=== PATIENT | female | born 1960 ===

== ENCOUNTER 2024-11-02 18:54 | Outpatient (REF) | payer SELFPAY ==
[2024-11-02 20:48] LABS: MANUAL DIFF FLAG NO
[2024-11-02 20:51] LABS: Basophils Absolute Auto 0.1 X10*3/uL (0.0-0.2); Basophils Percent Auto 0.6 % (0-2); Eosinophils Absolute Auto 0.2 X10*3/uL (0.0-0.4); Eosinophils Percent Auto 2.3 % (0-4); Hematocrit 31.7 % (37.0-47.0); Hemoglobin 10.5 g/dl (12.0-16.0); Imm Gran Abs Auto 0.03 X10*3/uL (0.00-0.03); Imm Gran Pct Auto 0.4 % (0.0-0.4); Lymphocytes Absolute Auto 1.6 X10*3/uL (1.2-4.9); Lymphocytes Percent Auto 18.4 % (20-40); Mean Corpuscular HGB Conc 33.1 g/dl (31.0-35.0); Mean Corpuscular Volume 87.6 fL (80.0-98.0); Mean Platelet Volume 9.4 fL (9.4-12.3); Monocytes Absolute Auto 0.5 X10*3/uL (0.1-1.2); Monocytes Percent Auto 5.8 % (2-11); Neutrophils Absolute Auto 6.2 x10*3/uL (2.0-8.3); Neutrophils Percent Auto 72.5 % (45-73); Platelet Count 473 X10*3/uL (160-400); Red Blood Count 3.62 X10*6/uL (4.20-5.50); Red Cell Distribution Width 12.4 % (11.0-16.0); White Blood Count 8.5 X10*3/uL (4.8-10.8)
[2024-11-02 21:01] LABS: Vancomycin Trough 15.1 mcg/mL (10.0-20.0)
[2024-11-02 21:02] LABS: Alanine Aminotransferase 47 U/L (0-31); Albumin Level 3.6 g/dL (3.5-5.0); Alkaline Phosphatase 73 U/L (39-117); Anion Gap 12 (12-20); Aspartate Amino Transferase 41 U/L (5-31); Bilirubin Total 0.2 mg/dL (0.0-1.0); Blood Urea Nitrogen 12 mg/dL (9-16); C Reactive Protein 2.58 mg/dL (< or = 0.50); Calcium 8.7 mg/dL (8.4-10.2); Carbon Dioxide 24 mmol/L (22-29); Chloride 109 mmol/L (96-108); Estimated Glomerular Filt Rate > 60; Glucose Random 147 mg/dL (60-115); Potassium 4.3 mmol/L (3.3-5.1); Sodium 141 mmol/L (135-145); Total Protein 6.4 g/dL (6.5-8.0)
[2024-11-02 21:32] LABS: Erythrocyte Sedimentation Rate 63 MM/HR (0-20)
== END 2024-11-02 18:55 | disposition home or self-care (01) ==
LOC: HO.LAB 18:54
PROVIDERS: PCP Internal Medicine Infectious Disease; Visit Provider Internal Medicine Infectious Disease
DX: T84.54XA Infection and inflammatory reaction due to internal left knee prosthesis, initial encounter (principal)
CPT/HCPCS: 36415; 80053; 80202; 85025; 85652; 86140

== ENCOUNTER 2024-11-09 09:59 | Outpatient (REF) | payer SELFPAY ==
[2024-11-09 10:09] LABS: MANUAL DIFF FLAG NO
[2024-11-09 10:39] LABS: Basophils Absolute Auto 0.1 X10*3/uL (0.0-0.2); Basophils Percent Auto 1.1 % (0-2); Eosinophils Absolute Auto 0.2 X10*3/uL (0.0-0.4); Hematocrit 37.5 % (37.0-47.0); Hemoglobin 11.7 g/dl (12.0-16.0); Imm Gran Abs Auto 0.03 X10*3/uL (0.00-0.03); Imm Gran Pct Auto 0.4 % (0.0-0.4); Lymphocytes Absolute Auto 1.8 X10*3/uL (1.2-4.9); Mean Corpuscular HGB Conc 31.2 g/dl (31.0-35.0); Mean Corpuscular Hemoglobin 27.9 pg (27.0-33.0); Mean Corpuscular Volume 89.5 fL (80.0-98.0); Mean Platelet Volume 9.8 fL (9.4-12.3); Monocytes Absolute Auto 0.5 X10*3/uL (0.1-1.2); Monocytes Percent Auto 6.9 % (2-11); Neutrophils Absolute Auto 4.8 x10*3/uL (2.0-8.3); Neutrophils Percent Auto 64.6 % (45-73); Platelet Count 415 X10*3/uL (160-400); Red Blood Count 4.19 X10*6/uL (4.20-5.50); Red Cell Distribution Width 13.2 % (11.0-16.0); White Blood Count 7.4 X10*3/uL (4.8-10.8)
[2024-11-09 11:13] LABS: Alanine Aminotransferase 20 U/L (0-31); Albumin Level 3.9 g/dL (3.5-5.0); Alkaline Phosphatase 63 U/L (39-117); Anion Gap 12 (12-20); Aspartate Amino Transferase 20 U/L (5-31); Bilirubin Total 0.4 mg/dL (0.0-1.0); Blood Urea Nitrogen 14 mg/dL (9-16); C Reactive Protein 0.42 mg/dL (< or = 0.50); Calcium 9.2 mg/dL (8.4-10.2); Carbon Dioxide 25 mmol/L (22-29); Chloride 108 mmol/L (96-108); Estimated Glomerular Filt Rate > 60; Glucose Random 84 mg/dL (60-115); Potassium 4.6 mmol/L (3.3-5.1); Sodium 140 mmol/L (135-145); Total Protein 6.8 g/dL (6.5-8.0)
[2024-11-09 11:24] LABS: Erythrocyte Sedimentation Rate 33 MM/HR (0-20)
== END 2024-11-09 10:00 | disposition home or self-care (01) ==
LOC: HO.HVNA 09:59
PROVIDERS: Visit Provider Internal Medicine Infectious Disease
DX: T84.54XA Infection and inflammatory reaction due to internal left knee prosthesis, initial encounter (principal); Z79.2 Long term (current) use of antibiotics
CPT/HCPCS: 36415; 80053; 80202; 85025; 85652; 86140

== ENCOUNTER 2024-11-16 09:19 | Outpatient (REF) | payer SELFPAY ==
[2024-11-16 09:28] LABS: MANUAL DIFF FLAG NO
[2024-11-16 09:33] LABS: Basophils Absolute Auto 0.1 X10*3/uL (0.0-0.2); Basophils Percent Auto 1.4 % (0-2); Eosinophils Absolute Auto 0.2 X10*3/uL (0.0-0.4); Eosinophils Percent Auto 4.6 % (0-4); Hematocrit 37.6 % (37.0-47.0); Hemoglobin 12.5 g/dl (12.0-16.0); Imm Gran Abs Auto 0.01 X10*3/uL (0.00-0.03); Imm Gran Pct Auto 0.2 % (0.0-0.4); Lymphocytes Absolute Auto 1.6 X10*3/uL (1.2-4.9); Lymphocytes Percent Auto 31.8 % (20-40); Mean Corpuscular HGB Conc 33.2 g/dl (31.0-35.0); Mean Corpuscular Hemoglobin 28.8 pg (27.0-33.0); Mean Corpuscular Volume 86.6 fL (80.0-98.0); Mean Platelet Volume 10.5 fL (9.4-12.3); Monocytes Absolute Auto 0.5 X10*3/uL (0.1-1.2); Monocytes Percent Auto 9.1 % (2-11); Neutrophils Absolute Auto 2.6 x10*3/uL (2.0-8.3); Neutrophils Percent Auto 52.9 % (45-73); Platelet Count 262 X10*3/uL (160-400); Red Blood Count 4.34 X10*6/uL (4.20-5.50); Red Cell Distribution Width 13.1 % (11.0-16.0)
[2024-11-16 10:17] LABS: Erythrocyte Sedimentation Rate 16 MM/HR (0-20)
[2024-11-16 10:19] LABS: Vancomycin Trough 15.3 mcg/mL (10.0-20.0)
[2024-11-16 10:22] LABS: Alanine Aminotransferase 16 U/L (0-31); Alkaline Phosphatase 64 U/L (39-117); Anion Gap 11 (12-20); Aspartate Amino Transferase 16 U/L (5-31); Bilirubin Total 0.7 mg/dL (0.0-1.0); Blood Urea Nitrogen 16 mg/dL (9-16); C Reactive Protein 0.22 mg/dL (< or = 0.50); Calcium 9.4 mg/dL (8.4-10.2); Carbon Dioxide 25 mmol/L (22-29); Chloride 107 mmol/L (96-108); Estimated Glomerular Filt Rate > 60; Glucose Random 79 mg/dL (60-115); Potassium 4.4 mmol/L (3.3-5.1); Sodium 139 mmol/L (135-145); Total Protein 6.4 g/dL (6.5-8.0)
== END 2024-11-16 09:20 | disposition home or self-care (01) ==
LOC: HO.HVNA 09:19
PROVIDERS: PCP Family Medicine; Visit Provider Family Medicine
DX: T84.54XA Infection and inflammatory reaction due to internal left knee prosthesis, initial encounter (principal)
CPT/HCPCS: 36415; 80053; 80202; 85025; 85652; 86140

== ENCOUNTER 2024-11-23 09:24 | Outpatient (REF) | payer SELFPAY ==
[2024-11-23 09:33] LABS: MANUAL DIFF FLAG NO
[2024-11-23 09:36] LABS: Basophils Percent Auto 1.1 % (0-2); Eosinophils Absolute Auto 0.2 X10*3/uL (0.0-0.4); Eosinophils Percent Auto 5.6 % (0-4); Hematocrit 36.9 % (37.0-47.0); Hemoglobin 12.4 g/dl (12.0-16.0); Imm Gran Abs Auto 0.01 X10*3/uL (0.00-0.03); Imm Gran Pct Auto 0.3 % (0.0-0.4); Lymphocytes Absolute Auto 1.2 X10*3/uL (1.2-4.9); Lymphocytes Percent Auto 33.9 % (20-40); Mean Corpuscular HGB Conc 33.6 g/dl (31.0-35.0); Mean Corpuscular Hemoglobin 28.6 pg (27.0-33.0); Mean Platelet Volume 10.4 fL (9.4-12.3); Monocytes Absolute Auto 0.4 X10*3/uL (0.1-1.2); Monocytes Percent Auto 11.6 % (2-11); Neutrophils Absolute Auto 1.7 x10*3/uL (2.0-8.3); Neutrophils Percent Auto 47.5 % (45-73); Platelet Count 217 X10*3/uL (160-400); Red Blood Count 4.34 X10*6/uL (4.20-5.50); Red Cell Distribution Width 13.1 % (11.0-16.0); White Blood Count 3.5 X10*3/uL (4.8-10.8)
[2024-11-23 10:08] LABS: Alanine Aminotransferase 18 U/L (0-31); Albumin Level 4.1 g/dL (3.5-5.0); Alkaline Phosphatase 56 U/L (39-117); Anion Gap 10 (12-20); Aspartate Amino Transferase 19 U/L (5-31); Bilirubin Total 0.7 mg/dL (0.0-1.0); Blood Urea Nitrogen 17 mg/dL (9-16); C Reactive Protein 0.38 mg/dL (< or = 0.50); Calcium 9.3 mg/dL (8.4-10.2); Carbon Dioxide 25 mmol/L (22-29); Chloride 109 mmol/L (96-108); Estimated Glomerular Filt Rate > 60; Glucose Random 91 mg/dL (60-115); Potassium 4.3 mmol/L (3.3-5.1); Sodium 140 mmol/L (135-145); Total Protein 6.3 g/dL (6.5-8.0)
[2024-11-23 10:16] LABS: Erythrocyte Sedimentation Rate 14 MM/HR (0-20)
--- OUTSIDE RECORDS SUMMARY | 2024-11-23 10:39 | XMS_ITS | Encounter Summary ---
Author Organization [facility] Address [address] [place] [address] Phone Care Team Providers Care Assembler Gold Frame Name Role Phone Iris Serna MD Primary Care Provider +1 [phone] Encounter Details Date Type Department Care Team (Late st Contact Info) Description 07/24/2023 Procedure Pass [facility] [employer] [address] [place] [address] Social History Tobacco Use Types Packs/Day Years Used Date Smoking Tobacco: Never Smokeless Tobacco: Never Alcohol Use Standard Drinks/Week Comments Yes 1 (1 standard drink = 0.6 oz pur e alcohol) Education Answer Date Recorded Are you interested in more education? Not on markel e 12/18/2022 Are you concerned about learning? Not on file 12/18/2022 No 12/18/2022 No 12/18/2022 Digital Access Answer Date Recorded No 01/15/2023 No 01/15/2023 Reliable internet access at home? Not on file 01/15/2023 Device with a working camera? Not on file Sex and Gender Information Value Date Recorded Sex Assigned at Female 07/09/2020 6:01 AM EST Gender Identity Not on file Sexual Orientation Straight 07/09/2020 6: 01 AM EST documented as of this encounter Plan of Treatment Upcoming Encounters Date Type Department Care Team (Late st Contact Info) Description 09/14/2024 Procedure Pass [facility] MR Imaging, Pereyra [address] [place] [address] 05/29/2025 1:20 PM EDT Telemedicine [facility] Endocrine, Diabetes, and Hypertension [address] [address] Johnathan Lange MD 221 [facility] Endocrinology, Diabetes and Hypertension, [facility]-[address] [place] [address] [email or web address] 07/03/2025 12:40 PM EST Appointment [facility] MR Imaging, Pereyra [address] [place] [address] Chance De PA-C [address], [address] 4 [place] [address] [email or web address]. [email or web address] 07/03/2025 1:30 PM EST Office Visit [facility] Department of Neurosurgery [address] [place] [address] Chance De PA-C [address], [address] 4 [place] [address] [email or web address]. KAROL 07/17/2025 1:00 PM EST Evaluation [facility]ispecialty [address] [place] [address] Meghan Duarte, AuD 75 [place] [address] [email or web address] 07/17/2025 1:45 PM EST [facility] [address] [place] [address] Meghan Duarte, AuD 75 [place] [address] [email or web address] documented as of this encounter Visit Diagnoses Not on filedocumented in this encounter Additional Health Concerns Assessment Noted Time PHQ-2 Depression Total Score: 0 03/02/20 23 12:04 PM EDT documented as of this encounter Care Teams Assembler Gold Frame Relationship Specialty Start Date End Date Iris Serna MD [address] [place] [address] PCP - General Family Medicine 04/26/20 documented as of this encounter Additional Source Comments The information contained in this document represents components of the legal health record. It is not the complete legal health record.[facility]
--- OUTSIDE RECORDS SUMMARY | 2024-11-23 10:39 | XMS_ITS | Patient Health Record ---
Author Organization [facility] Address [address] [place] [address] Support Name Relationship Address Phone HEAVEN ESPOSITO Guarantor Unknown [phone] Reason For Referral No Information Medications Medication SIG (Take, Route, Fr equency, Duration) Notes Start Date End Date Status PriLOSEC OTC 20MG 1 ORAL daily for -3 James-MJ 09/08/2011 Active Problems Problem Type SNOMED Code ICD Code Onset Dates Problem Status W/U Status Risk Notes Problem Menopausal symptom (70799041) Symptomatic menopausal or female climacteric states (627.2) Active confirmed Major Problem Gynecological examination normal (684761488263738) Routine gynecological examination (V72.31) Active confirmed Major Plan Of Treatment No Information Insurance Providers Payer Name Payer Address Payer Phone Subscriber Number Group Number Insured Name Patient Relationship to Insured Coverage Start Date Coverage End Date [facility] [address] [place] [address] [id number] AVIBHAV HEAVEN Self - patient is the insured
--- OUTSIDE RECORDS SUMMARY | 2024-11-23 10:39 | XMS_ITS | Encounter Summary ---
Author Organization [facility] Address [address] [place] [address] Phone Care Team Providers Care Founder Name Role Phone Iris Serna MD Primary Care Provider +1 [phone] Encounter Details Date Type Department Care Team (Late st Contact Info) Description 10/10/[address] [facility] CT Imaging, Pereyra [address] [place] [address] Social History Tobacco Use Types Packs/Day Years Used Date Smoking Tobacco: Never Smokeless Tobacco: Never Alcohol Use Standard Drinks/Week Comments Yes 1 (1 standard drink = 0.6 oz pur e alcohol) Sex and Gender Information Value Date Recorded Sex Assigned at Female 07/09/2020 6:01 AM EST Gender Identity Not on file Sexual Orientation Straight 07/09/2020 6: 01 AM EST documented as of this encounter Plan of Treatment Upcoming Encounters Date Type Department Care Team (Late st Contact Info) Description 09/14/2024 Procedure Pass [facility] MR Imaging, Pereyra [address] [place] [address] 05/29/2025 1:20 PM EDT Telemedicine [facility] Endocrine, Diabetes, and Hypertension [address] [place] [address] Johnathan Lange MD [address] [place] [address] Endocrinology, Diabetes and Hypertension, [facility] [place] [address] [email or web address] 07/03/2025 12:40 PM EST Appointment [facility] MR Imaging, Pereyra [address] [place] [address] Chance De PA-C [address], [address] 4 [place] [address] [email or web address]. KAROL 07/03/2025 1:30 PM EST Office Visit [facility] Department of Neurosurgery [address] [place] [address] Chance De PA-C [address], [address] 4 [place] [address] [email or web address]. [email or web address] 07/17/2025 1:00 PM EST Evaluation [facility] Mult[facility]pecialty [address] [place] [address] Meghan Duarte, AuD 75 [place] [address] [email or web address] 07/17/2025 1:45 PM EST [facility] [address] [place] [address] Meghan Duarte, AuD 75 [place] [address] [email or web address] documented as of this encounter Visit Diagnoses Not on filedocumented in this encounter Additional Health Concerns Assessment Noted Time PHQ-2 Depression Total Score: 0 04/16/20 20 12:22 PM EDT documented as of this encounter Care Teams Founder Relationship Specialty Start Date End Date Iris Serna MD [address] [place] [address] PCP - General Family Medicine 04/26/20 documented as of this encounter Additional Source Comments The information contained in this document represents components of the legal health record. It is not the complete legal health record.[facility]
--- OUTSIDE RECORDS SUMMARY | 2024-11-23 10:39 | XMS_ITS | Encounter Summary ---
Author Organization [facility] Address [address] [place] [address] Phone Care Team Providers Care Inventory Control Assistant Name Role Phone Iris Serna MD Primary Care Provider +1 [phone] Encounter Details Date Type Department Care Team (Late st Contact Info) Description 12/15/2022 Procedure Pass [facility] MR Imaging, Pereyra [address] [place] [address] Social History Tobacco Use Types Packs/Day Years Used Date Smoking Tobacco: Never Smokeless Tobacco: Never Alcohol Use Standard Drinks/Week Comments Yes 1 (1 standard drink = 0.6 oz pur e alcohol) Education Answer Date Recorded Are you interested in more education? Not on markel e 12/18/2022 Are you concerned about learning? Not on file 12/18/2022 No 12/18/2022 No 12/18/2022 Sex and Gender Information Value Date Recorded Sex Assigned at Female 07/09/2020 6:01 AM EST Gender Identity Not on file Sexual Orientation Straight 07/09/2020 6: 01 AM EST documented as of this encounter Plan of Treatment Upcoming Encounters Date Type Department Care Team (Late st Contact Info) Description 09/14/2024 Procedure Pass [facility] MR Imaging, Pereyra [address] [place] [address] 05/29/2025 1:20 PM EDT Telemedicine [facility] Endocrine, Diabetes, and Hypertension [address] [place] [address] Johnathan Lange MD [address] [place] [address] Endocrinology, Diabetes and Hypertension, [facility] [place] [address] [email or web address] 07/03/2025 12:40 PM EST Appointment [facility] MR Imaging, Pereyra [address] [place] [address] Chance De PA-C [address], [address] 4 [place] [address] [email or web address]. KAROL 07/03/2025 1:30 PM EST Office Visit [facility] Department of Neurosurgery [address] [place] [address] Chance De PA-C [address], [address] 4 [place] [address] [email or web address]. KAROL 07/17/2025 1:00 PM EST [facility] [place] [address] DuarteMeghan alegria, AuD 75 [place] [address] [email or web address] 07/17/2025 1:45 PM EST [facility] 20 [place] [address] Duarte Meghan M, AuD 75 [place] [address] [email or web address] documented as of this encounter Visit Diagnoses Not on filedocumented in this encounter Additional Health Concerns Assessment Noted Time PHQ-2 Depression Total Score: 0 03/02/20 23 12:04 PM EDT documented as of this encounter Care Teams Inventory Control Assistant Relationship Specialty Start Date End Date Iris Serna MD [address] [place] [address] PCP - General Family Medicine 04/26/20 documented as of this encounter Additional Source Comments The information contained in this document represents components of the legal health record. It is not the complete legal health record.[facility]
--- OUTSIDE RECORDS SUMMARY | 2024-11-23 10:40 | XMS_ITS | Encounter Summary ---
Author Organization [facility] Address [address] [place] [address] Phone Care Team Providers Care Water Purifier Name Role Phone Iris Serna MD Primary Care Provider [phone] [phone] Encounter Details Date Type Department Care Team (Late st Contact Info) Description 06/13/2020 Procedure Pass [facility] CT Imaging, Pereyra [address] [place] [address] Social History Tobacco Use Types Packs/Day Years [...] st Contact Info) Description 09/14/2024 Procedure Pass [facility] MR Imaging, Pereyra [address] [place] [address] 05/29/2025 1:20 PM EDT Telemedicine [facility] Endocrine, Diabetes, and Hypertension [address] [place] [address] Johnathan Lange MD [address] [place] [address] Endocrinology, Diabetes and Hypertension, [facility] [place] [address] [email or web address] 07/03/2025 12:40 PM EST Appointment [facility] MR Imaging, Pereyra [address] [place] [address] Chance De PA-C [address], Floor 4 [place] [address] [email or web address]. KAROL 07/03/2025 1:30 PM EST Office Visit [facility] Department of Neurosurgery [address] [place] [address] Chance De PA-C [address], Floor 4 [place] [address] [email or web address]. KAROL 07/17/2025 1:00 PM EST Evaluation [facility] Mult[facility]pecialty [address] [place] [address] Meghan Duarte, AuD 75 [place] [address] [email or web address] 07/17/2025 1:45 PM EST [facility] [address] [place] [address] Meghan Duarte, AuD 75 [place] [address] [email or web address] documented as of this encounter Visit Diagnoses Not on filedocumented in this encounter Additional Health Concerns Assessment Noted Time PHQ-2 Depression Total Score: 0 04/16/20 20 12:22 PM EDT documented as of this encounter Care Teams Water Purifier Relationship Specialty Start Date End Date Iris Serna MD [address] [place] [address] PCP - General Family Medicine 04/26/20 documented as of this encounter Additional Source Comments The information contained in this document represents components of the legal health record. It is not the complete legal health record.[facility]
--- OUTSIDE RECORDS SUMMARY | 2024-11-23 10:40 | XMS_ITS | Encounter Summary ---
Author Organization [facility] Address [address] [place] [address] Phone Care Team Providers Care Director Of Content And Programming Name Role Phone Iris Serna MD Primary Care Provider +1 -[phone] Encounter Details Date Type Department Care Team (Late st Contact Info) Description 01/07/2021 Procedure Pass [facility] [employer] [address] [address] Social History Tobacco Use Types Packs/Day Years [...] st Contact Info) Description 09/14/2024 Procedure Pass [facility] MR Imaging, Pereyra [address] [place] [address] 05/29/2025 1:20 PM EDT Telemedicine [facility] Endocrine, Diabetes, and Hypertension [address] [place] [address] Johnathan Lange MD 221 [facility] Endocrinology, Diabetes and Hypertension, [facility] [place] [address] [email or web address] 07/03/2025 12:40 PM EST Appointment [facility] MR Imaging, Pereyra [address] [place] [address] Chance De PA-C [address], Floor 4 [place] [address] [email or web address]. KAROL 07/03/2025 1:30 PM EST Office Visit [facility] Department of Neurosurgery [address] [place] [address] Chance De PA-C [address], Floor 4 [place] [address] [email or web address]. KAROL 07/17/2025 1:00 PM EST Evaluation [facility]pecialty [address] [place] [address] Meghan Duarte, AuD 75 [place] [address] [email or web address] 07/17/2025 1:45 PM EST [facility] [address] [place] [address] Meghan Duarte, AuD 75 [place] [address] [email or web address] documented as of this encounter Visit Diagnoses Not on filedocumented in this encounter Additional Health Concerns Assessment Noted Time PHQ-2 Depression Total Score: 0 04/16/20 20 12:22 PM EDT documented as of this encounter Care Teams Director Of Content And Programming Relationship Specialty Start Date End Date Iris Serna MD [address] [place] [address] PCP - General Family Medicine 04/26/20 documented as of this encounter Additional Source Comments The information contained in this document represents components of the legal health record. It is not the complete legal health record.[facility]
--- OUTSIDE RECORDS SUMMARY | 2024-11-23 10:40 | XMS_ITS | Encounter Summary ---
Author Organization [facility] Address [address] [address] Phone Care Team Providers Care Construction Engineering Manager Name Role Phone Iris Serna MD Primary Care Provider [phone] [phone] Encounter Details Date Type Department Care Team (Late st Contact Info) Description 07/11/2020 Procedure Pass [facility] [address] [place] [address] Social History Tobacco Use Types Packs/Day Years [...] AM EST documented as of this encounter Last Filed Vital Signs Vital Sign Reading Time Taken Comments Blood Pressure - - Pulse - - Temperature - - Respiratory Rate - - Oxygen Saturation - - Inhaled Oxygen Concentration - - Weight 83 kg (182 lb 15.7 oz) 07/12/2020 12:47 A M EST Height 160 cm (5' 3 ) 07/12/2020 12:47 AM EST Body Mass Index 32.41 07/12/2020 12:47 AM EST documented in this encounter Plan of Treatment Upcoming Encounters Date Type Department Care Team (Late st Contact Info) Description 09/14/2024 Procedure Pass [facility] MR Imaging, Pereyra [address] [place] [address] 05/29/2025 1:20 PM EDT Telemedicine [facility] Endocrine, Diabetes, and Hypertension [address] [place] [address] [place] [address] Johnathan Lange MD 221 [facility] Endocrinology, Diabetes and Hypertension, [address] [place] [address] [email or web address] 07/03/2025 12:40 PM EST Appointment [facility] MR Imaging, Pereyra [address] [place] [address] Chance De PA-C [address], [address] 4 [place] [address] [email or web address]@[email or web address] KAROL 07/03/2025 1:30 PM EST Office Visit [facility] Department of Neurosurgery [address] [place] [address] Chance De PA-C 60 [facility], Floor 4 [place] [address] [email or web address]. KAROL 07/17/2025 1:00 PM EST [facility] [address] [place] [address] Meghan Duarte, AuD 75 [place] [address] [email or web address] 07/17/2025 1:45 PM EST [facility] [address] [place] [address] Meghan Duarte, AuD 75 [place] [address] [email or web address] documented as of this encounter Visit Diagnoses Not on filedocumented in this encounter Additional Health Concerns Assessment Noted Time PHQ-2 Depression Total Score: 0 04/16/20 20 12:22 PM EDT documented as of this encounter Care Teams Construction Engineering Manager Relationship Specialty Start Date End Date Iris Serna MD [address] [place] [address] PCP - General Family Medicine 04/26/20 documented as of this encounter Additional Source Comments The information contained in this document represents components of the legal health record. It is not the complete legal health record.[facility]
--- OUTSIDE RECORDS SUMMARY | 2024-11-23 10:40 | XMS_ITS | Encounter Summary ---
Author Organization [facility] Address [address] [place] [address] Phone Care Team Providers Care Skidder Lever Operator Name Role Phone Derrick Donovan MD Primary Care Provider Iris Serna MD Primary Care Provider [phone] [phone] Encounter Details Date Type Department Care Team (Late st Contact Info) Description 09/28/2019 Procedure Pass [facility] MR Imaging, Pereyra [address] [place] [address] Social History Tobacco Use Types Packs/Day Years Used Date Smoking Tobacco: Never Smokeless Tobacco: Never Alcohol Use Standard Drinks/Week Comments Not Asked 0 (1 standard drink = 0.6 oz pur e alcohol) Sex and Gender Information Value Date Recorded Sex Assigned at Female 07/09/2020 6:01 AM EST Gender Identity Not on file Sexual Orientation Straight 07/09/2020 6: 01 AM EST documented as of this encounter Plan of Treatment Upcoming Encounters Date Type Department Care Team (Late st Contact Info) Description 09/14/2024 Procedure Pass [facility] MR Imaging, Pereyra [address] [place] [address] 05/29/2025 1:20 PM EDT Telemedicine [facility] Endocrine, Diabetes, and Hypertension [address] [place] [address] Johnathan Lange MD [address] [place] [address] Endocrinology, Diabetes and Hypertension, B-[address] [place] [address] [email or web address] 07/03/2025 12:40 PM EST Appointment [facility] MR Imaging, Pereyra [address] [place] [address] Chance De PA-C [address], [address] 4 [place] [address] [email or web address] KAROL 07/03/2025 1:30 PM EST Office Visit [facility] Department of Neurosurgery [address] [place] [address] Chance De PA-C [address], Floor 4 [place] [address] [email or web address]. KAROL 07/17/2025 1:00 PM EST [facility] [address] [place] [address] Meghan Duarte, AuD 75 [place] [address] [email or web address] 07/17/2025 1:45 PM EST [facility] [address] [place] [address] Meghan Duarte, AuD 75 [place] [address] [email or web address] documented as of this encounter Visit Diagnoses Not on filedocumented in this encounter Additional Health Concerns Assessment Noted Time PHQ-2 Depression Total Score: 0 06/13/20 19 12:35 PM EDT documented as of this encounter Care Teams Skidder Lever Operator Relationship Specialty Start Date End Date Derrick Donovan MD [address] [place] [address] PCP - General 02/21/14 04/25/20 Iris Serna MD [address] [place] [address] PCP - General Family Medicine 04/26/20 documented as of this encounter Additional Source Comments The information contained in this document represents components of the legal health record. It is not the complete legal health record.[facility]
--- OUTSIDE RECORDS SUMMARY | 2024-11-23 10:40 | XMS_ITS | Encounter Summary ---
Author Organization [facility] Address [address] [place] [address] Phone Care Team Providers Care Vocational Examiner Name Role Phone Derrick Donovan MD Primary Care Provider Iris Serna MD Primary Care Provider [phone] [phone] Encounter Details Date Type Department Care Team (Late st Contact Info) Description 09/26/2019 Procedure Pass [facility] MR Imaging, Pereyra [address] [place] [address] Social History Tobacco Use Types Packs/Day Years [...] st Contact Info) Description 09/14/2024 Procedure Pass [facility] MR Imaging, Pereyra [address] [place] [address] 05/29/2025 1:20 PM EDT Telemedicine [facility] Endocrine, Diabetes, and Hypertension [address] [place] [address] Johnathan Lange MD [address] [place] [address] Endocrinology, Diabetes and Hypertension, B-[address] [place] [address] [email or web address] 07/03/2025 12:40 PM EST Appointment [facility] MR Imaging, Pereyra [address] [place] [address] Chance De PA-C [address], [address] 4 [place] [address] [email or web address]@[email or web address] KAROL 07/03/2025 1:30 PM EST Office Visit [facility] Department of Neurosurgery [address] [place] [address] Chance De PA-C [address], [address] 4 [place] [address] [email or web address]@[facility]. KAROL 07/17/2025 1:00 PM EST [facility] [address] [place] [address] Meghan Duarte, AuD 75 [place] [address] [email or web address] 07/17/2025 1:45 PM EST [facility] [address] [place] [address] Meghan Duarte, AuD 75 [place] [address] [email or web address] documented as of this encounter Visit Diagnoses Not on filedocumented in this encounter Additional Health Concerns Assessment Noted Time PHQ-2 Depression Total Score: 0 06/13/20 19 12:35 PM EDT documented as of this encounter Care Teams Vocational Examiner Relationship Specialty Start Date End Date Derrick Donovan MD [address] [place] [address] PCP - General 02/21/14 04/25/20 Iris Serna MD [address] [place] [address] PCP - General Family Medicine 04/26/20 documented as of this encounter Additional Source Comments The information contained in this document represents components of the legal health record. It is not the complete legal health record.[facility]
--- OUTSIDE RECORDS SUMMARY | 2024-11-23 10:40 | XMS_ITS | Encounter Summary ---
Author Organization [facility] Address [address] [place] [address] Phone Care Team Providers Care Drafter Patent Name Role Phone Iris Serna MD Primary Care Provider [phone] [phone] Encounter Details Date Type Department Care Team (Late st Contact Info) Description 09/05/2023 Ancillary Orders [facility] 75 [place] [address] Jalyn Dugan, NEWSPAPER DISTRIBUTOR SUPERVISOR 850 [facility], [address] [place] [address] [email or web address] Meralgia paresthetica, unspecified laterality (Primary Dx) Social History Tobacco Use Types Packs/Day Years [...] st Contact Info) Description 09/14/2024 Procedure Pass [facility] MR Imaging, Hafsa [address] [place] [address] 05/29/2025 1:20 PM EDT Telemedicine [facility] Endocrine, Diabetes, and Hypertension [address] [address] Johnathan Lange MD [address] [place] [address] Endocrinology, Diabetes and Hypertension, RFB-2 [place] [address] [email or web address] 07/03/2025 12:40 PM EST Appointment [facility] MR Walker, Hafsa [address] [place] [address] Chance De PA-C 60 [facility], Floor 4 [place] [address] [email or web address]. [email or web address] 07/03/2025 1:30 PM EST Office Visit [facility] Department of Neurosurgery [address] [place] [address] Chance De PA-C 60 [facility], Floor 4 [place] [address] [email or web address]. KAROL 07/17/2025 1:00 PM EST Evaluation [facility] Multispecialty [address] [place] [address] Meghan Duarte, AuD 75 [place] [address] [email or web address] 07/17/2025 1:45 PM EST [facility] [address] [place] [address] Meghan Duarte, AuD 75 [place] [address] [email or web address] documented as of this encounter Results * US Thyroid Gland (09/08/2023 11:03 AM EST) Anatomical Region Laterality Modality Neck, Head, Chest Ultrasound 09/08/2023 11:0 5 AM EST Impressions 09/08/2023 11:32 AM EST 1. ??Diffusely heterogeneous thyroid with unchanged subcentimeter nodules. Narrative 09/08/2023 11:32 AM EST US THYROID GLAND Referring clinician's provided indication for this examination in [facility]: Follow Up Limited Survey TECHNIQUE: Thyroid/Neck Ultrasound COMPARISON: US THYROID GLAND FINDINGS: Thyroid gland: Right lobe: 4.6 x 1.7 x 1.4 cm. Left lobe: 4.3 x 2.3 x 1.5 cm. NODULE #1: 8 x 6 x 6 mm, mid lobe ---Solid/almost completely solid, isoechoic, wider than tall, smooth margin, no echogenic foci, central vascularity minimal. ---Size compared to prior: stable. ? Isthmus thickness: 0.5 cm NODULE #1: 6 x 5 x 4 mm, left ---Solid/almost completely solid. ---Size compared to prior: stable. ?? Lymph nodes: Benign appearing 7 x 7 x 3 mm left mid IJ chain Procedure Note Ester Burton MD - 09/08/2023 US THYROID GLAND Referring clinician's provided indication for this examination in [facility]:Follow Up Limited Survey TECHNIQUE: Thyroid/Neck Ultrasound COMPARISON: US THYROID GLAND FINDINGS: Thyroid gland: Right lobe: 4.6 x 1.7 x 1.4 cm. Left lobe: 4.3 x 2.3 x 1.5 cm. NODULE #1: 8 x 6 x 6 mm, mid lobe ---Solid/almost completely solid, isoechoic, wider than tall, smoothmargin, no echogenic foci, central vascularity minimal. ---Size compared to prior: stable. Isthmus thickness: 0.5 cm NODULE #1: 6 x 5 x 4 mm, left ---Solid/almost completely solid. ---Size compared to prior: stable. Lymph nodes: Benign appearing 7 x 7 x 3 mm left mid IJ chain IMPRESSION: 1. Diffusely heterogeneous thyroid with unchanged subcentimeternodules. Jalyn Dugan NEWSPAPER DISTRIBUTOR SUPERVISOR IMG US THYROI D documented in this encounter Visit Diagnoses Diagnosis Meralgia paresthetica, unspecified laterality- Primary Meralgia paresthetica, unspecified laterality documented in this encounter Additional Health Concerns Assessment Noted Time PHQ-2 Depression Total Score: 0 03/02/20 23 12:04 PM EDT documented as of this encounter Care Teams Drafter Patent Relationship Specialty Start Date End Date Iris Serna MD [address] [place] [address] PCP - General Family Medicine 04/26/20 documented as of this encounter Additional Source Comments The information contained in this document represents components of the legal health record. It is not the complete legal health record.[facility]
--- OUTSIDE RECORDS SUMMARY | 2024-11-23 10:40 | XMS_ITS | Encounter Summary ---
Author Organization [facility] Address [address] [place] [address] Phone Care Team Providers Care Director Of Agriculture Name Role Phone Iris Serna MD Primary Care Provider [phone] [phone] Encounter Details Date Type Department Care Team (Late st Contact Info) Description 11/21/2020 Procedure Pass [facility] Angio Interventional Radiology [address] [place] [address] Social History Tobacco Use Types Packs/Day Years [...] Encounters Date Type Department Care Team (Late Contact Info) Description 09/14/2024 Procedure Pass [facility] MR Imaging, Pereyra 60 [place] [address] 05/29/2025 1:20 PM EDT Telemedicine [facility] Endocrine, Diabetes, and Hypertension [address] [place] [address] Johnathan Lange MD [address] [place] [address] Endocrinology, Diabetes and Hypertension, [facility]2 [place] [address] [email or web address] 07/03/2025 12:40 PM EST Appointment [facility] MR Imaging, Pereyra [address] [place] [address] Chance De PA-C [address], Floor 4 [place] [address] [email or web address]. [email or web address] 07/03/2025 1:30 PM EST Office Visit [facility] Department of Neurosurgery [address] [place] [address] Chance De PA-C [address], Floor 4 [place] [address] [email or web address]. [email or web address] 07/17/2025 1:00 PM EST Evaluation [facility] Multispecialty 20 [place] [address] Meghan Duarte, AuD 75 [place] [address] [email or web address] 07/17/2025 1:45 PM EST Evaluation [facility] 20 [place] [address] Meghan Duarte, AuD 75 [place] [address] [email or web address] documented as of this encounter Visit Diagnoses Not on filedocumented in this encounter Additional Health Concerns Assessment Noted Time PHQ-2 Depression Total Score: 0 04/16/20 20 12:22 PM EDT documented as of this encounter Care Teams Director Of Agriculture Relationship Specialty Start Date End Date Iris Serna MD [address] [place] [address] PCP - General Family Medicine 04/26/20 documented as of this encounter Additional Source Comments The information contained in this document represents components of the legal health record. It is not the complete legal health record.[facility]
--- OUTSIDE RECORDS SUMMARY | 2024-11-23 10:40 | XMS_ITS | Encounter Summary ---
Author Organization [facility] Address 399 [facility] [address] [place] [address] Phone Care Team Providers Care Oracle Adf Consultant Name Role Phone Iris Serna MD Primary Care Provider [phone] [phone] Encounter Details Date Type Department Care Team (Late st Contact Info) Description 09/28/2024 Procedure Pass [address] [place] [address] Social History Tobacco Use Types Packs/Day Years [...] st Contact Info) Description 09/14/2024 Procedure Pass [facility] MR Imaging, Pereyra [address] [place] [address] 05/29/2025 1:20 PM EDT Telemedicine [facility] Endocrine, Diabetes, and Hypertension [address] [address] Johnathan Lange MD 221 [facility] Endocrinology, Diabetes and Hypertension, RFB-[address] [place] [address] [email or web address] 07/03/2025 12:40 PM EST Appointment [facility] MR Imaging, Pereyra [address] [place] [address] Chance De PA-C [address], Floor 4 [place] [address] [email or web address]. KAROL 07/03/2025 1:30 PM EST Office Visit [facility] Department of Neurosurgery [address] [place] [address] Chance De PA-C [address], Floor 4 [place] [address] [email or web address]. KAROL 07/17/2025 1:00 PM EST [facility] [address] [place] [address] Meghan Duarte, AuD 75 [place] [address] [email or web address] 07/17/2025 1:45 PM EST [facility] [address] [place] [address] Meghan Duarte, AuD 75 [place] [address] [email or web address] documented as of this encounter Visit Diagnoses Not on filedocumented in this encounter Additional Health Concerns Assessment Noted Time PHQ-2 Depression Total Score: 0 03/02/20 23 12:04 PM EDT documented as of this encounter Care Teams Oracle Adf Consultant Relationship Specialty Start Date End Date Iris Serna MD [address] [place] [phone] (Work) PCP - General Family Medicine 04/26/20 documented as of this encounter Additional Source Comments The information contained in this document represents components of the legal health record. It is not the complete legal health record.[facility]
--- OUTSIDE RECORDS SUMMARY | 2024-11-23 10:40 | XMS_ITS | Encounter Summary ---
Author Organization [facility] Address [address] [place] [address] Phone Care Team Providers Care Project Engineering Manager Name Role Phone Derrick Donovan MD Primary Care Provider Iris Serna MD Primary Care Provider [phone] [phone] Encounter Details Date Type Department Care Team (Late st Contact Info) Description 09/28/2019 Procedure Pass [facility] MR Imaging, Pereyra [address] [place] [address] Social History Tobacco Use Types Packs/Day Years [...] st Contact Info) Description 09/14/2024 Procedure Pass [facility] MR Imaging, Pereyra [address] [place] [address] 05/29/2025 1:20 PM EDT Telemedicine [facility] Endocrine, Diabetes, and Hypertension [address] [place] [address] Johnathan Lange MD [address] [place] [address] Endocrinology, Diabetes and Hypertension, B-[address] [place] [address] [email or web address] 07/03/2025 12:40 PM EST Appointment [facility] MR Imaging, Pereyra [address] [place] [address] Chance De PA-C [address], Floor 4 [place] [address] [email or web address] KAROL 07/03/2025 1:30 PM EST Office Visit [facility] Department of Neurosurgery [address] [place] [address] Chance De PA-C [address], Floor 4 [place] [address] [email or web address]. KAROL 07/17/2025 1:00 PM EST [facility] 20 [place] [address] Meghan Duarte, AuD 75 [place] [address] [email or web address] 07/17/2025 1:45 PM EST [facility] 20 [place] [address] Meghan Duarte, AuD 75 [place] [address] [email or web address] documented as of this encounter Visit Diagnoses Not on filedocumented in this encounter Additional Health Concerns Assessment Noted Time PHQ-2 Depression Total Score: 0 06/13/20 19 12:35 PM EDT documented as of this encounter Care Teams Project Engineering Manager Relationship Specialty Start Date End Date Derrick Donovan MD [address] [place] [address] PCP - General 02/21/14 04/25/20 Iris Serna MD [address] [place] [address] PCP - General Family Medicine 04/26/20 documented as of this encounter Additional Source Comments The information contained in this document represents components of the legal health record. It is not the complete legal health record.[facility]
--- OUTSIDE RECORDS SUMMARY | 2024-11-23 10:40 | XMS_ITS | Patient Health Record ---
Author Organization [facility] Address [address] [place] [address] [place] [id number] Care Team Providers Care Chipper Feeder Name Role Phone Angel Major Primary Care Provider Kaleigh Wyman Unavailable [phone] Reason For Referral No Information Medications Medication SIG (Take, Route, Frequency, Duration) Notes Start Date End Date Status Tums Unknown methIMAzole Unknown Aspir 81 Unknown NexIUM 24HR Unknown Social History Alcohol Use Question Answer Notes Did you have a drink containing alcohol in the p ast year? No Points 0 Interpretation Negative Problems Problem Type SNOMED Code ICD Code Onset Dates Problem Status W/U Status Risk Notes Problem Current tear of medial cartilage AND/OR meniscus of knee (613115585) Medial meniscal tear (836.0) Active confirmed Problem Primary osteoarthritis of both knees (M17.0) Active confirmed Plan Of Treatment Pending Test Test Name Order Date Knee, bilateral (UPR,SR,LAT, ROS) 2012 EKG (pre-operative) 05/09/2014 LE - ACTIVE ICE KNEE 06/13/2014 Knee, right (DUNCAN/UPR,LAT,DUNCAN/SR,DUNCAN/ROS) 12/17/2012 LE - HINGED GRIPPER KNEE BRACE 6 Insurance Providers Payer Name Payer Address Payer Phone Subscriber Number Group Number Insured Name Patient Relationship to Insured Coverage Start Date Coverage End Date [employer] [address] [place] [id number] [phone] [id number] Brenda Pichardo Self - patient is the insured Medications Administered Medication Instructions Date of Administration Dosage Notes Euflexxa #2 SELF PAY 03/22/2018 Euflexxa #3 SELF PAY 03/29/2018 Euflexxa #1 SELF PAY 03/15/2018 Euflexxa #1, we supply 06/15/2015 Euflexxa #1, we supply 04/04/2016 Euflexxa #1, we supply 11/03/2016 Euflexxa #1, we supply 08/10/2017 Euflexxa #2, we supply 06/28/2015 Euflexxa #2, we supply 04/11/2016 Euflexxa #2, we supply 11/10/2016 Euflexxa #2, we supply 08/18/2017 Euflexxa #3, we supply 07/05/2015 Euflexxa #3, we supply 04/18/2016 Euflexxa #3, we supply 11/17/2016 Euflexxa #3, we supply 08/31/2017 INJ Depo/Lido (YS-NT-qdo-hip-knee) 06/02/2013 INJ Depo/Lido (PG-LX-wri-hip-knee) 08/05/2013 INJ Depo/Lido (RQ-QI-kem-hip-knee) 01/27/2014 INJ Depo/Lido (EX-QI-blw-hip-knee) 07/07/2014 INJ Depo/Lido (JT-GT-zgf-hip-knee) 07/07/2014 INJ Depo/Lido (WW-KP-pvz-hip-knee) 03/12/2015 2/8 INJ Gini/Lido (SW-JS-wtu-hip-knee) 03/28/2016 2/6 INJ Gini/Lido (BS-QI-hzj-hip-knee) 09/02/2018 Medical (General) History Medical History History ICD Code Rheumatoid arthritis Graves Disease Surgical History Surgery Date(Month/Year) Right knee arthroscopy, part ial medial menisectomy, chondroplasty patella 06/28/14 JPD Right knee arthroscopy, medial menisecto my, chondroplasty patella 04/27/13 JPD Salpingo-oophorectomy T & A Right Knee arthroscopy 2007
--- OUTSIDE RECORDS SUMMARY | 2024-11-23 10:40 | XMS_ITS | Encounter Summary ---
Author Organization [facility] Address [address] [place] [address] Phone Care Team Providers Care Registered Nurse Maternity Name Role Phone Iris Serna MD Primary Care Provider [phone] [phone] Encounter Details Date Type Department Care Team (Late st Contact Info) Description 07/11/2020 Procedure Pass [facility] Periop 75 [place] [address] Social History Tobacco Use Types Packs/Day Years [...] st Contact Info) Description 09/14/2024 Procedure Pass [facility] MR Imaging, Pereyra 60 [place] [address] 05/29/2025 1:20 PM EDT Telemedicine [facility] Endocrine, Diabetes, and Hypertension [address] [place] [address] Johnathan Lange MD [address] [place] [address] Endocrinology, Diabetes and Hypertension, [facility] [place] [address] [email or web address] 07/03/2025 12:40 PM EST Appointment [facility] MR Imaging, Pereyra [address] [place] [address] Chance De PA-C [address], Floor 4 [place] [address] [email or web address]. KAROL 07/03/2025 1:30 PM EST Office Visit [facility] Department of Neurosurgery [address] [place] [address] Chance De PA-C [address], Floor 4 [place] [address] [email or web address]. [email or web address] 07/17/2025 1:00 PM EST Evaluation [facility] Multispecialty [address] [place] [address] Meghan Duarte, AuD 75 [place] [address] [email or web address] 07/17/2025 1:45 PM EST [facility] [address] [place] [address] Meghan Duarte, AuD 75 [place] [address] [email or web address] documented as of this encounter Visit Diagnoses Not on filedocumented in this encounter Additional Health Concerns Assessment Noted Time PHQ-2 Depression Total Score: 0 04/16/20 20 12:22 PM EDT documented as of this encounter Care Teams Registered Nurse Maternity Relationship Specialty Start Date End Date Iris Serna MD [address] [place] [address] PCP - General Family Medicine 04/26/20 documented as of this encounter Additional Source Comments The information contained in this document represents components of the legal health record. It is not the complete legal health record.[facility]
--- OUTSIDE RECORDS SUMMARY | 2024-11-23 10:40 | XMS_ITS | Encounter Summary ---
Author Organization [facility] Address [address] [facility] [address] [place] [address] Phone Care Team Providers Care Tar Chaser Name Role Phone Iris Serna MD Primary Care Provider [phone] [phone] Encounter Details Date Type Department Care Team (Late st Contact Info) Description 05/01/2020 Transcribe Orders [facility] 75 [place] [address] Fabienne Goss [address] [place] [address] [email or web address] Social History Tobacco Use Types Packs/Day Years [...] st Contact Info) Description 09/14/2024 Procedure Pass [facility] MR Imaging, Pereyra [address] [place] [address] 05/29/2025 1:20 PM EDT Telemedicine [facility] Endocrine, Diabetes, and Hypertension [address] [place] [address] Johnathan Lange MD [address] [place] [address] Endocrinology, Diabetes and Hypertension, [facility] [place] [address] [email or web address] 07/03/2025 12:40 PM EST Appointment [facility] MR Imaging, Pereyra [address] [place] [address] Chance De PA-C [address], Floor 4 [place] [address] [email or web address]. KAROL 07/03/2025 1:30 PM EST Office Visit [facility] Department of Neurosurgery [address] [place] [address] Chance De PA-C [address], Floor 4 [place] [address] [email or web address]. KAROL 07/17/2025 1:00 PM EST [facility] 20 [place] [address] Meghan Duarte, AuD 75 [place] [address] [email or web address] 07/17/2025 1:45 PM EST [facility] [address] [place] [address] Meghan Duarte, AuD 75 [place] [address] [email or web address] documented as of this encounter Results * US Pelvis Outside (No Interpretation) (05/01/2020 2:30 PM EDT) Narrative [facility] - 05/01/2020 2:30 PM EDT This study is for PACS storage only and not for interpretation. Kole Romeo MD IMG OUTSIDE IMAGING W/OUT INTERPRETATION [facility] * CT Abdomen/Pelvis Outside (No Interpretation) (05/01/2020 2:30 PM EDT) Narrative [facility] - 05/01/2020 2:30 PM EDT This study is for PACS storage only and not for interpretation. Kole Romeo MD IMG OUTSIDE IMAGING W/OUT INTERPRETATION Performing Organization Address [facility] de Phone Number [facility] * CT Abdomen/Pelvis Outside (No Interpretation) (05/01/2020 2:30 PM EDT) Narrative [facility] - 05/01/2020 2:30 PM EDT This study is for PACS storage only and not for interpretation. Kole Romeo MD IMG OUTSIDE IMAGING W/OUT INTERPRETATION Performing Organization Address [facility] de Phone Number [facility] documented in this encounter Visit Diagnoses Not on filedocumented in this encounter Additional Health Concerns Assessment Noted Time PHQ-2 Depression Total Score: 0 04/16/20 20 12:22 PM EDT documented as of this encounter Care Teams Tar Chaser Relationship Specialty Start Date End Date Iris Serna MD [address] [place] [address] PCP - General Family Medicine 04/26/20 documented as of this encounter Additional Source Comments The information contained in this document represents components of the legal health record. It is not the complete legal health record.[facility]
--- OUTSIDE RECORDS SUMMARY | 2024-11-23 10:40 | XMS_ITS | Encounter Summary ---
Author Organization [facility] Address [address] [place] [address] [place] [address] Phone Care Team Providers Care Voicer Name Role Phone Derrick Donovan MD Primary Care Provider Iris Serna MD Primary Care Provider [phone] Encounter Details Date Type Department Care Team (Late st Contact Info) Description 10/06/2016 Transcribe Orders [facility] Endocrine, Diabetes, and Hypertension [address] [address] Ronna Hancock 221 [facility] [place] [address] [email or web address] Thyroid nodule (Primary Dx) Social History Tobacco Use Types Packs/Day Years Used Date Smoking Tobacco: Never Alcohol Use Standard Drinks/Week Comments [...] st Contact Info) Description 09/14/2024 Procedure Pass [facility] MR Imaging, Pereyra [address] [place] [address] 05/29/2025 1:20 PM EDT Telemedicine [facility] Endocrine, Diabetes, and Hypertension [address] [address] Johnathan Lange MD 221 [facility] Endocrinology, Diabetes and Hypertension, RFB-2 [place] [address] [email or web address] 07/03/2025 12:40 PM EST Appointment [facility] MR Imaging, Pereyra [address] [place] [address] Chance De PA-C [address], [address] 4 [place] [address] [email or web address]. [email or web address] 07/03/2025 1:30 PM EST Office Visit [facility] Department of Neurosurgery [address] [place] [address] Chance De PA-C [address], [address] 4 [place] [address] [email or web address]. KAROL 07/17/2025 1:00 PM EST [facility] 20 [place] [address] Meghan Duarte, AuD [address] [place] [address] [email or web address] 07/17/2025 1:45 PM EST [facility] 20 [place] [address] Meghan Duarte, AuD 75 [place] [address] [email or web address] documented as of this encounter Visit Diagnoses Diagnosis Thyroid nodule- Primary Nontoxic uninodular goiter documented in this encounter Care Teams Voicer Relationship Specialty Start Date End Date Derrick Donovan MD [address] [place] [address] PCP - General 02/21/14 04/25/20 Iris Serna MD [address] [place] [address] PCP - General Family Medicine 04/26/20 documented as of this encounter Additional Source Comments The information contained in this document represents components of the legal health record. It is not the complete legal health record.[facility]
--- OUTSIDE RECORDS SUMMARY | 2024-11-23 10:40 | XMS_ITS | Encounter Summary ---
Author Organization [facility] Address [address] [place] [address] Phone Care Team Providers Care Agent Name Role Phone Iris Serna MD Primary Care Provider [phone] Encounter Details Date Type Department Care Team (Late st Contact Info) Description 03/13/2022 Procedure Pass [facility] MR Imaging, [address] [place] [address] Social History Tobacco Use Types Packs/Day Years [...] st Contact Info) Description 09/14/2024 Procedure Pass [facility] MR Imaging, [address] [place] [address] 05/29/2025 1:20 PM EDT Telemedicine [facility] Endocrine, Diabetes, and Hypertension [address] [place] [address] Johnathan Lange MD [address] [place] [address] Endocrinology, Diabetes and Hypertension, [facility] [place] [address] [email or web address] 07/03/2025 12:40 PM EST Appointment [facility] MR Imaging, [address] [place] [address] Chance De PA-C [address] [place] [address] [email or web address]. [email or web address] 07/03/2025 1:30 PM EST Office Visit [facility] Department of Neurosurgery [address] [place] [address] Chance De PA-C [address] [place] [address] [email or web address] 07/17/2025 1:00 PM EST Evaluation [facility] [address] [place] [address] Meghan Duarte, AuD [address] [place] [address] [email or web address] 07/17/2025 1:45 PM EST [facility] [address] [place] [address] Meghan Duarte, AuD [address] [place] [address] [email or web address] documented as of this encounter Visit Diagnoses Not on filedocumented in this encounter Additional Health Concerns Assessment Noted Time PHQ-2 Depression Total Score: 0 03/03/20 22 11:21 AM EDT documented as of this encounter Care Teams Agent Relationship Specialty Start Date End Date Iris Serna MD [address] [place] [address] PCP - General Family Medicine 04/26/20 documented as of this encounter Additional Source Comments The information contained in this document represents components of the legal health record. It is not the complete legal health record.[facility]
--- OUTSIDE RECORDS SUMMARY | 2024-11-23 10:40 | XMS_ITS | Encounter Summary ---
Author Organization [facility] Address [address] [place] [address] Phone Care Team Providers Care Plate Painter Name Role Phone Iris Serna MD Primary Care Provider [phone] Encounter Details Date Type Department Care Team (Late st Contact Info) Description 07/11/2020 Procedure Pass [facility] [address] [place] [address] Social History Tobacco Use Types Packs/Day Years [...] st Contact Info) Description 09/14/2024 Procedure Pass [facility] MR Imaging, [address] [place] [address] 05/29/2025 1:20 PM EDT Telemedicine [facility] Endocrine, Diabetes, and Hypertension [address] [place] [address] Johnathan Lange MD [address] [place] [address] Endocrinology, Diabetes and Hypertension, [address] [place] [address] [email or web address] 07/03/2025 12:40 PM EST Appointment [facility] MR Imaging, [address] [place] [address] Chance De PA-C [address] [place] [address] [email or web address]. KAROL 07/03/2025 1:30 PM EST Office Visit [facility] Department of Neurosurgery [address] [place] [address] Chance De PA-C [address] [place] [address] [email or web address] 07/17/2025 1:00 PM EST Evaluation [facility] [address] [place] [address] Meghan Duarte, AuD [address] [place] [address] [email or web address] 07/17/2025 1:45 PM EST [facility] [address] [place] [address] Meghan Duarte, AuD [address] [place] [address] [email or web address] documented as of this encounter Visit Diagnoses Not on filedocumented in this encounter Additional Health Concerns Assessment Noted Time PHQ-2 Depression Total Score: 0 04/16/20 20 12:22 PM EDT documented as of this encounter Care Teams Plate Painter Relationship Specialty Start Date End Date Iris Serna MD [address] [place] [address] PCP - General Family Medicine 04/26/20 documented as of this encounter Additional Source Comments The information contained in this document represents components of the legal health record. It is not the complete legal health record.[facility]
--- OUTSIDE RECORDS SUMMARY | 2024-11-23 10:40 | XMS_ITS | Encounter Summary ---
Author Organization [facility] Address [address] [place] [address] Phone Care Team Providers Care House Officer Name Role Phone Iris Serna MD Primary Care Provider [phone] Encounter Details Date Type Department Care Team (Late st Contact Info) Description 08/30/2020 Procedure Pass [facility] MR Imaging, [address] [place] [address] Social History Tobacco Use Types Packs/Day Years [...] st Contact Info) Description 09/14/2024 Procedure Pass [facility] MR Imaging, [address] [place] [address] 05/29/2025 1:20 PM EDT Telemedicine [facility] Endocrine, Diabetes, and Hypertension [address] [place] [address] Johnathan Lange MD [address] [place] [address] Endocrinology, Diabetes and Hypertension, [facility] [place] [address] [email or web address] 07/03/2025 12:40 PM EST Appointment [facility] MR Imaging, [address] [place] [address] Chance De PA-C [address] [place] [address] [email or web address]. KAROL 07/03/2025 1:30 PM EST Office Visit [facility] Department of Neurosurgery [address] [place] [address] Chance De PA-C [address] [place] [address] [email or web address] 07/17/2025 1:00 PM EST Evaluation [facility] [address] [place] [address] Meghan Duarte, AuD [address] [place] [address] [email or web address] 07/17/2025 1:45 PM EST [facility] [address] [place] [address] Meghan Duarte, AuD [address] [place] [address] [email or web address] documented as of this encounter Visit Diagnoses Not on filedocumented in this encounter Additional Health Concerns Assessment Noted Time PHQ-2 Depression Total Score: 0 07/01/20 21 1:15 PM EST documented as of this encounter Care Teams House Officer Relationship Specialty Start Date End Date Iris Serna MD [address] [place] [address] PCP - General Family Medicine 04/26/20 documented as of this encounter Additional Source Comments The information contained in this document represents components of the legal health record. It is not the complete legal health record.[facility]
--- OUTSIDE RECORDS SUMMARY | 2024-11-23 10:40 | XMS_ITS | Clinical Summary ---
Author Organization [facility] Address [address] [facility] [address] [place] [phone] Phone Care Team Providers Care Bore Mill Operator Name Role Phone Iris Serna MD Primary Care Provider [phone] Allergies No known active allergies Medications Medication Sig Dispensed Refills Start Date End Date Status multivitamins capsule Take 1 capsule by mouth daily. Active estradiol (ESTRACE) 0.01 % (0.1 mg/gram) vaginal cream Place 2 g vaginally 3 (three) times a week. Active calcium carbonate 500 mg (200 mg elemental) chewable tabletIndications:h ypocalcemia prevention Take 1 tablet by mouth daily. Indications: prevention of a low amount of calcium in the blood Active methIMAzole (TAPAZOLE) 5 MG tablet Take 1.5 tablets (7.5 mg total) by mouth daily. 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/11/2020 Graves disease 10/28/2016 GERD (gastroesophageal reflux disease) 7 Encounters Date Type Department Care Team Description 10/24/2024 1:00 PM EST Telemedicine [facility] Endocrine, Diabetes, and Hypertension [address] [address] Johnathan Lange MD Graves disease (Primary Dx) 10/20/2024 11:07 AM EST - 10/20/2024 11:59 PM EST Hospital Encounter [facility] [address] [place] [address] Johnathan Lange MD Discharge Disposition: Home or Self Care 10/08/2024 7:24 AM EST - 10/08/2024 11:59 PM EST Hospital Encounter [address] [place] [address] Marcia Romero MD, RACHID Discharge Disposition: Home or Self Care 09/28/2024 11:30 AM EST Office Visit [facility] Pain Management [address] [address] Marcia Romero MD, RACHID Lumbar radiculopathy (Primary Dx); Meralgia paresthetica, unspecified laterality; Neuralgia; Lumbar radicular pain; Spinal stenosis, lumbar region, without neurogenic claudication; Lumbar radiculitis 09/28/2024 Procedure Pass [address] [place] [address] 09/14/2024 Orders Only [facility] Department of Neurosurgery [address] [place] [address] Marylou Owen Vestibular schwannoma (Primary Dx) 09/06/2024 8:40 AM EST Office Visit [facility] Pain Management [address] [address] Marcia Romero MD, RACHID Meralgia paresthetica, unspecified laterality (Primary Dx); Other chronic pain 09/05/2024 Orders Only [facility] Pain Management [address] [place] [id number] Marcia Romero MD, RACHID Other chronic pain (Primary Dx) 09/05/2024 Orders Only [facility] Pain Management [address] [address] Sadie Alegria from Last 3 Months Family History Medical History Relation Comments Vaginal cancer Mother Varicose veins Mother Varicose veins Sister Bleeding Disorder Neg Hx Relation Status Comments Mother Alive Sister Social History Tobacco Use Types Packs/Day Years Used Date Smoking Tobacco: Never Smokeless Tobacco: Never Tobacco Cessation:Counseling Given: Not Answered Alcohol Use Standard Drinks/Week Comments Yes 1 [...] Orientation Straight 07/09/2020 6: 01 AM EST Last Filed Vital Signs Vital Sign Reading Time Taken Comments Blood Pressure 151/65 09/06/2024 8:36 AM EST Pulse 68 09/06/2024 8:36 AM EST Temperature 36.1 ??C (97 ??F) 09/06/2024 8:36 AM EST Respiratory Rate 16 07/06/2023 12:31 PM EST Oxygen Saturation 100% 09/06/2024 8:36 AM EST Inhaled Oxygen Concentration 20.8% 06/07/2021 1 1:25 AM EDT Weight 83.9 kg (185 lb) 10/04/2024 6:29 PM EST Height 160 cm (5' 3 ) 10/04/2024 6:29 PM EST Body Mass Index 32.77 10/04/2024 6:29 PM EST Plan of Treatment Upcoming Encounters Date Type Department Care Team (Late st Contact Info) Description 09/14/2024 Procedure Pass [facility] MR Imaging, [place] [address] [place] [address] 05/29/2025 1:20 PM EDT Telemedicine [facility] Endocrine, Diabetes, and Hypertension [address] [place] [address] Johnathan Lange MD [address] [place] [address] Endocrinology, Diabetes and Hypertension, [address] [place] [address] [email or web address] 07/03/2025 12:40 PM EST Appointment [facility] MR Imaging, [place] [address] [place] [address] Chance De PA-C [address] [facility], Floor [address] [place], [place] [email or web address] 07/03/2025 1:30 PM EST Office Visit [facility] Department of Neurosurgery [address] [place] [address] Chance De PA-C [address], [address] [place] [address] [email or web address]. [email or web address] 07/17/2025 1:00 PM EST Evaluation [facility] [address] [place] [address] Meghan Duarte, AuD [address] [place] [address] [email or web address] 07/17/2025 1:45 PM EST Evaluation [facility] [address] [place] [address] Meghan Duarte, AuD [address] [place] [address] [email or web address] Health Maintenance Due Date Last Done Comments Adult Td,Tdap Booster 1960 LIPID PANEL 1960 HEPATITIS C SCREENING 1976 HIV ONE-TIME SCREENING (18-65 YEARS) 1976 MAMMOGRAM 1998 COLOGUARD 11/28/2003 COLONOSCOPY 11/28/2003 COLORECTAL CANCER SCREENING 11/28/2003 FIT TEST 11/28/2003 FOBT 11/28/2003 SIGMOIDOSCOPY 11/28/2003 VIRTUAL COLONOSCOPY 11/28/2003 PNEUMOCOCCAL VACCINES (50+ years) (1 of 1 - PCV) 2008 ZOSTER VACCINES (1 of 2) 2008 RSV VACCINE (1 - Risk 60-74 years 1-dose series) 2018 OSTEOPOROSIS SCREENING INITIAL (ONE-TIME) 11/28/2023 INFLUENZA VACCINE (#1) 2024 2, 06/11/2021, 06/19/2020, Additional history exists COVID-19 VACCINE ( season) 2024 06/15/2022, 06/11/2021, 10/12/2020, Additional history exists SCREENING FOR DIABETES 06/07/2024 06/07/2021 DEPRESSION SCREENING 10/21/2025 10/21/2024 SMOKING STATUS SCREENING (Once After 26 Yrs) Completed 09/08/2023 HEPATITIS A VACCINES Aged Out No long er eligible based on patient's age to complete this topic HIB VACCINES Aged Out No longer eligi ble based on patient's age to complete this topic MENINGOCOCCAL VACCINES (ACWY) Aged Out No longer eligible based on patient's age to complete this topic Medical Devices Implanted Type Area Brake Repairer Bus Device Identifier Shelf Expiration Date Model / Serial / Lot Coil Embolization 6mm 14cm .035in Lilly Soft Hamilton Synthetic Fiber Stretch - [id number] Implanted:Qty: 1 on 05/07/2020 by Kole Romeo MD at [facility] Coil Left: Ovary [employer] 06/10/2024 [id number] / / [id number] Description:Left Ovarian Vei n MRI SAFETY INFORMATION Nonclinical testing has demonstrated that single and multiple Lilly Embolization Coils and Microcoils are MR Conditional according to ASTM F2503. A patient with this device may be safely scanned after placement under the following conditions: ? ? Static magnetic field of 3.0 rick or 1.5 rick only ? ? Maximum magnetic field spatial gradient of 1700 gauss/cm (17 T/m)or less ? ? Maximum MR system reported, whole-bodyaveraged specific absorption rate (CHERYL) of = 2.0 W/kg (Normal Operating Mode) Under the scan conditions provided above, the Lilly Embolization Coils and Microcoils are not expected to result in a temperature rise of more than 3.0?? C after 15 minutes of continuous scanning. 07/01/2021 [facility] https://www.[email or web address]/data/resources/[id number].pd Coil Embolization 4mm 14cm .035in Lilly Soft Hamilton Synthetic Fiber Stretch - [id number] Implanted:Qty: 1 on 05/07/2020 by Kole Romeo MD at [facility] Coil Right: Vein [employer] 06/22/2024 [id number] / / [id number] Description:RT OVARIAN VEIN MRI SAFETY INFORMATION Nonclinical testing has demonstrated that single and multiple Lilly Embolization Coils and Microcoils are MR Conditional according to ASTM F2503. A patient with this device may be safely scanned after placement under the following conditions: ? ? Static magnetic field of 3.0 rick or 1.5 rick only ? ? Maximum magnetic field spatial gradient of 1700 gauss/cm (17 T/m)or less ? ? Maximum MR system reported, whole-bodyaveraged specific absorption rate (CHERYL) of= 2.0 W/kg (Normal Operating Mode) Under the scan conditions provided above, the Lilly Embolization Coils and Microcoils are not expected to result in a temperature rise of more than 3.0?? C after 15 minutes of continuous scanning. 07/01/2021 [facility]://www.[employer]/data/resources/[id number].pd Coil Embolization 4mm 14cm .035in Lilly Soft Hamilton Synthetic Fiber Stretch - [id number] Implanted:Qty: 1 on 05/07/2020 by Kole Romeo MD at [facility] Coil Right: Vein [employer] 06/22/2024 [id number] / / [id number] Description:RT OVARIAN VEIN MRI SAFETY INFORMATION Nonclinical testing has demonstrated that single and multiple Lilly Embolization Coils and Microcoils are MR Conditional according to ASTM F2503. A patient with this device may be safely scanned after placement under the following conditions: ? ? Static magnetic field of 3.0 rick or 1.5 rick only ? ? Maximum magnetic field spatial gradient of 1700 gauss/cm (17 T/m)or less ? ? Maximum MR system reported, whole-bodyaveraged specific absorption rate (CHERYL) of= 2.0 W/kg (Normal Operating Mode) Under the scan conditions provided above, the Lilly Embolization Coils and Microcoils are not expected to result in a temperature rise of more than 3.0?? C after 15 minutes of continuous scanning. 07/01/2021 [facility]://www.[employer]/data/resources/[id number]_[id number].pd Coil Embolization 4mm 14cm .035in Lilly Soft Hamilton Synthetic Fiber Stretch - [id number] Implanted:Qty: 1 on 05/07/2020 by Kole Romeo MD at [facility] Coil Right: Vein [employer] 06/22/2024 [id number] / / [id number] Description:RT OVARIAN VEIN MRI SAFETY INFORMATION Nonclinical testing has demonstrated that single and multiple Lilly Embolization Coils and Microcoils are MR Conditional according to ASTM F2503. A patient with this device may be safely scanned after placement under the following conditions: ? ? Static magnetic field of 3.0 rick or 1.5 rick only ? ? Maximum magnetic field spatial gradient of 1700 gauss/cm (17 T/m)or less ? ? Maximum MR system reported, whole-bodyaveraged specific absorption rate (CHERYL) of= 2.0 W/kg (Normal Operating Mode) Under the scan conditions provided above, the Lilly Embolization Coils and Microcoils are not expected to result in a temperature rise of more than 3.0?? C after 15 minutes of continuous scanning. 07/01/2021 [facility]://www.[employer]/data/resources/[id number].pd Coil Embolization 12mm 14cm .035in Lilly Soft Hamilton Synthetic Fiber Stretch - [id number] Implanted:Qty: 1 on 05/07/2020 by Kole Romeo MD at [facility] Coil Right: Vein [employer] 11/09/2024 [id number] / / [id number] Description:RT OVARIAN VEIN MRI SAFETY INFORMATION Nonclinical testing has demonstrated that single and multiple Lilly Embolization Coils and Microcoils are MR Conditional according to ASTM F2503. A patient with this device may be safely scanned after placement under the following conditions: ? ? Static magnetic field of 3.0 rick or 1.5 rick only ? ? Maximum magnetic field spatial gradient of 1700 gauss/cm (17 T/m)or less ? ? Maximum MR system reported, whole-bodyaveraged specific absorption rate (CHERYL) of= 2.0 W/kg (Normal Operating Mode) Under the scan conditions provided above, the Lilly Embolization Coils and Microcoils are not expected to result in a temperature rise of more than 3.0?? C after 15 minutes of continuous scanning. [facility]/01/2021 [facility]www.[employer]/data/resources/[id number].pd Coil Embolization 6mm 14cm .035in Lilly Soft Hamilton Synthetic Fiber Stretch - [id number] Implanted:Qty: 1 on 05/07/2020 by Kole Romeo MD at [facility] Coil Left: Ovary [employer] 06/10/2024 [id number] / / [id number] Description:Left Ovarian Vei n MRI SAFETY INFORMATION Nonclinical testing has demonstrated that single and multiple Lilly Embolization Coils and Microcoils are MR Conditional according to ASTM F2503. A patient with this device may be safely scanned after placement under the following conditions: ? ? Static magnetic field of 3.0 rick or 1.5 rick only ? ? Maximum magnetic field spatial gradient of 1700 gauss/cm (17 T/m)or less ? ? Maximum MR system reported, whole-bodyaveraged specific absorption rate (CHERYL) of = 2.0 W/kg (Normal Operating Mode) Under the scan conditions provided above, the Lilly Embolization Coils and Microcoils are not expected to result in a temperature rise of more than 3.0?? C after 15 minutes of continuous scanning. 07/01/2021 [facility] https://www.[employer]/data/resources/[id number].pd Coil Embolization 6mm 14cm .035in Lilly Soft Hamilton Synthetic Fiber Stretch - [id number] Implanted:Qty: 1 on 05/07/2020 by Kole Romeo MD at [facility] Coil Left: Ovary [employer] 06/10/2024 [id number] / / [id number] Description:Left Ovarian Vei n MRI SAFETY INFORMATION Nonclinical testing has demonstrated that single and multiple Lilly Embolization Coils and Microcoils are MR Conditional according to ASTM F2503. A patient with this device may be safely scanned after placement under the following conditions: ? ? Static magnetic field of 3.0 rick or 1.5 rick only ? ? Maximum magnetic field spatial gradient of 1700 gauss/cm (17 T/m)or less ? ? Maximum MR system reported, whole-bodyaveraged specific absorption rate (CHERYL) of = 2.0 W/kg (Normal Operating Mode) Under the scan conditions provided above, the Lilly Embolization Coils and Microcoils are not expected to result in a temperature rise of more than 3.0?? C after 15 minutes of continuous scanning. 07/01/2021 [facility] https://www.[employer]/data/resources/[id number].pd Coil Embolization 6mm 14cm .035in Lilly Soft Hamilton Synthetic Fiber Stretch - [id number] Implanted:Qty: 1 on 05/07/2020 by Kole Romeo MD at [facility] Coil Left: Ovary [employer] 06/10/2024 [id number] / / [id number] Description:Left Ovarian Vei n MRI SAFETY INFORMATION Nonclinical testing has demonstrated that single and multiple Lilly Embolization Coils and Microcoils are MR Conditional according to ASTM F2503. A patient with this device may be safely scanned after placement under the following conditions: ? ? Static magnetic field of 3.0 rick or 1.5 rick only ? ? Maximum magnetic field spatial gradient of 1700 gauss/cm (17 T/m)or less ? ? Maximum MR system reported, whole-bodyaveraged specific absorption rate (CHERYL) of = 2.0 W/kg (Normal Operating Mode) Under the scan conditions provided above, the Lilly Embolization Coils and Microcoils are not expected to result in a temperature rise of more than 3.0?? C after 15 minutes of continuous scanning. 07/01/2021 [facility] https://www.[employer]/data/resources/[id number].pd Coil Embolization 6mm 14cm .035in Lilly Soft Hamilton Synthetic Fiber Stretch - [id number] Implanted:Qty: 1 on 05/07/2020 by Kole Romeo MD at [facility] Coil Left: Ovary [employer] 06/10/2024 [id number] / / [id number] Description:Left Ovarian Vei n MRI SAFETY INFORMATION Nonclinical testing has demonstrated that single and multiple Lilly Embolization Coils and Microcoils are MR Conditional according to ASTM F2503. A patient with this device may be safely scanned after placement under the following conditions: ? ? Static magnetic field of 3.0 rick or 1.5 rick only ? ? Maximum magnetic field spatial gradient of 1700 gauss/cm (17 T/m)or less ? ? Maximum MR system reported, whole-bodyaveraged specific absorption rate (CHERYL) of = 2.0 W/kg (Normal Operating Mode) Under the scan conditions provided above, the Lilly Embolization Coils and Microcoils are not expected to result in a temperature rise of more than 3.0?? C after 15 minutes of continuous scanning. 07/01/2021 [facility] https://www.[employer]/data/resources/[id number].pd Coil Embolization 6mm 14cm .035in Lilly Soft Hamilton Synthetic Fiber Stretch - [id number] Implanted:Qty: 1 on 05/07/2020 by Kole Romeo MD at [facility] Coil Left: Ovary [employer] 06/10/2024 [id number] / / [id number] Description:Left Ovarian Vei n MRI SAFETY INFORMATION Nonclinical testing has demonstrated that single and multiple Lilly Embolization Coils and Microcoils are MR Conditional according to ASTM F2503. A patient with this device may be safely scanned after placement under the following conditions: ? ? Static magnetic field of 3.0 rick or 1.5 rick only ? ? Maximum magnetic field spatial gradient of 1700 gauss/cm (17 T/m)or less ? ? Maximum MR system reported, whole-bodyaveraged specific absorption rate (CHERYL) of = 2.0 W/kg (Normal Operating Mode) Under the scan conditions provided above, the Lilly Embolization Coils and Microcoils are not expected to result in a temperature rise of more than 3.0?? C after 15 minutes of continuous scanning. 07/01/2021 [facility] https://www.[employer]/data/resources/[id number].pd Coil Embolization 6mm 14cm .035in Lilly Soft Hamilton Synthetic Fiber Stretch - [id number] Implanted:Qty: 1 on 05/07/2020 by Kole Romeo MD at [facility] Coil Left: Ovary [employer] 06/10/2024 [id number] / / [id number] Description:Left Ovarian Vei n MRI SAFETY INFORMATION Nonclinical testing has demonstrated that single and multiple Lilly Embolization Coils and Microcoils are MR Conditional according to ASTM F2503. A patient with this device may be safely scanned after placement under the following conditions: ? ? Static magnetic field of 3.0 rick or 1.5 rick only ? ? Maximum magnetic field spatial gradient of 1700 gauss/cm (17 T/m)or less ? ? Maximum MR system reported, whole-bodyaveraged specific absorption rate (CHERYL) of = 2.0 W/kg (Normal Operating Mode) Under the scan conditions provided above, the Lilly Embolization Coils and Microcoils are not expected to result in a temperature rise of more than 3.0?? C after 15 minutes of continuous scanning. 07/01/2021 [facility] https://www.[employer]/data/resources/[id number].pd Coil Embolization 6mm 14cm .035in Lilly Soft Hamilton Synthetic Fiber Stretch - [id number] Implanted:Qty: 1 on 05/07/2020 by Kole Romeo MD at [facility] Coil Left: Ovary [employer] 06/17/2024 [id number] / / [id number] Description:Left Ovarian Vei n MRI SAFETY INFORMATION Nonclinical testing has demonstrated that single and multiple Lilly Embolization Coils and Microcoils are MR Conditional according to ASTM F2503. A patient with this device may be safely scanned after placement under the following conditions: ? ? Static magnetic field of 3.0 rick or 1.5 rick only ? ? Maximum magnetic field spatial gradient of 1700 gauss/cm (17 T/m)or less ? ? Maximum MR system reported, whole-bodyaveraged specific absorption rate (CHERYL) of = 2.0 W/kg (Normal Operating Mode) Under the scan conditions provided above, the Lilly Embolization Coils and Microcoils are not expected to result in a temperature rise of more than 3.0?? C after 15 minutes of continuous scanning. 07/01/2021 [facility] https://www.[employer]/data/resources/[id number].pd Coil Embolization 12mm 14cm .035in Lilly Soft Hamilton Synthetic Fiber Stretch - [id number] Implanted:Qty: 1 on 05/07/2020 by Kole Romeo MD at [facility] Coil Left: Ovary [employer] 11/09/2024 [id number] / / [id number] Description:Left Ovarian Vei n MRI SAFETY INFORMATION Nonclinical testing has demonstrated that single and multiple Lilly Embolization Coils and Microcoils are MR Conditional according to ASTM F2503. A patient with this device may be safely scanned after placement under the following conditions: ? ? Static magnetic field of 3.0 rick or 1.5 rick only ? ? Maximum magnetic field spatial gradient of 1700 gauss/cm (17 T/m)or less ? ? Maximum MR system reported, whole-bodyaveraged specific absorption rate (CHERYL) of = 2.0 W/kg (Normal Operating Mode) Under the scan conditions provided above, the Lilly Embolization Coils and Microcoils are not expected to result in a temperature rise of more than 3.0?? C after 15 minutes of continuous scanning. 07/01/2021 [facility] https://www.[employer]/data/resources/[id number].pd Coil Embolization 8mm 14cm .035in Lilly Soft Hamilton Synthetic Fiber Stretch - [id number] Implanted:Qty: 1 on 05/07/2020 by Kole Romeo MD at [facility] NODATA Left: Ovary [employer] 06/15/2024 [id number] / / [id number] Description:Left Ovarian Vei n MRI SAFETY INFORMATION Nonclinical testing has demonstrated that single and multiple Lilly Embolization Coils and Microcoils are MR Conditional according to ASTM F2503. A patient with this device may be safely scanned after placement under the following conditions: ? ? Static magnetic field of 3.0 rick or 1.5 rick only ? ? Maximum magnetic field spatial gradient of 1700 gauss/cm (17 T/m)or less ? ? Maximum MR system reported, whole-bodyaveraged specific absorption rate (CHERYL) of = 2.0 W/kg (Normal Operating Mode) Under the scan conditions provided above, the Lilly Embolization Coils and Microcoils are not expected to result in a temperature rise of more than 3.0?? C after 15 minutes of continuous scanning. 07/01/2021 [facility] https://www.[employer]/data/resources/[id number].pd Coil Embolization 8mm 14cm .035in Lilly Soft Hamilton Synthetic Fiber Stretch - [id number] Implanted:Qty: 1 on 05/07/2020 by Kole Romeo MD at [facility] Left: Ovary [employer] 06/30/2024 [id number] / / [id number] Description:Left Ovarian Vei n MRI SAFETY INFORMATION Nonclinical testing has demonstrated that single and multiple Lilly Embolization Coils and Microcoils are MR Conditional according to ASTM F2503. A patient with this device may be safely scanned after placement under the following conditions: ? ? Static magnetic field of 3.0 rick or 1.5 rick only ? ? Maximum magnetic field spatial gradient of 1700 gauss/cm (17 T/m)or less ? ? Maximum MR system reported, whole-bodyaveraged specific absorption rate (CHERYL) of = 2.0 W/kg (Normal Operating Mode) Under the scan conditions provided above, the Lilly Embolization Coils and Microcoils are not expected to result in a temperature rise of more than 3.0?? C after 15 minutes of continuous scanning. 07/01/2021 [facility] https://www.[employer]/data/resources/[id number].pd Coil Embolization 8mm 14cm .035in Lilly Soft Hamilton Synthetic Fiber Stretch - [id number] Implanted:Qty: 1 on 05/07/2020 by Kole Romeo MD at [facility] Right: Vein [employer] 10/05/2024 [id number] / / [id number] Description:RT OVArian vein MRI SAFETY INFORMATION Nonclinical testing has demonstrated that single and multiple Lilly Embolization Coils and Microcoils are MR Conditional according to ASTM F2503. A patient with this device may be safely scanned after placement under the following conditions: ? ? Static magnetic field of 3.0 rick or 1.5 rick only ? ? Maximum magnetic field spatial gradient of 1700 gauss/cm (17 T/m)or less ? ? Maximum MR system reported, whole-bodyaveraged specific absorption rate (CHERYL) of= 2.0 W/kg (Normal Operating Mode) Under the scan conditions provided above, the Lilly Embolization Coils and Microcoils are not expected to result in a temperature rise of more than 3.0?? C after 15 minutes of continuous scanning. [facility]21 [facility]www.[employer]/data/resources/[id number].pd Coil Embolization 8mm 14cm .035in Lilly Soft Hamilton Synthetic Fiber Stretch - [id number] Implanted:Qty: 1 on 05/07/2020 by Kole Romeo MD at [facility] [employer] Right: Vein [employer] 10/05/2024 [id number] / / [id number] Description:RT OVARIAN VEIN MRI SAFETY INFORMATION Nonclinical testing has demonstrated that single and multiple Lilly Embolization Coils and Microcoils are MR Conditional according to ASTM F2503. A patient with this device may be safely scanned after placement under the following conditions: ? ? Static magnetic field of 3.0 rick or 1.5 rick only ? ? Maximum magnetic field spatial gradient of 1700 gauss/cm (17 T/m)or less ? ? Maximum MR system reported, whole-bodyaveraged specific absorption rate (CHERYL) of= 2.0 W/kg (Normal Operating Mode) Under the scan conditions provided above, the Lilly Embolization Coils and Microcoils are not expected to result in a temperature rise of more than 3.0?? C after 15 minutes of continuous scanning. 07/01/2021 [id number] Coil Embolization 8mm 14cm .035in Lilly Soft Hamilton Synthetic Fiber Stretch - [id number] Implanted:Qty: 1 on 05/07/2020 by Kole Romeo MD at [facility] Right: Vein [employer] 10/05/2024 [id number] / / [id number] Description:RT OVARIAN VEIN MRI SAFETY INFORMATION Nonclinical testing has demonstrated that single and multiple Lilly Embolization Coils and Microcoils are MR Conditional according to ASTM F2503. A patient with this device may be safely scanned after placement under the following conditions: ? ? Static magnetic field of 3.0 rick or 1.5 rick only ? ? Maximum magnetic field spatial gradient of 1700 gauss/cm (17 T/m)or less ? ? Maximum MR system reported, whole-bodyaveraged specific absorption rate (CHERYL) of= 2.0 W/kg (Normal Operating Mode) Under the scan conditions provided above, the Lilly Embolization Coils and Microcoils are not expected to result in a temperature rise of more than 3.0?? C after 15 minutes of continuous scanning. [facility]21 [id number] Kit Graft 10ml Bone Void Filler Cement Injectable Calcium Phosphate Liquid Powder Bowl [place] Syringe Hydroset - [id number] Implanted:Qty: 1 on 07/11/2020 by Christiano Clifford MD, PhD, MPH at [facility] Right: Cranial [employer]ICE [employer] 10/06/2021 [id number] / / [id number] Mesh Plate .4mm Cranial Matrixneuro Titanium Contourable Malleable Temporal - [id number] Implanted:Qty: 2 on 07/11/2020 by Christiano Clifford MD, PhD, MPH at [facility] Cranial SYNTHES 04.503.0 57 / / Screw Bone 1.5x4mm Ti Self Drilling Matrixneuro - [id number] Implanted:Qty: 9 on 07/11/2020 by Christiano Clifford MD, PhD, MPH at [facility] STANDARD Cranial SYNTHES 04.503.1 04.01 / / Graft 12x4cm Tissue Thin Ready To Use Alloderm Regenerative Tissue Matrix Implantable - [id number] Implanted:Qty: 1 on 07/11/2020 by Christiano Clifford MD, PhD, MPH at [facility] Right: Cranial [employer] 04/24/2022 [id number] / / [id number] Graft Duragen Plus 3x3in Dural Regeneration Matrix Pk/5ea - [id number] Implanted:Qty: 1 on 07/11/2020 by Christiano Clifford MD, PhD, MPH at [facility] Right: Cranial [employer] 10/21/2022 [id number] / / [id number] Procedures Procedure Name Priority Date/Time Associated Diagnosis Comments TSH Routine 10/20/2024 11:07 AM EST Graves disease FREE T4 Routine 10/20/2024 11:07 AM EST Graves disease MRI LUMBAR SPINE (NEURO) WITHOUT CONTRAST Routine 10/08/2024 8:16 AM EST Lumbar radiculopathy FL FLUOROSCOPY Routine 09/06/2024 8:32 AM EST Other chronic pain from Last 3 Months Results * TSH (10/20/2024 11:07 AM EST) TSH 3.23 0.27 - 4.20 uIU/mL [facility] Blood 10/20/2024 11:0 7 AM EST 10/20/2024 11:10 AM EST Johnathan Lange MD LAB BLOOD ORDERABLES [address] [address] * Free T4 (10/20/2024 11:07 AM EST) FREE T4 1.3 0.9 - 1.7 ng/dL [facility] Blood 10/20/2024 11:0 7 AM EST 10/20/2024 11:10 AM EST Johnathan Lange MD LAB BLOOD ORDERABLES [address] [address] * MRI LUMBAR SPINE (NEURO) WITHOUT CONTRAST (10/08/2024 8:16 AM EST) Anatomical Region Laterality Modality L-spine Magnetic Resonan ce 10/11/2024 8:57 AM EST Impressions 10/11/2024 9:05 AM EST 1. ??Lumbar degenerative disc disease. The disc bulges at L4-5 and L5-S1 appears slightly worse than prior study. Narrative 10/11/2024 9:05 AM EST MRI LUMBAR SPINE (NEURO) WITHOUT CONTRAST Referring clinician's provided indication for this examination in Epic: * Lumbar radiculopathy, > 6 wks TECHNIQUE: MRI LUMBAR SPINE (NEURO) WITHOUT CONTRAST Multi-sequence, multi-planar MRI of the lumbar spine was performed without intravenous contrast. COMPARISON: MRI lumbar spine July 22, 2021 FINDINGS: LUMBAR SPINE: Alignment and Vertebrae: No lumbar compression fracture or spondylolisthesis. Marrow: No bone marrow replacing lesion. Discs and Endplates: There is a small amount of marrow edema at L2-3, L3-4, and L4-5 related to degenerative endplate change. There bilateral facet joint effusions at L5-S1. There is moderate intervertebral disc at loss L3-4. There is mild disc height loss at L2-3, L4-5, and L5-S1. Conus: The conus terminates at the L1-2 level the conus is normal in signal intensity. Soft Tissues: Normal. No prevertebral edema. Other Findings: None. Findings by level: T12-L1: No spinal canal or neural foraminal narrowing. L1-L2: No spinal canal or neural foraminal narrowing L2-L3: There is mild spinal canal narrowing due to disc bulge and facet arthropathy. No neural foraminal narrowing. L3-L4: There is moderate spinal canal narrowing due to disc bulge and facet arthropathy. There is mild bilateral neural foraminal narrowing. L4-L5: There is bilateral subarticular and moderate central spinal canal narrowing due to disc bulge and facet arthropathy slightly worse from prior study. There is moderate bilateral neural foraminal narrowing. L5-S1: There is left subarticular and mild central spinal canal narrowing due to disc bulge and facet arthropathy slightly worse from the prior study. There is mild right and moderate left neural foraminal narrowing. Procedure Note Vishal Fischer DO - 10/11/2024 MRI LUMBAR SPINE (NEURO) WITHOUT CONTRAST Referring clinician's provided indication for this examination in Epic: *Lumbar radiculopathy, > 6 wks TECHNIQUE: MRI LUMBAR SPINE (NEURO) WITHOUT CONTRAST Multi-sequence, multi-planar MRI of the lumbar spine was performed withoutintravenous contrast. COMPARISON: MRI lumbar spine July 22, 2021 FINDINGS: LUMBAR SPINE: Alignment and Vertebrae: No lumbar compression fracture orspondylolisthesis. Marrow: No bone marrow replacing lesion. Discs and Endplates: There is a small amount of marrow edema at L2-3,L3-4, and L4-5 related to degenerative endplate change. There bilateralfacet joint effusions at L5-S1. There is moderate intervertebral disc atloss L3-4. There is mild disc height loss at L2-3, L4-5, and L5-S1. Conus: The conus terminates at the L1-2 level the conus is normal insignal intensity. Soft Tissues: Normal. No prevertebral edema. Other Findings: None. Findings by level: T12-L1: No spinal canal or neural foraminal narrowing. L1-L2: No spinal canal or neural foraminal narrowing L2-L3: There is mild spinal canal narrowing due to disc bulge and facetarthropathy. No neural foraminal narrowing. L3-L4: There is moderate spinal canal narrowing due to disc bulge andfacet arthropathy. There is mild bilateral neural foraminal narrowing. L4-L5: There is bilateral subarticular and moderate central spinal canalnarrowing due to disc bulge and facet arthropathy slightly worse fromprior study. There is moderate bilateral neural foraminal narrowing. L5-S1: There is left subarticular and mild central spinal canal narrowingdue to disc bulge and facet arthropathy slightly worse from the priorstudy. There is mild right and moderate left neural foraminal narrowing. IMPRESSION: 1. Lumbar degenerative disc disease. The disc bulges at L4-5 and L5-Q6fyrpqdf slightly worse than prior study. Marcia Romero MD, RACHID SWANSON MR XSPECIALTY * FL Fluoroscopy (09/06/2024 8:32 AM EST) Narrative DELMA - 09/06/2024 8:32 AM EST Fluoroscopy was provided during this procedure. RACHID Alfonso MD FL MISC DELMA from Last 3 Months Advance Directives For more information, please contact: [phone] (9AM - 5PM [facility], Thursday-Thursday) Documents on File Type Date Recorded Patient Chucking Machine Operator Expl anation Healthcare Proxy 07/25/2020 1:05 PM * Full Code (Latest Code Status on File) Date Activated Date Inactivated Comments 07/11/2020 7:15 PM Question Answer Comments Code Status Confirmed With: Patient * Full Code Date Activated Date Inactivated Comments 05/07/2020 2:14 PM 07/11/2020 7:46 AM Question Answer Comments Code Status Confirmed With: Patient Care Teams Bore Mill Operator Relationship Specialty Start Date End Date Iris Serna MD [address] [place] [id number] PCP - General Family Medicine 04/26/20 Additional Source Comments The information contained in this document represents components of the legal health record. It is not the complete legal health record.[facility]
--- OUTSIDE RECORDS SUMMARY | 2024-11-23 10:40 | XMS_ITS | Encounter Summary ---
Author Organization [facility] Address [address] [facility] [address] [place] [address] Phone Care Team Providers Care Camera Control Operator Name Role Phone Iris Serna MD Primary Care Provider [phone] Encounter Details Date Type Department Care Team (Late Contact Info) Description 07/04/2021 Procedure Pass [facility] Radiology [address] [place] [address] Social History Tobacco Use Types Packs/Day Years [...] (Late Contact Info) Description 09/14/2024 Procedure Pass [facility] MR Imaging, Pereyra [address] [place] [address] 05/29/2025 1:20 PM EDT Telemedicine [facility] Endocrine, Diabetes, and Hypertension [address] [place] [address] Johnathan Lange MD [address] [facility] Endocrinology, Diabetes and Hypertension, [address] [place] [address] [email or web address] 07/03/2025 12:40 PM EST Appointment [facility] MR Imaging, [place]reyra [address] [place] [address] Chance De PA-C [address] [place] [address] [email or web address]. [email or web address] 07/03/2025 1:30 PM EST Office Visit [facility] Department of Neurosurgery [address] [place] [address] Chance De PA-C [address] [place] [address] [email or web address]. KAROL 07/17/2025 1:00 PM EST Evaluation [facility] Multispecialty [address] [place] [address] Meghan Duarte, AuD [address] [place] [address] [email or web address] 07/17/2025 1:45 PM EST [facility] [address] [place] [address] Meghan Duarte, AuD [address] [place] [address] [email or web address] documented as of this encounter Visit Diagnoses Not on filedocumented in this encounter Additional Health Concerns Assessment Noted Time PHQ-2 Depression Total Score: 0 07/01/20 21 1:15 PM EST documented as of this encounter Care Teams Camera Control Operator Relationship Specialty Start Date End Date Iris Serna MD [address] [place] [id number] PCP - General Family Medicine 04/26/20 documented as of this encounter Additional Source Comments The information contained in this document represents components of the legal health record. It is not the complete legal health record.[facility]
--- OUTSIDE RECORDS SUMMARY | 2024-11-23 10:40 | XMS_ITS | Encounter Summary ---
Author Organization Located [facility] Address [address] [place] [phone] Phone Care Team Providers Care Mill Labor Supervisor Name Role Phone Derrick Donovan MD Primary Care Provider Iris Serna MD Primary Care Provider [phone] Encounter Details Date Type Department Care Team (Late st Contact Info) Description 10/28/2016 Ancillary Orders [facility] Endocrine, Diabetes, and Hypertension [address] [place] [address] Ronna Hancock [address] [facility] [place] [address] [email or web address] Thyroid nodule Social History Tobacco Use Types Packs/Day Years [...] st Contact Info) Description 09/14/2024 Procedure Pass [facility] MR Imaging, [place] [address] [place] [address] 05/29/2025 1:20 PM EDT Telemedicine [facility] Endocrine, Diabetes, and Hypertension [address] [place] [address] Johnathan Lange MD [address] [place] [address] Endocrinology, Diabetes and Hypertension, [address] [place] [address] [email or web address] 07/03/2025 12:40 PM EST Appointment [facility] MR Imaging, Pereyra [address] [place] [address] Chance De PA-C [address] [place] [address] [email or web address]. KAROL 07/03/2025 1:30 PM EST Office Visit [facility] Department of Neurosurgery [address] [place] [address] Chance De PA-C [address] [place] [address] [email or web address]. KAROL 07/17/2025 1:00 PM EST Evaluation [facility] Multispecialty [address] [place] [address] Meghan Duarte, AuD [address] [place] [address] [email or web address] 07/17/2025 1:45 PM EST [facility] [address] [place] [address] Meghan Duarte, AuD [address] [place] [address] [email or web address] documented as of this encounter Results * US Thyroid Gland (10/28/2016 11:26 AM EST) Anatomical Region Laterality Modality Neck, Head, Chest Ultrasound 10/28/2016 Narrative 10/28/2016 11:34 AM EST ??TESTS PERFORMED ?Thyroid/Neck Ultrasound (42709) ??INDICATIONS/REASONS FOR TESTS ?Thyroid mass ?FINDINGS ?Thyroid gland ?Size ?Right lobe: 4.4 x 1.7 x 1.6 cm ?Left lobe: 4.6 x 1.9 x 1.7 cm ?Isthmus thickness: 0.4 cm ?Diffusely heterogeneous ?Lymph nodes ?Likely benign ?Left 10 x 9 x 4 mm, mid IJ chain ?IMPRESSION: ?Diffusely heterogeneous thyroid gland without definite ? discrete nodule Procedure Note Feliciano Georges MD - 10/28/2016 TESTS PERFORMED Thyroid/Neck Ultrasound (16955) INDICATIONS/REASONS FOR TESTS Thyroid mass FINDINGS Thyroid gland Size Right lobe: 4.4 x 1.7 x 1.6 cm Left lobe: 4.6 x 1.9 x 1.7 cm Isthmus thickness: 0.4 cm Diffusely heterogeneous Lymph nodes Likely benign Left 10 x 9 x 4 mm, mid IJ chain IMPRESSION: Diffusely heterogeneous thyroid gland without definite discrete nodule Johnathan Lange MD [facility] documented in this encounter Visit Diagnoses Diagnosis Thyroid nodule Nontoxic uninodular goiter Thyroid nodule Nontoxic uninodular goiter documented in this encounter Care Teams Mill Labor Supervisor Relationship Specialty Start Date End Date Derrick Donovan MD [address] [place] [address] PCP - General 02/21/14 04/25/20 Iris Serna MD [address] [place] [phone] PCP - General Family Medicine 04/26/20 documented as of this encounter Additional Source Comments The information contained in this document represents components of the legal health record. It is not the complete legal health record.[facility]
--- OUTSIDE RECORDS SUMMARY | 2024-11-23 10:41 | XMS_ITS | Clinical Summary ---
Author Organization [facility] Address [address] [place] [phone] Phone Care Team Providers Care Photography Editor Name Role Phone Iris Serna MD Primary Care Provider [phone] Allergies No known active allergies Medications methIMAzole (TAPAZOLE) 5 mg tabletIndications :GRAVE'S Take 1.5 tablets (7.5 mg total) by mouth 1 (one) time each day. Active oxyBUTYnin (DITROPAN) 5 mg tabletIndications :increased urinary frequency Take 1 tablet (5 mg total) by mouth 1 (one) time each day. Active multivitamin tablet Take 1 tablet by mouth 1 (one) time each day. Active cetirizine (ZyrTEC) 10 mg tablet Take 1 tablet (10 mg total) by mouth 1 (one) time each day if needed for allergies. Active cefTRIAXone 2 g in sterile water 20 mL syringe Infuse 2 g into a venous catheter 1 (one) time each day at the same time. 10/29/19 25 025 Active vancomycin 1,250 mg in sodium chloride 0.9 % 250 mL IVPB Infuse 1,250 mg into a venous catheter every 12 (twelve) hours. 10/29/19 25 025 Active senna-docusate (PERICOLACE) 8.6-50 mg per tablet Take 1 tablet by mouth 2 (two) times a day. Take in conjunction with narcotic pain medication to prevent constipation. 30 tablet 5 1:29 PM EST 10/29/19 25 026 Active methocarbamoL (ROBAXIN) 750 mg tablet Take 1 tablet (750 mg total) by mouth every 6 (six) hours if needed for muscle spasms for up to 10 days. 30 tablet 5 1:29 PM EST 10/29/19 25 Active aspirin 81 mg EC tablet Take 1 tablet (81 mg total) by mouth 2 (two) times a day. Take this medication until completion to prevent postoperative blood clots. 84 tablet 5 1:29 PM EST 10/29/19 25 026 Active HYDROmorphone (DILAUDID) 2 mg tabletIndications :Infection of prosthetic joint, initial encounter ([facility]) Take 1 tablet (2 mg total) by mouth every 4 (four) hours if needed for severe pain. Max Daily Amount: 12 mg 32 tablet 5 2:13 PM EST 10/29/19 25 Active meloxicam (MOBIC) 15 mg tablet Take 1 tablet (15 mg total) by mouth 1 (one) time each day. 15 each 4 12:03 PM EST 08/04/20 24 025 Discontin ued(Reord er) methocarbamoL (ROBAXIN) 750 mg tablet Take 1 tablet (750 mg total) by mouth every 6 (six) hours if needed for muscle spasms for up to 10 days. 40 tablet 4 12:03 PM EST 08/04/20 24 025 Discontin ued(Stop Taking at Discharge ) oxyCODONE (ROXICODONE) 5 mg immediate release tabletIndications :Primary osteoarthritis of left knee Take 1 tablet (5 mg total) by mouth every 4 (four) hours if needed for severe pain. Max Daily Amount: 30 mg 40 tablet 4 12:03 PM EST 08/04/20 24 025 Discontin ued(Reord er) senna-docusate (PERICOLACE) 8.6-50 mg per tablet Take 1 tablet by mouth 2 (two) times a day. Take while using narcotic pain medication to prevent constipation. 40 each 4 12:03 PM EST 08/04/20 24 025 Discontin ued(Reord er) oxyCODONE (ROXICODONE) 5 mg immediate release tabletIndications :Infection of prosthetic joint, initial encounter ([facility]) Take 1 tablet (5 mg total) by mouth every 4 (four) hours if needed for severe pain. Max Daily Amount: 30 mg 40 tablet 10/29/19 025 Discontin ued(Stop Taking at Discharge ) pantoprazole (PROTONIX) 40 mg EC tablet Take 1 tablet (40 mg total) by mouth 1 (one) time each day before breakfast for 15 days. Do not crush, chew, or split. 15 tablet 1:29 PM EST 10/29/19 025 meloxicam (MOBIC) 15 mg tablet Take 1 tablet (15 mg total) by mouth 1 (one) time each day for 15 days. 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 Osteoarthritis of left knee 08/03/2024 Encounters Date Type Department Care Team Description 11/15/2024 1:00 PM EDT Office Visit Infectious Disease - [facility] [address] [place] [address] Nicolle Kelly MD Prosthetic joint infection, subsequent encounter (Primary Dx) 10/26/2024 10:14 AM EST Anesthesia Event [facility] OR [address] [place] [address] Ventura Isaacs MD Barnett, John T, MD 10/26/2024 10:00 AM EST - 10/26/2024 12:15 PM EST Surgery [facility] OR [address] [place] [address] Pako Aguilar MD INCISION DRAINAGE LEFT KNEE, POLY EXCHANGE 10/24/2024 12:36 PM EST - 10/28/2024 2:07 PM EST Hospital Encounter [facility] [id number] [place] [address] Juan Miguel Mosqueda MD Murray, Paul B, MD Infection of prosthetic joint, initial encounter ([facility]) (Primary Dx); Leg swelling; Acute pain of left knee; Fever, unspecified fever cause; 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 Discharge Disposition: Home-Health Care c from Last 3 Months Surgical History Surgery Date Site/Laterality Comments TONSILLECTOMY KNEE ARTHROSCOPY Left MENISCUS BREAST BIOPSY Right NEUROMA SURGERY Right ACOUSTIC NEUROMA REMOVED TUMOR EXCISION Left LEFT AXILLA- BENIGN OOPHORECTOMY Left SKIN BIOPSY Left MELANOMA REMOVED FROM ARM ERCP IR PELVIC ANGIOGRAPHY COILS PLACED FOR PELVIC VEIN CONGESTION Medical History Medical History Date Comments Graves disease Urinary frequency Hearing loss RIGHT EAR TOTAL LOSS D/T NEUROMA Melanoma ([facility]) BIENVENIDO [place] PONV (postoperative nausea and vomiting) Pancreatitis 1980S[place], RESOL [place] TB (tuberculosis), [place] 1961 [place] History of blood transfusion POS T OP TONSILS AND ADENOID SURG Social History Tobacco Use Types Packs/Day Years Used Date Smoking Tobacco: Never Smokeless Tobacco: Never Tobacco Cessation:Counseling Given: Not Answered Alcohol Use Standard Drinks/Week Comments Yes 2 (1 standard drink = 0.6 oz pur e alcohol) last alcohol a few weeks ago Housing Instability Answer Date Recorde d Are you worried that in the next 2 months you may not have stable housing? No 08/03/2024 Food Access & Nutrition Answer Date Rec orded Do you have access to a vari ety of food including fruits and vegetables? No 08/03/2024 Health Literacy Answer Date Recorded How often do you need to hav e someone help you when you read instructions, pamphlets, or other written material from your doctor or pharmacy? Never 08/03/2024 Caregiver: How often do you need to have someone help you when you read instructions, pamphlets, or other written material from your doctor or pharmacy? Not on file 08/03/2024 Financial Risk Answer Date Recorded How hard is it for you to pa y for the very basics like food, housing, medical care, and air conditioning / heating? Patient declined 08/03/2024 Transportation Answer Date Recorded Has the lack of transportati on kept you from meetings, work, or from getting things needed for daily living? No Has the lack of transportati on kept you from medical appointments or from getting medications? No 08/03/2024 Social Isolation Answer Date Recorded How often do you feel lonely or isolated from th ose around you? Never 08/03/2024 Food Risk Answer Date Recorded Within the past 12 months we worried whether our food would run out before we got money to buy more. Never true 08/03/2024 Within the past 12 months th e food we bought just didn't last and we didn't have money to get more. Never true 08/03/2024 Dependent Care Answer Date Recorded Do you need help finding or paying for care for your loved ones. For example, child adolescent psychiatrist or elderly care for an older adult? No 08/03/2024 Education Answer Date Recorded Do you think completing more education or training, like finishing a GED, going to college, or learning a trade, would be helpful for you? N/A 08/03/2024 Employment and Income Answer Date Recor ded During the last four weeks, have you been actively looking for work? No 08/03/2024 Living Situation Answer Date Recorded What is your living situation? 1 10/04/2023 Interpersonal Safety Answer Date Record ed Physical Abuse 10/25/2024 Verbal Abuse 10/25/2024 Comments No Sex and Gender Information Value Date Recorded Sex Assigned at Female 07/27/2024 10:41 AM EST Legal Sex Female 8:55 AM EST Gender Identity Female 07/27/2024 10:41 AM EST Sexual Orientation Straight 07/27/2024 10 :41 AM EST Obstetrics History Last Filed Vital Signs Vital Sign Reading Time Taken Comments Blood Pressure 119/75 11/15/2024 1:00 PM EDT Pulse 64 11/15/2024 1:00 PM EDT Temperature 36.4 ??C (97.5 ??F) 11/15/2024 1:00 PM ED T Respiratory Rate 16 10/28/2024 7:57 AM EST Oxygen Saturation 97% 11/15/2024 1:00 PM EDT Inhaled Oxygen Concentration - - Weight 86.2 kg (190 lb) 10/24/2024 12:25 PM EST Height 160 cm (5' 2.99 ) 11/15/2024 1:00 PM EDT Body Mass Index 33.66 10/24/2024 12:25 PM EST Plan of Treatment Upcoming Encounters Date Type Department Care Team (Late st Contact Info) Description 12/21/2024 11:00 AM EDT Office Visit Infectious Disease - [facility] [address] [place] [address] Nicolle Kelly MD [address] [place] [address] Health Maintenance Due Date Last Done Comments Breast Cancer Screening 1960 Cervical Cancer Screening: P ap Smear 11/28/1979 Pneumococcal Vaccine: 50+ Years (1 of 1 - PCV) 2008 Zoster Vaccines (1 of 2) 2008 RSV Immunization Adult Patients (1 - Risk 60-74 years 1-dose series) 2018 COVID-19 Vaccine (3 - Pfizer risk series) 11/09/2020 10/12/2020, 09/21/2020 Influenza Vaccine (#1) 2024 09/29/2018 Colorectal Cancer Screening: Colonoscopy 07/18/2024 Depression Screening 07/18/2024 Hepatitis C Screening 07/18/2024 Osteoporosis Screening (Bone Density Screening) 07/18/2024 Social Influencers of Health Screening 08/03/2025 08/03/2024 Falls Risk Assessment 10/27/2025 10/27/2024 DTaP,Tdap,and Td Vaccines (2 - Td or Tdap) 07/04/2029 07/04/2019 HIB Vaccines Aged Out No longer eligi ble based on patient's age to complete this topic HPV Vaccines Aged Out No longer eligi ble based on patient's age to complete this topic Hepatitis A Vaccines Aged Out No long er eligible based on patient's age to complete this topic Hepatitis B Vaccines Aged Out No long er eligible based on patient's age to complete this topic IPV Vaccines Aged Out No longer eligi ble based on patient's age to complete this topic MMR Vaccines Aged Out No longer eligi ble based on patient's age to complete this topic Meningococcal ACWY Vaccine Aged Out N o longer eligible based on patient's age to complete this topic Meningococcal B Vacine Aged Out No lo nger eligible based on patient's age to complete this topic Pneumococcal Vaccine: Pediatrics (0 to 5 Years) and At-Risk Patients (6 to 64 Years) Aged Out No longer eligible b ased on patient's age to complete this topic RSV Immunization Patients Under 20 months Aged Out No longer eligible b ased on patient's age to complete this topic Varicella Vaccines Aged Out No longer eligible based on patient's age to complete this topic Medical Devices Implanted Type Area Line Haul Owner Operator Device Identifier Shelf Expiration Date Model / Serial / Lot Component Femoral Sz4 Triathlon Cruc Ret Charlotte Chrome Lt - [id number] Implanted:Qty : 1 on 08/03/2024 by Pako Aguilar MD at [facility] Joints Knee Left: Knee [employer] [id number] 03/12/2029 5517-F-40 1 / / [id number] Knee Bsplt Triathlon Ti Sz 4 - [id number] Implanted:Qty : 1 on 08/03/2024 by Pako Aguilar MD at [facility] Joints Knee Left: Knee [employer] [id number] 05/04/2029 5536-B-40 0 / / [id number] Knee Ptla Asym Tritanium 29x9 - [id number] Implanted:Qty : 1 on 08/03/2024 by Pako Aguilar MD at [facility] Joints Knee Left: Knee [employer] [id number] 04/27/2029 5552-L-29 9 / / [id number] Knee Tib Insrt Brng Sz 4 9mm - [id number] Implanted:Qty : 1 on 10/26/2024 by Pako Aguilar MD at [facility] Joints Knee Left: Knee [employer] [id number] 05/17/2029 5531-G-40 9 / / [id number] Explanted Type Area Line Haul Owner Operator Device Identifier Shelf Expiration Date Model / Serial / Lot Knee Tib Insrt Brng Sz 4 9mm - [id number] Implanted:Qty : 1 on 08/03/2024 by Pako Aguilar MD at [facility] Explanted:Qty : 1 on 10/26/2024 by Pako Aguilar MD at [facility] Joints Knee Left: Knee [employer] [id number] 03/23/2029 5531-G-40 9 / / [id number] Procedures Procedure Name Priority Date/Time Associated Diagnosis Comments INSERT PICC LINE Routine 10/28/2024 11:2 5 AM EST CBC WITH AUTO DIFFERENTIAL Routine 10/28/2024 5:29 AM EST CBC AND DIFFERENTIAL Routine 10/28/2024 5:29 AM EST BASIC METABOLIC PANEL Routine 10/28/2024 5:29 AM EST VANCOMYCIN, TROUGH Timed 10/28/2024 5: 29 AM EST CBC WITH AUTO DIFFERENTIAL Routine 10/27/2024 5:43 AM EST CBC AND DIFFERENTIAL Routine 10/27/2024 5:43 AM EST MAGNESIUM Routine 10/27/2024 5:43 AM EST BASIC METABOLIC PANEL Routine 10/27/2024 5:43 AM EST TH AN LMA(NO CHARGE) Routine 10/26/2024 10:35 AM EST CULTURE TISSUE WITH GRAM STAIN Routine 10/26/2024 10:07 AM EST 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 CULTURE TISSUE WITH GRAM STAIN Routine 10/26/2024 10:07 AM EST 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 CULTURE TISSUE WITH GRAM STAIN Routine 10/26/2024 10:06 AM EST 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 CULTURE WOUND DEEP Routine 10/26/2024 10 :06 AM EST 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 CULTURE WOUND DEEP Routine 10/26/2024 10 :06 AM EST 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 CULTURE WOUND DEEP Routine 10/26/2024 10 :05 AM EST 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 INCISION DRAINAGE EXTREMITY LOWER 10/26/2024 9:59 AM EST MAGNESIUM Routine 10/26/2024 5:54 AM EST BASIC METABOLIC PANEL Routine 10/26/2024 5:54 AM EST COMPLETE BLOOD COUNT Routine 10/26/2024 5:54 AM EST MAGNESIUM Routine 10/25/2024 5:42 AM EST BASIC METABOLIC PANEL Routine 10/25/2024 5:42 AM EST COMPLETE BLOOD COUNT Routine 10/25/2024 5:42 AM EST ECG 12-LEAD Routine 10/24/2024 8:07 PM EST TYPE AND SCREEN Routine 10/24/2024 8:07 PM EST PROTHROMBIN TIME WITH INR Routine 10/24/2024 8:07 PM EST MCCARTHY URINE CULTURE TUBE STAT 10/24/2024 6:07 PM EST URINALYSIS WITH REFLEX MICROSCOPIC AND CULTURE STAT 10/24/2024 6:07 PM EST URINALYSIS WITH REFLEX MICROSCOPIC AND CULTURE STAT 10/24/2024 6:07 PM EST CULTURE URINE STAT 10/24/2024 6:07 PM EST XR CHEST 1 VIEW STAT 10/24/2024 5:54 PM EST RESPIRATORY VIRUS PANEL MOLECULAR STUDY STAT 10/24/2024 5:26 PM EST DIFFERENTIAL BODY FLUID Routine 10/24/2024 4:11 PM EST CELL COUNT WITH REFLEX DIFFERENTIAL, BODY FLUID Routine 10/24/2024 4:11 PM EST CRYSTAL IDENTIFICATION, BODY FLUID Routine 10/24/2024 4:11 PM EST CULTURE BODY FLUID WITH GRAM STAIN Routine 10/24/2024 4:11 PM EST XR KNEE 3 VIEWS LEFT STAT 10/24/2024 3:04 PM EST VAS US DUPLEX LOWER EXT VENOUS LEFT STAT 10/24/2024 2:05 PM EST Leg swelling LACTATE, WITH REFLEX STAT 10/24/2024 1:38 PM EST CBC WITH AUTO DIFFERENTIAL STAT 10/24/2024 1:38 PM EST SEDIMENTATION RATE STAT 10/24/2024 1: 38 PM EST C-REACTIVE PROTEIN STAT 10/24/2024 1: 38 PM EST BASIC METABOLIC PANEL STAT 10/24/2024 1:38 PM EST CBC AND DIFFERENTIAL STAT 10/24/2024 1:38 PM EST CULTURE BLOOD STAT 10/24/2024 1:38 PM EST CULTURE BLOOD STAT 10/24/2024 1:38 PM EST from Last 3 Months Results * Insert PICC line (10/28/2024 11:25 AM EST) Janessa Jara RN - 10/28/2024 11:25 AM EST Janessa Evans RN ? 10/28/2024 12:32 PM PICC Line Insertion Procedure Note Procedure: Insertion of #4 FR/18G PICC Indications: ??Penitentiary IV therapy Procedure Details Informed consent was obtained for the procedure. Maximum sterile technique was used including antiseptics, cap, gloves, gown, hand hygiene, mask, and sheet. Sedation: No #4 FR/18G PICC inserted to the R Basilic vein per hospital protocol. ?? Blood return: ??yes Findings: Catheter inserted to 36 cm, with 0 cm. Exposed. Mid upper arm circumference is 29 cm. ??There were no changes to vital signs. Catheter was flushed with 30 cc NS. Patient did tolerate procedure well. PICC placed with ultrasound guidance by Urbano Samson IV RN, per MD order. Per ECG guidance, PICC terminates in SVC. Miguelangel PHIPPS IV THERAPY ORDERABLES Edit ed Result - Final * (ABNORMAL) CBC auto differential (10/28/2024 5:29 AM EST) Only the most recent of3 resultswithin the time period is included. WBC 6.1 4.0 - 10.5 K/mcL LAB HEMETOLOGY METHOD 10/28/2024 5:54 AM [facility] RBC 3.58(L) 4.20 - 5.40 M/mcL LAB HEMETOLOGY METHOD 10/28/2024 5:54 AM [facility] Hemoglobin 10.6(L) 12.5 - 16.0 g/dL LAB HEMETOLOGY METHOD 10/28/2024 5:54 AM [facility] Hematocrit 31.0(L) 37.0 - 47.0 % LAB HEMETOLOGY METHOD 10/28/2024 5:54 AM [facility] MCV 86.7 78.0 - 100.0 FL LAB HEMETOLOGY METHOD 10/28/2024 5:54 AM EST [facility] MCH 29.7 25.0 - 33.0 pcg LAB HEMETOLOGY METHOD 10/28/2024 5:54 AM [facility] MCHC 34.3 32.0 - 36.0 g/dL LAB HEMETOLOGY METHOD 10/28/2024 5:54 AM [facility] RDW 12.4 12.1 - 16.2 % LAB HEMETOLOGY METHOD 10/28/2024 5:54 AM [facility] Platelets 263 150 - 450 K/mcL LAB HEMETOLOGY METHOD 10/28/2024 5:54 AM [facility] MPV 7.4 7.4 - 11.4 FL LAB HEMETOLOGY METHOD 10/28/2024 5:54 AM [facility] Neutrophils Relative 71.1 44.0 - 74.0 % LAB HEMETOLOGY METHOD 10/28/2024 5:54 AM [facility] Lymphocytes Relative 18.3(L) 20.0 - 48.0 % LAB HEMETOLOGY METHOD 10/28/2024 5:54 AM [facility] Monocytes Relative 7.7 2.0 - 12.0 % LAB HEMETOLOGY METHOD 10/28/2024 5:54 AM [facility] Eosinophils Relative 2.3 0.0 - 6.0 % LAB HEMETOLOGY METHOD 10/28/2024 5:54 AM [facility] Basophils Relative 0.6 0.0 - 2.0 % LAB HEMETOLOGY METHOD 10/28/2024 5:54 AM [facility] Neutrophils Absolute 4.30 1.80 - 7.80 K/mcL LAB HEMETOLOGY METHOD 10/28/2024 5:54 AM [facility] Lymphocytes Absolute 1.10 1.00 - 3.20 K/mcL LAB HEMETOLOGY METHOD 10/28/2024 5:54 AM [facility] Monocytes Absolute 0.50 0.00 - 0.80 K/mcL LAB HEMETOLOGY METHOD 10/28/2024 5:54 AM [facility] Eosinophils Absolute 0.10 0.00 - 0.50 K/mcL LAB HEMETOLOGY METHOD 10/28/2024 5:54 AM [facility] Basophils Absolute 0.00 0.00 - 0.20 K/mcL LAB HEMETOLOGY METHOD 10/28/2024 5:54 AM EST [facility] Blood Venous blood specimen / Unknown Venipuncture / Unknown 10/28/2024 5:29 AM EST 10/28/2024 5:35 AM EST Miguelangel PHIPPS LAB BLOOD ORDERABLES Final Result [facility] [address] [place] [address], [place] [phone] * Vancomycin, trough (10/28/2024 5:29 AM EST) Vancomycin Trough 13.1 10.0 - 20.0 mcg/mL LAB CHEMISTRY METHOD 10/28/2024 6:15 AM EST [facility] Blood Venous blood specimen / Unknown Venipuncture / Unknown 10/28/2024 5:29 AM EST 10/28/2024 5:35 AM EST Pako Aguilar MD LAB BLOOD ORDERABLES Final Resu lt [facility] [address] [place] [address], [place] [phone] * (ABNORMAL) Basic metabolic panel (10/28/2024 5:29 AM EST) Only the most recent of5 resultswithin the time period is included. Sodium 141 135 - 145 mmol/L LAB CHEMISTRY METHOD 10/28/2024 6:17 AM EST [facility] Potassium 4.1 3.5 - 5.1 mmol/L LAB CHEMISTRY METHOD 10/28/2024 6:17 AM EST [facility] Chloride 106 98 - 107 mmol/L LAB CHEMISTRY METHOD 10/28/2024 6:17 AM EST [facility] CO2 28 24 - 32 mmol/L LAB CHEMISTRY METHOD 10/28/2024 6:17 AM EST [facility] Anion Gap 7 5 - 14 LAB CHEMISTRY METHOD 10/28/2024 6:17 AM [facility] Glucose 110(H) 70 - 99 mg/dL LAB CHEMISTRY METHOD 10/28/2024 6:17 AM [facility] BUN 9 7 - 17 mg/dL LAB CHEMISTRY METHOD 10/28/2024 6:17 AM [facility] Creatinine 0.60 0.50 - 1.00 mg/dL LAB CHEMISTRY METHOD 10/28/2024 6:17 AM EST [facility] eGFR 100 >=60 mL/min/1. 73m2 LAB CHEMISTRY METHOD 10/28/2024 6:17 AM [facility] Comment:Calculation based on the??Chronic Kidney Disease Epidemiology Collaboration (CKD-EPI) equation refit??without adjustment for race. BUN/Creatinine Ratio 15.0 12.0 - 20.0 LAB CHEMISTRY METHOD 10/28/2024 6:17 AM [facility] Calcium 8.5 8.4 - 10.2 mg/dL LAB CHEMISTRY METHOD 10/28/2024 6:17 AM [facility] Blood Venous blood specimen / Unknown Venipuncture / Unknown 10/28/2024 5:29 AM EST 10/28/2024 5:35 AM EST us Chivo PHIPPS LAB BLOOD ORDERABLES Final Res ult [facility] [address] [place] [address], * Magnesium (10/27/2024 5:43 AM EST) Only the most recent of3 resultswithin the time period is included. Magnesium 1.8 1.7 - 2.8 mg/dL LAB CHEMISTRY METHOD 10/27/2024 6:41 AM EST [facility] Blood Venous blood specimen / Unknown Venipuncture / Unknown 10/27/2024 5:43 AM EST 10/27/2024 6:00 AM EST Chance Lea SENIOR PYTHON DEVELOPER LAB BLOOD ORDERABLES Final Re sult Performing Organization Address City/[facility]/ZIP Co de Phone Number [facility] [address] [place] [address], [place] [phone] * TH AN LMA(NO CHARGE) (10/26/2024 10:35 AM EST) Narrative Barbie Torres CRNA - 10/26/2024 10:35 AM EST Barbie Torres CRNA ? 10/26/2024 10:36 AM General Information and Staff Patient location during procedure: OR Performed: resident/WHEEL ASSEMBLER/CAA Performed by: Barbie Torres CRNA Authorized by: Ventura Isaacs MD ?? Intubation Urgency: elective Final Airway Details Number of attempts at approach: 1Final airway type: LMA Indications and Patient Condition Preoxygenated: yes Soft Tissue Damage: No Dentition Unchanged: Yes Patient position: neutral us Ventura Isaacs MD ANESTHESIA ORDERABLES Fin al Result * Culture tissue with gram stain (10/26/2024 10:07 AM EST) Only the most recent of3 resultswithin the time period is included. Culture, Tissue No Growth aerobically/a naerobically after 14 days incubation. 11/09/2024 8:00 AM EDT [facility] Gram Stain Result Many WBCs present 11/09/2024 8:00 AM EDT [facility] Gram Stain Result No organisms seen 11/09/2024 8:00 AM EDT [facility] Tissue Structure of left knee region / Unknown 10/26/2024 10:07 AM EST 10/26/2024 10:45 AM EST Pako Aguilar MD LAB MICROBIOLOGY - GENERAL ORDE RABARIELLA Final Result Performing Organization Address City/[facility]/ZIP Co de Phone Number [facility] [address] [place] [address], [place] [phone] * Culture wound deep (10/26/2024 10:06 AM EST) Only the most recent of3 resultswithin the time period is included. Culture, Wound No Growth aerobically/a naerobically after 14 days incubation. 11/09/2024 8:21 AM EDT [facility] Gram Stain Result Few WBCs present 11/09/2024 8:21 AM EDT [facility] Gram Stain Result No organisms seen 11/09/2024 8:21 AM EDT [facility] Swab Structure of left knee region / Unknown 10/26/2024 10:06 AM EST 10/26/2024 10:44 AM EST Comment:EXT: [id number] Pako Aguilar MD LAB MICROBIOLOGY - [facility] Final Result [facility] [address] [place] [address], [place] [phone] * (ABNORMAL) Complete blood count (10/26/2024 5:54 AM EST) Only the most recent of2 resultswithin the time period is included. WBC 6.1 4.0 - 10.5 K/mcL LAB HEMETOLOGY METHOD 10/26/2024 6:09 AM EST [facility] RBC 4.01(L) 4.20 - 5.40 M/mcL LAB HEMETOLOGY METHOD 10/26/2024 6:09 AM EST [facility] Hemoglobin 11.9(L) 12.5 - 16.0 g/dL LAB HEMETOLOGY METHOD 10/26/2024 6:09 AM EST [facility] Hematocrit 34.8(L) 37.0 - 47.0 % LAB HEMETOLOGY METHOD 10/26/2024 6:09 AM EST [facility] MCV 86.8 78.0 - 100.0 FL LAB HEMETOLOGY METHOD 10/26/2024 6:09 AM EST [facility] MCH 29.7 25.0 - 33.0 pcg LAB HEMETOLOGY METHOD 10/26/2024 6:09 AM EST [facility] MCHC 34.3 32.0 - 36.0 g/dL LAB HEMETOLOGY METHOD 10/26/2024 6:09 AM EST [facility] RDW 12.6 12.1 - 16.2 % LAB HEMETOLOGY METHOD 10/26/2024 6:09 AM EST [facility] Platelets 265 150 - 450 K/mcL LAB HEMETOLOGY METHOD 10/26/2024 6:09 AM EST [facility] MPV 8.0 7.4 - 11.4 FL LAB HEMETOLOGY METHOD 10/26/2024 6:09 AM EST [facility] Blood Venous blood specimen / Unknown Venipuncture / Unknown 10/26/2024 5:54 AM EST 10/26/2024 6:02 AM EST us [facility] LAB BLOOD ORDERABLES Final Res ult [facility] [address] [place] [address], * ECG 12 lead (10/24/2024 8:07 PM EST) Ventricular Rate ECG 80 BPM GEMUSE Atrial Rate 80 BPM GEMUSE P-R Interval 134 ms GEMUSE QRS Duration 76 ms GEMUSE Q-T Interval 376 ms GEMUSE QTc 433 ms GEMUSE P Wave [place] 47 degrees GEMUSE R [place] -3 degrees GEMUSE T [place] 25 degrees GEMUSE ECG Interpretation Normal sinus rhythm Poor R wave progression Abnormal ECG No previous ECGs available Confirmed by JAY ROSENTHAL ([id number]) on 10/25/2024 6:10:28 PM GEMUSE 10/24/2024 8:07 PM EST 10/25/2024 6:10 PM EST Chance Lea SENIOR PYTHON DEVELOPER ECG ORDERABLES Final Result Performing Organization Address [facility]/ZIP Co de Phone Number NAFISA * (ABNORMAL) Prothrombin time with INR (10/24/2024 8:07 PM EST) Protime 13.8(H) 10.5 - 13.3 sec LAB COAGULATION METHOD 10/24/2024 8:35 PM EST [facility] INR 1.2(H) 0.8 - 1.1 LAB COAGULATION METHOD 10/24/2024 8:35 PM EST [facility] Blood Venous blood specimen / Unknown Venipuncture / Unknown 10/24/2024 8:07 PM EST 10/24/2024 8:14 PM EST Narrative [facility] - 10/24/2024 8:35 PM EST Std. Therapy ?2.0-3.0 INR High Dose Therapy 3.0-4.5 INR Ranges may vary depending on clinical indications and protocol. [facility] LAB BLOOD ORDERABLES Final Res ult Performing Organization Address [facility] Co de Phone Number [facility] [address] [place] [address], [place] [phone] * Type and screen (10/24/2024 8:07 PM EST) ABO Group O 10/24/2024 9:01 PM EST [facility] Rh Type Positive 10/24/2024 9:01 PM EST [facility] Antibody Screen Negative 10/24/2024 9:01 PM EST [facility] Blood Venous blood specimen / Unknown Venipuncture / Unknown 10/24/2024 8:07 PM EST 10/24/2024 8:14 PM EST us [facility] BLOOD BANK TEST ORDERABLES Final Result [facility] [address] [place] [address], [place] [phone] * (ABNORMAL) Urinalysis with reflex microscopic and culture (10/24/2024 6:07 PM EST) Color, Urine Yellow Yellow, Colorless LAB URINALYSIS - AUTOMATED METHOD 10/24/2024 7:11 PM [facility] Clarity, Urine Hazy(A) Clear LAB URINALYSIS - AUTOMATED METHOD 10/24/2024 7:11 PM [facility] Specific [place] Urine 1.021 1.005 - 1.030 LAB URINALYSIS - AUTOMATED METHOD 10/24/2024 7:11 PM [facility] pH, Urine 5.0(A) 5.0 - 8.0 pH LAB URINALYSIS - AUTOMATED METHOD 10/24/2024 7:11 PM [facility] Leukocytes, Urine Small(A) Negative WBCs/mcL LAB URINALYSIS - AUTOMATED METHOD 10/24/2024 7:11 PM [facility] Nitrite, Urine Negative Negative LAB URINALYSIS - AUTOMATED METHOD 10/24/2024 7:11 PM [facility] Protein, Urine Negative Negative mg/dL LAB URINALYSIS - AUTOMATED METHOD 10/24/2024 7:11 PM [facility] Glucose, Urine Negative Negative mg/dL LAB URINALYSIS - AUTOMATED METHOD 10/24/2024 7:11 PM [facility] Ketones, Urine Negative Negative mg/dL LAB URINALYSIS - AUTOMATED METHOD 10/24/2024 7:11 PM [facility] Blood, Urine Negative Negative mg/dL LAB URINALYSIS - AUTOMATED METHOD 10/24/2024 7:11 PM [facility] RBC, Urine 1 0 - 3 /HPF LAB URINALYSIS - AUTOMATED METHOD 10/24/2024 7:11 PM [facility] WBC, Urine 6(H) 0 - 5 /HPF LAB URINALYSIS - AUTOMATED METHOD 10/24/2024 7:11 PM [facility] Squamous Epithelial, Urine 27(H) 0 - 5 /HPF LAB URINALYSIS - AUTOMATED METHOD 10/24/2024 7:11 PM [facility] Mucus, Urine Present(A) Not Present /HPF LAB URINALYSIS - AUTOMATED METHOD 10/24/2024 7:11 PM [facility] Urine Urine specimen obtained by clean catch procedure / Unknown Non-blood Collection / Unknown 10/24/2024 6:07 PM EST 10/24/2024 6:37 PM EST us Juan Miguel Mosqueda MD LAB URINE ORDERABLES Final Result Performing Organization Address City/[facility]/ZIP Co de Phone Number [facility] [address] [place] [address], [place] [phone] * Mccarthy urine culture tube (10/24/2024 6:07 PM EST) Extra Tube Hold for add-ons. 10/24/2024 8:01 PM EST [facility] Comment:Auto resulted. Urine Urine specimen obtained by clean catch procedure / Unknown Non-blood Collection / Unknown 10/24/2024 6:07 PM EST 10/24/2024 6:37 PM EST us Juan Miguel Mosqueda MD LAB URINE ORDERABLES Final Result [facility] [address] [place] [address], [place] [phone] * Culture urine (10/24/2024 6:07 PM EST) Culture, Urine Mixed urogenital jeffry, no uropathogens present. Suggest repeat specimen, if clinically indicated. 10/26/2024 8:22 AM EST [facility] Urine Urine specimen obtained by clean catch procedure / Unknown Non-blood Collection / Unknown 10/24/2024 6:07 PM EST 10/24/2024 7:11 PM EST Juan Miguel Mosqueda MD LAB MICROBIOLOGY - G ENERAL ORDERABLES Final Result [facility] [address] [place] [address], [place] [phone] * XR Chest 1 View (10/24/2024 5:54 PM EST) Anatomical Region Laterality Modality Body Radiographic Maria Esther ging 10/24/2024 6:34 PM EST Impressions 10/24/2024 6:35 PM EST FINDINGS/IMPRESSION: Lungs are clear. Heart is normal in size. Minimal dextroscoliosis in the spine. Report reviewed and signed by : Dr. Luis Mazariegos on 10/24/2024 6:35 PM. Workstation Name - [id number] -------- FINAL REPORT -------- Dictated By: Luis Mazariegos Dictated Date: 10/24/2024 18:34 ET Assigned Physician: Luis Mazariegos Reviewed and Electronically Signed By: Luis Mazariegos Signed Date: 10/24/2024 18:35 ET Workstation ID: [id number] Transcribed By: Self Edit Transcribed Date: 10/24/2024 18:34 ET Narrative 10/24/2024 6:35 PM EST XR CHEST 1 VIEW HISTORY:63 years Female ??fever COMPARISON:None Procedure Note Luis Mazariegos MD - 10/24/2024 XR CHEST 1 VIEW HISTORY:63 years Female fever COMPARISON:None IMPRESSION: FINDINGS/IMPRESSION: Lungs are clear. Heart is normal in size. Minimal dextroscoliosis in thespine. Report reviewed and signed by : Dr. Luis Mazariegos on 10/24/2024 6:35 PM.Workstation Name - [id number] -------- FINAL REPORT -------- Dictated By: Luis Mazariegos Dictated Date: 10/24/2024 18:34 ET Assigned Physician: Luis Mazariegos Reviewed and Electronically Signed By: Luis Mazariegos Signed Date: 10/24/2024 18:35 ET Workstation ID: [id number] Transcribed By: Self Edit Transcribed Date: 10/24/2024 18:34 ET Juan Miguel Mosqueda MD IMG XR PROCEDURES Fi nal Result * Respiratory virus panel molecular study (10/24/2024 5:26 PM EST) Adenovirus Detection by PCR Not Detected Not Detected LAB MICROBIOLOGY METHOD 10/24/2024 8:22 PM [facility] Influenza A PCR Not Detected Not Detected LAB MICROBIOLOGY METHOD 10/24/2024 8:22 PM [facility] Influenza B PCR Not Detected Not Detected, Invalid LAB MICROBIOLOGY METHOD 10/24/2024 8:22 PM [facility] Coronavirus 229E Not Detected Not Detected LAB MICROBIOLOGY METHOD 10/24/2024 8:22 PM [facility] Coronavirus HKU1 Not Detected Not Detected LAB MICROBIOLOGY METHOD 10/24/2024 8:22 PM [facility] Coronavirus OC43 Not Detected Not Detected LAB MICROBIOLOGY METHOD 10/24/2024 8:22 PM EST [facility] Coronavirus NL63 Not Detected Not Detected LAB MICROBIOLOGY METHOD 10/24/2024 8:22 PM [facility] Parainfluenza Virus 1 Not Detected Not Detected LAB MICROBIOLOGY METHOD 10/24/2024 8:22 PM [facility] Parainfluenza Virus 2 Not Detected Not Detected LAB MICROBIOLOGY METHOD 10/24/2024 8:22 PM [facility] Parainfluenza Virus 3 Not Detected Not Detected LAB MICROBIOLOGY METHOD 10/24/2024 8:22 PM EST [facility] Parainfluenza Virus 4 Not Detected Not Detected LAB MICROBIOLOGY METHOD 10/24/2024 8:22 PM EST [facility] RSV PCR Not Detected Not Detected LAB MICROBIOLOGY METHOD 10/24/2024 8:22 PM EST [facility] Human Metapneumovirus A and B Not Detected Not Detected LAB MICROBIOLOGY METHOD 10/24/2024 8:22 PM EST [facility] Rhinovirus/Entero virus Not Detected Not Detected LAB MICROBIOLOGY METHOD 10/24/2024 8:22 PM EST [facility] Bordetella pertussis Not Detected Not Detected LAB MICROBIOLOGY METHOD 10/24/2024 8:22 PM EST [facility] Bordetella parapertussis Not Detected Not Detected LAB MICROBIOLOGY METHOD 10/24/2024 8:22 PM EST [facility] Mycoplasma pneumo by PCR Not Detected Not Detected LAB MICROBIOLOGY METHOD 10/24/2024 8:22 PM EST [facility] Chlamydia pneumoniae Not Detected Not Detected LAB MICROBIOLOGY METHOD 10/24/2024 8:22 PM EST [facility] SARS COV-2 Not Detected Not Detected, Invalid LAB MICROBIOLOGY METHOD 10/24/2024 8:22 PM EST [facility] Swab Both anterior nares / Unknown Non-blood Collection / Unknown 10/24/2024 5:26 PM EST 10/24/2024 5:47 PM EST Juan Miguel Mosqueda MD LAB MICROBIOLOGY - G ENERAL ORDERABLES Final Result [facility] [address] [place] [address], [place] [phone] * (ABNORMAL) Cell count with reflex differential, body fluid (10/24/2024 4:11 PM EST) Body Fluid Source Synovial 10/24/2024 5:36 PM EST [facility] Body Fluid Clarity Turbid 10/24/2024 5:36 PM EST [facility] Body Fluid Color Red 10/24/2024 5:36 PM EST [facility] Body Fluid RBC 3,940,350(H) 0 - 1 /mm3 LAB HEMETOLOGY METHOD 10/24/2024 5:36 PM EST [facility] Body Fluid Total Nucleated Cells 5,010(H) <150 /mm3 LAB HEMETOLOGY METHOD 10/24/2024 5:36 PM EST [facility] Synovial Fluid Structure of left knee region / Unknown Non-blood Collection / Unknown 10/24/2024 4:11 PM EST 10/24/2024 4:13 PM EST us [facility] BODY FLUIDS AND STOOLS ORD ERABLES Final Result Performing Organization Address City/[facility]/ZIP Co de Phone Number [facility] [address] [place] [address], [place] [phone] * Culture body fluid with gram stain (10/24/2024 4:11 PM EST) Fluid Culture No Growth aerobically/a naerobically after 14 days incubation. 11/09/2024 11:11 AM EDT [facility] Gram Stain Result Moderate WBCs present 11/09/2024 11:11 AM EDT [facility] Gram Stain Result No organisms seen 11/09/2024 11:11 AM EDT [facility] Synovial Fluid Structure of left knee region / Unknown Non-blood Collection / Unknown 10/24/2024 4:11 PM EST 10/24/2024 4:13 PM EST us [facility] MICROBIOLOGY - GENERAL ORD ERABLES Final Result [facility] [address] [place] [address], [place] [phone] * (ABNORMAL) Differential body fluid (10/24/2024 4:11 PM EST) Fluid Neutrophils 83.0(H) <25.0 % 10/24/2024 6:23 PM EST [facility] Fluid Lymphocytes 11.0 <75.0 % 10/24/2024 6:23 PM EST [facility] Fluid Monocytes/Macrop hages 3.0 <70.0 % 10/24/2024 6:23 PM EST [facility] Fluid Eosinophils 3.0(H) 0.0 - 0.0 % 10/24/2024 6:23 PM EST [facility] Synovial Fluid Structure of left knee region / Unknown Non-blood Collection / Unknown 10/24/2024 4:11 PM EST 10/24/2024 4:13 PM EST us [facility] BODY FLUIDS AND STOOLS ORD ERABLES Final Result [facility] [address] [place] [address], [place] [phone] * Crystal identification, body fluid (10/24/2024 4:11 PM EST) Crystals, Fluid Absent Absent 10/24/2024 6:05 PM EST [facility] Synovial Fluid Structure of left knee region / Unknown Non-blood Collection / Unknown 10/24/2024 4:11 PM EST 10/24/2024 4:13 PM EST us [facility] BODY FLUIDS AND STOOLS ORD ERABLES Final Result [facility] [address] [place] [address], [place] [phone] * XR Knee 3 Views Left (10/24/2024 3:04 PM EST) Anatomical Region Laterality Modality Lower Extremities, Knee [facility] 10/24/2024 3:57 PM EST Impressions 10/24/2024 3:58 PM EST Status post left total knee arthroplasty with intact surgical hardware and anatomic alignment. Report reviewed and signed by : Dr. Ta Leong on 10/24/2024 3:58 PM. Workstation Name - [id number] -------- FINAL REPORT -------- Dictated By: Ta Leong Dictated Date: 10/24/2024 15:57 ET Assigned Physician: Ta Leong Reviewed and Electronically Signed By: Ta Leong Signed Date: 10/24/2024 15:58 ET Workstation ID: [id number] Transcribed By: Self Edit Transcribed Date: 10/24/2024 15:57 ET Narrative 10/24/2024 3:58 PM EST RADIOGRAPH OF THE LEFT KNEE CLINICAL HISTORY: knee pain, swelling TECHNIQUE: 3 views obtained. COMPARISON: None. FINDINGS: Status post left total knee arthroplasty with intact surgical hardware and anatomic alignment. Procedure Note Ta Leong MD - 10/24/2024 RADIOGRAPH OF THE LEFT KNEE CLINICAL HISTORY: knee pain, swelling TECHNIQUE: 3 views obtained. COMPARISON: None. FINDINGS: Status post left total knee arthroplasty with intact surgical hardware andanatomic alignment. IMPRESSION: Status post left total knee arthroplasty with intact surgical hardware andanatomic alignment. Report reviewed and signed by : Dr. Ta Leong on 10/24/2024 3:58 PM.Workstation Name - [id number] -------- FINAL REPORT -------- Dictated By: Ta Leong Dictated Date: 10/24/2024 15:57 ET Assigned Physician: Ta Leong Reviewed and Electronically Signed By: Ta Leong Signed Date: 10/24/2024 15:58 ET Workstation ID: [id number] Transcribed By: Self Edit Transcribed Date: 10/24/2024 15:57 ET Juan Miguel Mosqueda MD IMG XR PROCEDURES Fi nal Result * Vascular US duplex lower extremity venous left (10/24/2024 2:05 PM EST) Anatomical Region Laterality Modality Vascular, Abdomen Ultrasound 10/24/2024 2:08 PM EST Impressions 10/24/2024 2:09 PM EST No LEFT lower extremity deep venous thrombosis in the femoral popliteal system. CALF VEINS: Segmentally patent. Report reviewed and signed by : Dr. Vishal Riddle on 10/24/2024 2:09 PM. Workstation Name - [id number] -------- FINAL REPORT -------- Dictated By: Vishal Riddle Dictated Date: 10/24/2024 14:08 ET Assigned Physician: Vishal Riddle Reviewed and Electronically Signed By: Vishal Riddle Signed Date: 10/24/2024 14:09 ET Workstation ID: [id number] Transcribed By: Self Edit Transcribed Date: 10/24/2024 14:08 ET Narrative 10/24/2024 2:09 PM EST CLINICAL INFORMATION: Left lower extremity swelling COMPARISON: None available TECHNIQUE: Ultrasound of the LEFT lower extremity deep venous system is obtained. A duplex doppler study is performed, consisting of integrated two-dimensional (2D) real-time imaging: color flow doppler and doppler spectral analysis. FINDINGS: LEFT LOWER EXTREMITY: COMMON FEMORAL VEIN: Normal compressibility, phasicity, and flow. FEMORAL VEIN: ?-PROXIMAL: Normal compressibility and flow. ?-MID: Normal compressibility and flow. ?-DISTAL: Normal compressibility and flow. POPLITEAL VEIN: Normal compressibility and flow. CALF VEINS: Segmental evaluation of the posterior tibial and peroneal veins with normal flow and compressibility. No LEFT popliteal fossa collection is identified. ??Status post left knee replacement with adjacent anechoic fluid collection. Procedure Note Vishal Riddle MD - 10/24/2024 CLINICAL INFORMATION: Left lower extremity swelling COMPARISON: None available TECHNIQUE: Ultrasound of the LEFT lower extremity deep venous system isobtained. A duplex doppler study is performed, consisting of integratedtwo-dimensional (2D) real-time imaging: color flow doppler and dopplerspectral analysis. FINDINGS: LEFT LOWER EXTREMITY: COMMON FEMORAL VEIN: Normal compressibility, phasicity, and flow. FEMORAL VEIN: -PROXIMAL: Normal compressibility and flow. -MID: Normal compressibility and flow. -DISTAL: Normal compressibility and flow. POPLITEAL VEIN: Normal compressibility and flow. CALF VEINS: Segmental evaluation of the posterior tibial and peronealveins with normal flow and compressibility. No LEFT popliteal fossa collection is identified. Status post left kneereplacement with adjacent anechoic fluid collection. IMPRESSION: No LEFT lower extremity deep venous thrombosis in the femoral poplitealsystem. CALF VEINS: Segmentally patent. Report reviewed and signed by : Dr. Vishal Riddle on 10/24/2024 2:09 PM.Workstation Name - [id number] -------- FINAL REPORT -------- Dictated By: Vishal Riddle Dictated Date: 10/24/2024 14:08 ET Assigned Physician: Vishal Riddle Reviewed and Electronically Signed By: Vishal Riddle Signed Date: 10/24/2024 14:09 ET Workstation ID: [id number] Transcribed By: Self Edit Transcribed Date: 10/24/2024 14:08 ET Juan Miguel Mosqueda MD CV VASCULAR PROCEDUR ES Final Result * Lactate, with reflex (10/24/2024 1:38 PM EST) LACTIC ACID 1.1 0.5 - 2.2 mmol/L LAB BLOOD GAS METHOD 10/24/2024 2:02 PM EST [facility] Blood Venous blood specimen / Unknown Venipuncture / Unknown 10/24/2024 1:38 PM EST 10/24/2024 1:48 PM EST us Juan Miguel Mosqueda MD LAB BLOOD ORDERABLES Final Result [facility] [address] [place] [address], [place] [phone] * Blood Culture, Peripheral Draw #1 (10/24/2024 1:38 PM EST) Only the most recent of2 resultswithin the time period is included. Culture, Blood No growth at 5 days 10/29/2024 3:01 PM EST [facility] Blood Venous blood specimen / Unknown Venipuncture / Unknown 10/24/2024 1:38 PM EST 10/24/2024 1:49 PM EST Juan Miguel Mosqueda MD LAB MICROBIOLOGY - G ENERAL ORDERABLES Final Result [facility] [address] [place] [address], [place] [phone] * (ABNORMAL) Sedimentation rate (10/24/2024 1:38 PM EST) [facility] Sed Rate 49(H) 0 - 20 mm/hr LAB HEMETOLOGY METHOD 10/24/2024 2:11 PM EST [facility] Blood Venous blood specimen / Unknown Venipuncture / Unknown 10/24/2024 1:38 PM EST 10/24/2024 1:47 PM EST Juan Miguel Mosqueda MD LAB BLOOD ORDERABLES Final Result [facility] [address] [place] [address], [place] [phone] * (ABNORMAL) C-reactive protein (10/24/2024 1:38 PM EST) Pathologist [facility] C-Reactive Protein 19.7(H) <=0.9 mg/dL LAB CHEMISTRY METHOD 10/24/2024 2:23 PM EST [facility] Blood Venous blood specimen / Unknown Venipuncture / Unknown 10/24/2024 1:38 PM EST 10/24/2024 1:47 PM EST us Juan Miguel Mosqueda MD LAB BLOOD ORDERABLES Final Result [facility] [address] [place] [address], [place] [phone] from Last 3 Months Insurance MEDICARE [facility] Advance Directives * Full Code - Default (Latest Code Status on File) Date Activated Date Inactivated Comments 10/24/2024 7:10 PM 10/28/2024 4:12 PM This is order is used when code status has not been discussed with the patient, or code status is otherwise unknown/unconfirmed To update the patient's code status, place a code status order. Do not modify or discontinue any currently active code status orders. * Full Code - Confirmed Date Activated Date Inactivated Comments 08/03/2024 9:38 AM 08/04/2024 5:23 PM This code status was ascertained in the following way: Code status discussion: discussion with patient To update the patient's code status, place a code status order. Do not modify or discontinue any currently active code status orders. * Full Code - Confirmed Date Activated Date Inactivated Comments 08/03/2024 5:47 AM 08/03/2024 9:38 AM This code status was ascertained in the following way: Code status discussion: per living will or healthcare instructions To update the patient's code status, place a code status order. Do not modify or discontinue any currently active code status orders. Care Teams Photography Editor Relationship Specialty Start Date End Date Iris Serna MD [address] [place] [address] PCP - General Internal Medicine 08/02/24
== END 2024-11-23 09:25 | disposition home or self-care (01) ==
LOC: HO.HVNA 09:24
PROVIDERS: Visit Provider Internal Medicine Infectious Disease
DX: T84.54XA Infection and inflammatory reaction due to internal left knee prosthesis, initial encounter (principal); Z79.2 Long term (current) use of antibiotics
CPT/HCPCS: 36415; 80053; 80202; 85025; 85652; 86140

== ENCOUNTER 2024-11-30 09:07 | Outpatient (REF) | payer SELFPAY ==
[2024-11-30 09:13] LABS: MANUAL DIFF FLAG NO
[2024-11-30 09:25] LABS: Basophils Absolute Auto 0.1 X10*3/uL (0.0-0.2); Basophils Percent Auto 1.2 % (0-2); Eosinophils Absolute Auto 0.2 X10*3/uL (0.0-0.4); Eosinophils Percent Auto 5.4 % (0-4); Hematocrit 36.1 % (37.0-47.0); Hemoglobin 11.8 g/dl (12.0-16.0); Imm Gran Abs Auto 0.01 X10*3/uL (0.00-0.03); Imm Gran Pct Auto 0.2 % (0.0-0.4); Lymphocytes Absolute Auto 1.3 X10*3/uL (1.2-4.9); Lymphocytes Percent Auto 31.9 % (20-40); Mean Corpuscular HGB Conc 32.7 g/dl (31.0-35.0); Mean Corpuscular Hemoglobin 28.2 pg (27.0-33.0); Mean Corpuscular Volume 86.4 fL (80.0-98.0); Mean Platelet Volume 10.3 fL (9.4-12.3); Monocytes Absolute Auto 0.4 X10*3/uL (0.1-1.2); Monocytes Percent Auto 8.7 % (2-11); Neutrophils Absolute Auto 2.1 x10*3/uL (2.0-8.3); Neutrophils Percent Auto 52.6 % (45-73); Platelet Count 238 X10*3/uL (160-400); Red Blood Count 4.18 X10*6/uL (4.20-5.50); Red Cell Distribution Width 13.2 % (11.0-16.0)
[2024-11-30 09:32] LABS: Vancomycin Trough 14.4 mcg/mL (10.0-20.0)
[2024-11-30 09:36] LABS: Alanine Aminotransferase 13 U/L (0-31); Albumin Level 3.8 g/dL (3.5-5.0); Alkaline Phosphatase 59 U/L (39-117); Anion Gap 9 (12-20); Aspartate Amino Transferase 18 U/L (5-31); Bilirubin Total 0.6 mg/dL (0.0-1.0); Blood Urea Nitrogen 18 mg/dL (9-16); C Reactive Protein 0.26 mg/dL (< or = 0.50); Calcium 9.1 mg/dL (8.4-10.2); Carbon Dioxide 25 mmol/L (22-29); Chloride 111 mmol/L (96-108); Estimated Glomerular Filt Rate > 60; Glucose Random 96 mg/dL (60-115); Potassium 4.2 mmol/L (3.3-5.1); Sodium 141 mmol/L (135-145); Total Protein 5.9 g/dL (6.5-8.0)
--- OUTSIDE RECORDS SUMMARY | 2024-11-30 09:43 | XMS_ITS | Encounter Summary ---
Author Organization [facility] Address [address] [place] [id number] Phone Care Team Providers Care Community Organization Worker Name Role Phone Iris Serna MD Primary Care Provider [phone] Encounter Details Date Type Department Care Team (Late st Contact Info) Description 07/24/2023 Procedure Pass [facility] [address] [place] [id number] Social History Tobacco Use Types Packs/Day Years [...] st Contact Info) Description 09/14/2024 Procedure Pass [facility] MR Imaging, [place] [address] [place] [address] 05/29/2025 1:20 PM EDT Telemedicine [facility] Endocrine, Diabetes, and Hypertension [address] [address] Johnathan Lange MD [address] [facility] Endocrinology, Diabetes and Hypertension, [address] [place] [address] [email or web address] 07/03/2025 12:40 PM EST Appointment [facility] MR Imaging, [place] [address] [place] [address] Chance De PA-C [address] [place] [address] [email or web address]. [email or web address] 07/03/2025 1:30 PM EST Office Visit [facility] Department of Neurosurgery [address] [place] [address] Chance De PA-C [address] [place] [address] [email or web address]. [email or web address] 07/17/2025 1:00 PM EST Evaluation [facility] [address] [place] [address] Meghan Duarte, AuD [address] [place] [address] [email or web address] 07/17/2025 1:45 PM EST [facility] [address] [place] [address] Meghan Duarte, AuD [address] [place] [address] [email or web address] documented as of this encounter Visit Diagnoses Not on filedocumented in this encounter Additional Health Concerns Assessment Noted Time PHQ-2 Depression Total Score: 0 03/02/20 23 12:04 PM EDT documented as of this encounter Care Teams Community Organization Worker Relationship Specialty Start Date End Date Iris Serna MD [address] [place] [address] PCP - General Family Medicine 04/26/20 documented as of this encounter Additional Source Comments The information contained in this document represents components of the legal health record. It is not the complete legal health record.[facility]
--- OUTSIDE RECORDS SUMMARY | 2024-11-30 09:43 | XMS_ITS | Encounter Summary ---
Author Organization [facility] Address [address] [place] [address] Phone Care Team Providers Care Operations Superintendent Name Role Phone Iris Serna MD Primary Care Provider [phone] Encounter Details Date Type Department Care Team (Late st Contact Info) Description 12/15/2022 Procedure Pass [facility] MR Imaging, [address] [place] [address] Social History Tobacco Use Types Packs/Day Years [...] st Contact Info) Description 09/14/2024 Procedure Pass [facility] MR Imaging, Pereyra [address] [place] [address] 05/29/2025 1:20 PM EDT Telemedicine [facility] Endocrine, Diabetes, and Hypertension [address] [place] [address] Johnathan Lange MD [address] [place] [address] Endocrinology, Diabetes and Hypertension, RFB-2 [place] [address] [email or web address] 07/03/2025 12:40 PM EST Appointment [facility] MR Imaging, Pereyra [address] [place] [address] Chance De PA-C [address], Floor 4 [place] [address] [email or web address]. KAROL 07/03/2025 1:30 PM EST Office Visit [facility] Department of Neurosurgery [address] [place] [address] Chance De PA-C [address], Floor 4 [place] [address] [email or web address]. KAROL 07/17/2025 1:00 PM EST [facility] [address] [place] [address] DuarteMeghan alegria, AuD [address] [place] [address] [email or web address] 07/17/2025 1:45 PM EST [facility] [address] [place] [address] Duarte Meghan M, AuD [address] [place] [address] [email or web address] documented as of this encounter Visit Diagnoses Not on filedocumented in this encounter Additional Health Concerns Assessment Noted Time PHQ-2 Depression Total Score: 0 03/02/20 23 12:04 PM EDT documented as of this encounter Care Teams Operations Superintendent Relationship Specialty Start Date End Date Iris Serna MD [address] [place] [address] PCP - General Family Medicine 04/26/20 documented as of this encounter Additional Source Comments The information contained in this document represents components of the legal health record. It is not the complete legal health record.[facility]
--- OUTSIDE RECORDS SUMMARY | 2024-11-30 09:43 | XMS_ITS | Encounter Summary ---
Author Organization [facility] [place] [address] Care Team Providers Care Process Plant Operator Name Role Phone Iris Serna MD Primary Care Provider [phone] Reason for Visit * Reason Onset Date Comments Need order for removal of PICC line at end of th erapy 11/29/2024 Encounter Details Date Type Department Care Team (Late st Contact Info) Description 11/29/2024 Telephone Infectious Disease - [place] [address] [place] [address] Svetlana Cruz, RN Need order for removal of PICC line at end of therapy Social History Tobacco Use Types Packs/Day Years Used Date Smoking Tobacco: Never Smokeless Tobacco: Never Alcohol Use Standard Drinks/Week Comments Yes 2 [...] for your loved ones. For example, child development director or elderly care for an older adult? [...] Orientation Straight 07/27/2024 10 :41 AM EST documented as of this encounter Progress Notes * Svetlana Camara RN - 11/29/2024 4:14 PM EDT Mechelle from [facility] called stating she will need an order to remove PICC line faxed to [facility] at [phone]. Per Mechelle end date IV/ABT is 12/07/24. Mechelle Pringle [facility] [phone] documented in this encounter Plan of Treatment Upcoming Encounters Date Type Department Care Team (Late st Contact Info) Description 12/21/2024 11:00 AM EDT Office Visit Infectious Disease - [place] [address] [place] [address] Nicolle Kelly MD [address] [place] [address] documented as of this encounter Visit Diagnoses Not on filedocumented in this encounter Care Teams Process Plant Operator Relationship Specialty Start Date End Date Iris Serna MD [address] [place] [address] PCP - General Internal Medicine 08/02/24 documented as of this encounter
--- OUTSIDE RECORDS SUMMARY | 2024-11-30 09:43 | XMS_ITS | Patient Health Record ---
Author Organization [facility] Address [address] [place] [address] Support Name Relationship Address Phone HEAVEN ESPOSITO Guarantor Unknown [phone] Reason For Referral No Information Medications Medication SIG (Take, Route, Fr equency, Duration) Notes Start Date End Date Status PriLOSEC OTC 20MG 1 ORAL daily for -3 James-MJ 09/08/2011 Active Problems Problem Type SNOMED Code ICD Code Onset Dates Problem Status W/U Status Risk Notes Problem Menopausal symptom (32050939) Symptomatic menopausal or female climacteric states (627.2) Active confirmed Major Problem Gynecological examination normal (924001525777478) Routine gynecological examination (V72.31) Active confirmed Major Plan Of Treatment No Information Insurance Providers Payer Name Payer Address Payer Phone Subscriber Number Group Number Insured Name Patient Relationship to Insured Coverage Start Date Coverage End Date [facility] [address] [place] [address] [phone] [id number] HEAVEN Self - patient is the insured
--- OUTSIDE RECORDS SUMMARY | 2024-11-30 09:44 | XMS_ITS | Clinical Summary ---
Author Organization [facility] Address [address] [facility] [address] [place] [address] Phone Care Team Providers Care Prison Guard Name Role Phone Iris Serna MD Primary Care Provider [phone] Allergies No known active allergies Medications Medication [...] Team Description 10/24/2024 1:00 PM EST Telemedicine [facility] Endocrine, Diabetes, and Hypertension [address] [address] Johnathan Lange MD Graves disease (Primary Dx) 10/20/2024 11:07 AM EST - 10/20/2024 11:59 PM EST Hospital Encounter [facility] [address] [place] [address] Johnathan Lange MD Discharge Disposition: Home or Self Care 10/08/2024 7:24 AM EST - 10/08/2024 11:59 PM EST Hospital Encounter [address] [place] [address] Marcia Romero MD, RACHID Discharge Disposition: Home or Self Care 09/28/2024 11:30 AM EST Office Visit [facility] Pain Management [address] [address] Marcia Romero MD, RACHID Lumbar radiculopathy (Primary Dx); Meralgia paresthetica, unspecified laterality; Neuralgia; Lumbar radicular pain; Spinal stenosis, lumbar region, without neurogenic claudication; Lumbar radiculitis 09/28/2024 Procedure Pass [address] [place] [address] 09/14/2024 Orders Only [facility] Department of Neurosurgery 60 [place] [address] Marylou Owen Vestibular schwannoma (Primary Dx) 09/06/2024 8:40 AM EST Office Visit [facility] Pain Management [address] [address] Marcia Romero MD, RACHID Meralgia paresthetica, unspecified laterality (Primary Dx); Other chronic pain 09/05/2024 Orders Only [facility] Pain Management [address] [place] [address] Marcia Romero MD, RACHID Other chronic pain (Primary Dx) 09/05/2024 Orders Only [facility] Pain Management [address] [address] Sadie Alegria from Last 3 Months Family [...] Contact Info) Description 09/14/2024 Procedure Pass [facility] MR Imaging, [address]reyra [address] [place] [address] 05/29/2025 1:20 PM EDT Telemedicine [facility] Endocrine, Diabetes, and Hypertension [address] [place] [address] Johnathan Lange MD [address] [place] [address] Endocrinology, Diabetes and Hypertension, [address] [place] [address] [email or web address] 07/03/2025 12:40 PM EST Appointment [facility] MR Imaging, Pereyra [address] [place] [address] Chance De PA-C [address] [facility], [address] 4 [place], [place] [email or web address]. [email or web address] 07/03/2025 1:30 PM EST Office Visit [facility] Department of Neurosurgery [address] [place] [address] Chance De PA-C [address], [address] 4 [place] [address] [email or web address]. [email or web address] 07/17/2025 1:00 PM EST Evaluation [facility] [address] [place] [address] Meghan Duarte, AuD 75 [place] [address] [email or web address] 07/17/2025 1:45 PM EST Evaluation [facility] [address] [place] [address] Meghan Duarte, AuD [address] [place] [address] [email or web address] Health Maintenance Due Date Last Done Comments [...] this topic Medical Devices Implanted Type Area Hydro Station Operator Device Identifier Shelf Expiration Date Model / Serial / Lot Coil Embolization 6mm 14cm .035in Lilly Soft Blackfeet Synthetic Fiber Stretch - [id number] Implanted:Qty: 1 on 05/07/2020 by Kole Romeo MD at [facility] Coil Left: Ovary DiscoveRX 06/10/2024 [id number] / / [id number] Description:Left Ovarian Vei n MRI SAFETY INFORMATION [...] 15 minutes of continuous scanning. 07/01/2021 [facility] https://www.Topadmit.[employer]/data/resources/[id number].pd Coil Embolization 4mm 14cm .035in Lilly Soft Blackfeet Synthetic Fiber Stretch - [id number] Implanted:Qty: 1 on 05/07/2020 by Kole Romeo MD at [facility] Coil Right: Vein [employer] 06/22/2024 [id number] / / [id number] Description:RT OVARIAN VEIN MRI SAFETY INFORMATION Nonclinical [...] after 15 minutes of continuous scanning. [facility]/2021 [facility]/data/resources/[id number].pd Coil Embolization 4mm 14cm .035in Lilly Soft Blackfeet Synthetic Fiber Stretch - [id number] Implanted:Qty: 1 on 05/07/2020 by Kole Romeo MD at [facility] Coil Right: Vein [employer] 06/22/2024 [id number] / / [id number] Description:RT OVARIAN VEIN MRI SAFETY INFORMATION Nonclinical [...] after 15 minutes of continuous scanning. 07/01/2021 [facility]www[facility]/data/resources/[id number].pd Coil Embolization 4mm 14cm .035in Lilly Soft Blackfeet Synthetic Fiber Stretch - [id number] Implanted:Qty: 1 on 05/07/2020 by Kole Romeo MD at [facility] Coil Right: Vein [employer] 06/22/2024 [id number] / / [id number] Description:RT OVARIAN VEIN MRI SAFETY INFORMATION Nonclinical [...] after 15 minutes of continuous scanning. 07/01/2021 [facility]www.[facility]/data/resources/[id number].pd Coil Embolization 12mm 14cm .035in Lilly Soft Blackfeet Synthetic Fiber Stretch - [id number] Implanted:Qty: 1 on 05/07/2020 by Kole Romeo MD at [facility] Coil Right: Vein [employer] 11/09/2024 [id number] / / [id number] Description:RT OVARIAN VEIN MRI SAFETY INFORMATION Nonclinical [...] after 15 minutes of continuous scanning. 07/01/2021 [facility]www.Globili/data/resources/[id number].pd Coil Embolization 6mm 14cm .035in Lilly Soft Blackfeet Synthetic Fiber Stretch - [id number] Implanted:Qty: 1 on 05/07/2020 by Kole Romeo MD at [facility] Coil Left: Ovary [employer] 06/10/2024 [id number] / / [id number] Description:Left Ovarian Vei n MRI SAFETY INFORMATION [...] after 15 minutes of continuous scanning. 07/01/2021 [facility] https://www.Globili/data/resources/[id number].pd Coil Embolization 6mm 14cm .035in Lilly Soft Blackfeet Synthetic Fiber Stretch - [id number] Implanted:Qty: 1 on 05/07/2020 by Kole Romeo MD at [facility] Coil Left: Ovary [employer] 06/10/2024 [id number] / / [id number] Description:Left Ovarian Vei n MRI SAFETY INFORMATION [...] 15 minutes of continuous scanning. 07/01/2021 [facility] https://www.Globili/data/resources/[id number].pd Coil Embolization 6mm 14cm .035in Lilly Soft Blackfeet Synthetic Fiber Stretch - [id number] Implanted:Qty: 1 on 05/07/2020 by Kole Romeo MD at [facility] Coil Left: Ovary [employer] 06/10/2024 [id number] / / [id number] Description:Left Ovarian Vei n MRI SAFETY INFORMATION [...] 15 minutes of continuous scanning. 07/01/2021 [facility] https://www.Globili/data/resources/[id number].pd Coil Embolization 6mm 14cm .035in Lilly Soft Blackfeet Synthetic Fiber Stretch - [id number] Implanted:Qty: 1 on 05/07/2020 by Kole Romeo MD at [facility] Coil Left: Ovary [employer] 06/10/2024 [id number] / / [id number] Description:Left Ovarian Vei n MRI SAFETY INFORMATION [...] 15 minutes of continuous scanning. 07/01/2021 [facility] https://www.Globili/data/resources/[id number].pd Coil Embolization 6mm 14cm .035in Lilly Soft Blackfeet Synthetic Fiber Stretch - [id number] Implanted:Qty: 1 on 05/07/2020 by Kole Romeo MD at [facility] Coil Left: Ovary [employer]RX 06/10/2024 G35443 / / [id number] Description:Left Ovarian Vei n MRI SAFETY INFORMATION [...] 15 minutes of continuous scanning. 07/01/2021 [facility] https://www.Globili/data/resources/[id number].pd Coil Embolization 6mm 14cm .035in Lilly Soft Blackfeet Synthetic Fiber Stretch - [id number] Implanted:Qty: 1 on 05/07/2020 by Kole Romeo MD at [facility] Coil Left: Ovary [employer] 06/10/2024 L80087 / / [id number] Description:Left Ovarian Vei n MRI SAFETY INFORMATION [...] 15 minutes of continuous scanning. 07/01/2021 [facility] https://www.Globili/data/resources/[id number].pd Coil Embolization 6mm 14cm .035in Lilly Soft Blackfeet Synthetic Fiber Stretch - [id number] Implanted:Qty: 1 on 05/07/2020 by Kole Romeo MD at [facility] Coil Left: Ovary [employer] 06/17/2024 [id number] / / [id number] Description:Left Ovarian Vei n MRI SAFETY INFORMATION [...] 15 minutes of continuous scanning. 07/01/2021 [facility] https://www.Globili/data/resources/[id number].pd Coil Embolization 12mm 14cm .035in Lilly Soft Blackfeet Synthetic Fiber Stretch - [id number] Implanted:Qty: 1 on 05/07/2020 by Kole Romeo MD at [facility] Coil Left: Ovary [employer] 11/09/2024 N47320 / / [id number] Description:Left Ovarian Vei n MRI SAFETY INFORMATION [...] after 15 minutes of continuous scanning. 07/01/2021 [facility] https://www.Globili/data/resources/[id number].pd Coil Embolization 8mm 14cm .035in Lilly Soft Blackfeet Synthetic Fiber Stretch - [id number] Implanted:Qty: 1 on 05/07/2020 by Kole Romeo MD at [facility] NODATA Left: Ovary [employer] 06/15/2024 B09864 / / [id number] Description:Left Ovarian Vei n MRI SAFETY INFORMATION [...] after 15 minutes of continuous scanning. 07/01/2021 [facility] https://www.Globili/data/resources/[id number].pd Coil Embolization 8mm 14cm .035in Lilly Soft Blackfeet Synthetic Fiber Stretch - [id number] Implanted:Qty: 1 on 05/07/2020 by Kole Romeo MD at [facility] Left: Ovary [employer] 06/30/2024 U31022 / / [id number] Description:Left Ovarian Vei n MRI SAFETY INFORMATION [...] after 15 minutes of continuous scanning. 07/01/2021 [facility] https://www.Globili/data/resources/[id number].pd Coil Embolization 8mm 14cm .035in Lilly Soft Blackfeet Synthetic Fiber Stretch - [id number] Implanted:Qty: 1 on 05/07/2020 by Kole Romeo MD at [facility] Right: Vein [employer] 10/05/2024 Q57267 / / [id number] Description:RT OVArian vein MRI SAFETY INFORMATION Nonclinical [...] after 15 minutes of continuous scanning. 07/01/2021 [facility]://www.Globili/data/resources/[id number].pd Coil Embolization 8mm 14cm .035in Lilly Soft Blackfeet Synthetic Fiber Stretch - [id number] Implanted:Qty: 1 on 05/07/2020 by Kole Romeo MD at [facility] NODATA Right: Vein [employer] 10/05/2024 [id number] / / [id number] Description:RT OVARIAN VEIN MRI SAFETY INFORMATION Nonclinical [...] after 15 minutes of continuous scanning. 07/01/2021 [facility]www.Globili/data/resources/[id number].pd Coil Embolization 8mm 14cm .035in Lilly Soft Blackfeet Synthetic Fiber Stretch - [id number] Implanted:Qty: 1 on 05/07/2020 by Kole Romeo MD at [facility] Right: Vein [employer] 10/05/2024 [id number] / / [id number] Description:RT OVARIAN VEIN MRI SAFETY INFORMATION Nonclinical [...] after 15 minutes of continuous scanning. 07/01/2021 [facility]://www.Globili/data/resources/[id number].pd Kit Graft 10ml Bone Void Filler Cement Injectable Calcium Phosphate Liquid Powder Bowl Spatula Syringe Hydroset - [id number] Implanted:Qty: 1 on 07/11/2020 by Christiano Clifford MD, PhD, MPH at [facility] Right: Cranial JANICE CRANIOMAXILLOFACIAL DI 10/06/2021 [id number] / / [id number] Mesh Plate .4mm Cranial Matrixneuro Titanium Contourable Malleable Temporal - [id number] Implanted:Qty: 2 on 07/11/2020 by Christiano Clifford MD, PhD, MPH at [facility] Cranial SYNTHES 04.503.0 57 / / Screw Bone 1.5x4mm Ti Self Drilling Matrixneuro - [id number] Implanted:Qty: 9 on 07/11/2020 by Christiano Clifford MD, PhD, MPH at [facility] STANDARD Cranial SYNTHES 04.503.1 04.01 / / Graft 12x4cm Tissue Thin Ready To Use Alloderm Regenerative Tissue Matrix Implantable - [id number] Implanted:Qty: 1 on 07/11/2020 by Christiano Clifford MD, PhD, MPH at [facility] Right: Cranial ALLERGAN 04/24/2022 [id number] / / [id number] Graft Duragen Plus 3x3in Dural Regeneration Matrix Pk/5ea - [id number] Implanted:Qty: 1 on 07/11/2020 by Christiano Clifford MD, PhD, MPH at [facility] Right: Cranial INTEGRA Bacula SystemsCIENCES JEFFRY 10/21/2022 [id number] / / [id number] Procedures Procedure Name Priority Date/Time Associated Diagnosis [...] EST) TSH 3.23 0.27 - 4.20 uIU/mL [facility] Blood 10/20/2024 11:0 7 AM EST 10/20/2024 11:10 AM EST Johnathan Lange MD LAB BLOOD ORDERABLES [address] [address] * Free T4 (10/20/2024 11:07 AM EST) FREE T4 1.3 0.9 - 1.7 ng/dL [facility] Blood 10/20/2024 11:0 7 AM EST 10/20/2024 11:10 AM EST Johnathan Lange MD LAB BLOOD ORDERABLES [address] [address] * MRI LUMBAR SPINE (NEURO) WITHOUT CONTRAST [...] disease. The disc bulges at L4-5 and L5-Y0cqmzloc slightly worse than prior study. Marcia Romero MD, RACHID [facility] MR XSPECIALTY * [place] Fluoroscopy (09/06/2024 8:32 AM EST) Narrative DELMA - 09/06/2024 8:32 AM EST Fluoroscopy was provided during this procedure. RACHID Alfonso MD [place] MISC DELMA from Last 3 Months Advance Directives For more information, please contact: [phone] (9AM - 5PM [facility], Thursday-Thursday) Documents on File Type Date Recorded Patient Auto Camp Attendant Expl anation Healthcare Proxy 07/25/2020 1:05 PM * Full Code (Latest Code Status on File) Date Activated Date Inactivated Comments 07/11/2020 7:15 PM Question Answer Comments Code Status Confirmed With: Patient * Full Code Date Activated Date Inactivated Comments 05/07/2020 2:14 PM 07/11/2020 7:46 AM Question Answer Comments Code Status Confirmed With: Patient Care Teams Prison Guard Relationship Specialty Start Date End Date Iris Serna MD [address] [place] [address] PCP - General Family Medicine 04/26/20 Additional Source Comments The information contained in this document represents components of the legal health record. It is not the complete legal health record.[facility]
--- OUTSIDE RECORDS SUMMARY | 2024-11-30 09:44 | XMS_ITS | Encounter Summary ---
Author Organization [facility] Address [address] [address] Phone Care Team Providers Care Painter Sign Maintenance Name Role Phone Iris Serna MD Primary Care Provider [phone] Encounter Details Date Type Department Care Team (Late st Contact Info) Description 07/11/2020 Procedure Pass [facility] [address] [place] [address] Social History Tobacco Use Types Packs/Day Years [...] st Contact Info) Description 09/14/2024 Procedure Pass [facility] MR Imaging, Pereyra [address] [place] [address] 05/29/2025 1:20 PM EDT Telemedicine [facility] Endocrine, Diabetes, and Hypertension [address] [place] [address] [place] [address] Johnathan Lange MD [address] [facility] Endocrinology, Diabetes and Hypertension, [address] [place] [address] [email or web address] 07/03/2025 12:40 PM EST Appointment [facility] MR Imaging, Pereyra [address] [place] [address] Chance De PA-C [address], Floor 4 [place] [address] [email or web address] KAROL 07/03/2025 1:30 PM EST Office Visit [facility] Department of Neurosurgery [address] [place] [address] Chance De PA-C [address] [facility], Floor 4 [place] [address] [email or web address] 07/17/2025 1:00 PM EST [facility] [address] [place] [address] Meghan Duarte, AuD [address] [place] [address] [email or web address] 07/17/2025 1:45 PM EST [facility] [address] [place] [address] Meghan Duarte, AuD [address] [place] [address] [email or web address] documented as of this encounter Visit Diagnoses Not on filedocumented in this encounter Additional Health Concerns Assessment Noted Time PHQ-2 Depression Total Score: 0 04/16/20 20 12:22 PM EDT documented as of this encounter Care Teams Painter Sign Maintenance Relationship Specialty Start Date End Date Iris Serna MD [address] [place] [address] PCP - General Family Medicine 04/26/20 documented as of this encounter Additional Source Comments The information contained in this document represents components of the legal health record. It is not the complete legal health record.[facility]
--- OUTSIDE RECORDS SUMMARY | 2024-11-30 09:44 | XMS_ITS | Encounter Summary ---
Author Organization [facility] Address [address] [place] [address] Phone Care Team Providers Care Customer Insight Analyst Name Role Phone Iris Serna MD Primary Care Provider +1 [phone] Encounter Details Date Type Department Care Team (Late st Contact Info) Description 03/13/2022 Procedure Pass [facility] MR Imaging, Epreyra 60 [place] [address] Social History Tobacco Use Types Packs/Day Years [...] st Contact Info) Description 09/14/2024 Procedure Pass [facility] MR Imaging, Pereyra 60 [place] [address] 05/29/2025 1:20 PM EDT Telemedicine [facility] Endocrine, Diabetes, and Hypertension [address] [place] [address] Johnathan Lange MD [address] [place] [address] Endocrinology, Diabetes and Hypertension, [facility] [place] [address] [email or web address] 07/03/2025 12:40 PM EST Appointment [facility] MR Imaging, Pereyra [address] [place] [address] Chance De PA-C [address], Floor 4 [place] [address] [email or web address]. KAROL 07/03/2025 1:30 PM EST Office Visit [facility] Department of Neurosurgery [address] [place] [address] Chance De PA-C [address], Floor 4 [place] [address] [email or web address]. [email or web address] 07/17/2025 1:00 PM EST Evaluation [facility] Multispecialty [address] [place] [address] Meghan Duarte, AuD 75 [place] [address] [email or web address] 07/17/2025 1:45 PM EST [facility] [address] [place] [address] Meghan Duarte, AuD 75 [place] [address] [email or web address] documented as of this encounter Visit Diagnoses Not on filedocumented in this encounter Additional Health Concerns Assessment Noted Time PHQ-2 Depression Total Score: 0 03/03/20 22 11:21 AM EDT documented as of this encounter Care Teams Customer Insight Analyst Relationship Specialty Start Date End Date Iris Serna MD [address] [place] [address] PCP - General Family Medicine 04/26/20 documented as of this encounter Additional Source Comments The information contained in this document represents components of the legal health record. It is not the complete legal health record.[facility]
--- OUTSIDE RECORDS SUMMARY | 2024-11-30 09:44 | XMS_ITS | Encounter Summary ---
Author Organization [facility] Address [address] [place] [address] Phone Care Team Providers Care Base Filler Name Role Phone Iris Serna MD Primary Care Provider +1 [phone] Encounter Details Date Type Department Care Team (Late st Contact Info) Description 06/13/2020 Procedure [address] [facility] CT Imaging, Pereyra [address] [place] [address] Social History Tobacco Use Types Packs/Day Years [...] st Contact Info) Description 09/14/2024 Procedure Pass [facility] MR Imaging, Pereyra [address] [place] [address] 05/29/2025 1:20 PM EDT Telemedicine [facility] Endocrine, Diabetes, and Hypertension [address] [place] [address] Johnathan Lange MD [address] [place] [address] Endocrinology, Diabetes and Hypertension, [facility] [place] [address] [email or web address] 07/03/2025 12:40 PM EST Appointment [facility] MR Imaging, Pereyra [address] [place] [address] Chance De PA-C [address], Floor 4 [place] [address] [email or web address]. [place] 07/03/2025 1:30 PM EST Office Visit [facility] Department of Neurosurgery [address] [place] [address] Chance De PA-C [address], Floor 4 [place] [address] [email or web address]. KAROL 07/17/2025 1:00 PM EST Evaluation [facility] Multispecialty [address] [place] [address] Meghan Duarte, AuD [address] [place] [address] [email or web address] 07/17/2025 1:45 PM EST [facility] [address] [place] [address] Meghan Duarte, AuD [address] [place] [address] [email or web address] documented as of this encounter Visit Diagnoses Not on filedocumented in this encounter Additional Health Concerns Assessment Noted Time PHQ-2 Depression Total Score: 0 04/16/20 20 12:22 PM EDT documented as of this encounter Care Teams Base Filler Relationship Specialty Start Date End Date Iris Serna MD [address] [place] [address] PCP - General Family Medicine 04/26/20 documented as of this encounter Additional Source Comments The information contained in this document represents components of the legal health record. It is not the complete legal health record.[facility]
--- OUTSIDE RECORDS SUMMARY | 2024-11-30 09:44 | XMS_ITS | Encounter Summary ---
Author Organization [facility] Address [address] [place] [address] Phone Care Team Providers Care Lathe Setup Operator Name Role Phone Iris Serna MD Primary Care Provider [phone] [phone] Encounter Details Date Type Department Care Team (Late st Contact Info) Description 11/21/2020 Procedure Pass [facility] Angio Interventional Radiology [address] [place] [address] Social History Tobacco Use Types Packs/Day Years [...] (Late Contact Info) Description 09/14/2024 Procedure Pass [facility] MR Imaging, Pereyra 60 [place] [address] 05/29/2025 1:20 PM EDT Telemedicine [facility] Endocrine, Diabetes, and Hypertension [address] [place] [address] Johnathan Lange MD [address] [place] [address] Endocrinology, Diabetes and Hypertension, [facility]2 [place] [address] [email or web address] 07/03/2025 12:40 PM EST Appointment [facility] MR Imaging, Pereyra [address] [place] [address] Chance De PA-C [address], Floor 4 [place] [address] [email or web address]. KAROL 07/03/2025 1:30 PM EST Office Visit [facility] Department of Neurosurgery [address] [place] [address] Chance De PA-C [address], Floor 4 [place] [address] [email or web address]. KAROL 07/17/2025 1:00 PM EST Evaluation [facility] Multispecialty [address] [place] [address] Meghan Duarte, AuD 75 [place] [address] [email or web address] 07/17/2025 1:45 PM EST [facility] [address] [place] [address] Meghan Duarte, AuD 75 [place] [address] [email or web address] documented as of this encounter Visit Diagnoses Not on filedocumented in this encounter Additional Health Concerns Assessment Noted Time PHQ-2 Depression Total Score: 0 04/16/20 20 12:22 PM EDT documented as of this encounter Care Teams Lathe Setup Operator Relationship Specialty Start Date End Date Iris Serna MD [address] [place] [address] PCP - General Family Medicine 04/26/20 documented as of this encounter Additional Source Comments The information contained in this document represents components of the legal health record. It is not the complete legal health record.[facility]
--- OUTSIDE RECORDS SUMMARY | 2024-11-30 09:44 | XMS_ITS | Encounter Summary ---
Author Organization [facility] Address [address] [place] [address] Phone Care Team Providers Care Assistant Accounting Manager Name Role Phone Iris Serna MD Primary Care Provider [phone] [phone] Encounter Details Date Type Department Care Team (Late st Contact Info) Description 07/11/2020 Procedure Pass [facility] [address] [place] [address] Social History Tobacco Use Types Packs/Day Years [...] st Contact Info) Description 09/14/2024 Procedure Pass [facility] MR Imaging, Pereyra [address] [place] [address] 05/29/2025 1:20 PM EDT Telemedicine [facility] Endocrine, Diabetes, and Hypertension [address] [place] [address] Johnathan Lange MD [address] [place] [address] Endocrinology, Diabetes and Hypertension, B-[address] [place] [address] [email or web address] 07/03/2025 12:40 PM EST Appointment [facility] MR Imaging, Pereyra [address] [place] [address] Chance De PA-C [address], Floor 4 [place] [address] [email or web address]. KAROL 07/03/2025 1:30 PM EST Office Visit [facility] Department of Neurosurgery [address] [place] [address] Chance De PA-C [address], Floor 4 [place] [address] [email or web address]. [email or web address] 07/17/2025 1:00 PM EST Evaluation [facility] Multispecialty [address] [place] [address] Meghan Duarte, AuD 75 [place] [address] [email or web address] 07/17/2025 1:45 PM EST [facility] [address] [place] [address] Meghan Duarte, AuD 75 [place] [address] [email or web address] documented as of this encounter Visit Diagnoses Not on filedocumented in this encounter Additional Health Concerns Assessment Noted Time PHQ-2 Depression Total Score: 0 04/16/20 20 12:22 PM EDT documented as of this encounter Care Teams Assistant Accounting Manager Relationship Specialty Start Date End Date Iris Serna MD [address] [place] [address] PCP - General Family Medicine 04/26/20 documented as of this encounter Additional Source Comments The information contained in this document represents components of the legal health record. It is not the complete legal health record.[facility]
--- OUTSIDE RECORDS SUMMARY | 2024-11-30 09:44 | XMS_ITS | Patient Health Record ---
Author Organization [facility] Address [address] [place] [address] [place] [id number] Care Team Providers Care Asbestos Abatement Worker Name Role Phone Angel Major Primary Care Provider Kaleigh Wyman Unavailable [phone] Reason For Referral No Information Medications Medication [...] of medial cartilage AND/OR meniscus of knee (281911177) Medial meniscal tear (836.0) Active confirmed Problem [...] Date [place] [address] [place] [address] [phone] [id number] Brenda Pichardo Self - patient is the [...] Euflexxa #3, we supply 08/31/2017 INJ Depo/Lido (XP-XV-urp-hip-knee) 06/02/2013 INJ Depo/Lido (LP-AQ-gfi-hip-knee) 08/05/2013 INJ Depo/Lido (WW-DS-rpd-hip-knee) 01/27/2014 INJ Depo/Lido (PW-HW-mbd-hip-knee) 07/07/2014 INJ Depo/Lido (IK-NA-hiq-hip-knee) 07/07/2014 INJ Depo/Lido (PR-RK-tbt-hip-knee) 03/12/2015 2/8 INJ Gini/Lido (MD-DZ-bnc-hip-knee) 03/28/2016 2/6 INJ Gini/Lido (BN-YN-ome-hip-knee) 09/02/2018 Medical (General) History Medical History History ICD Code Rheumatoid arthritis Graves Disease Surgical History Surgery Date(Month/Year) Right knee arthroscopy, part ial medial menisectomy, chondroplasty patella 06/28/14 JPD Right knee arthroscopy, medial menisecto my, chondroplasty patella 04/27/13 JPD Salpingo-oophorectomy T & A Right Knee arthroscopy 2007
--- OUTSIDE RECORDS SUMMARY | 2024-11-30 09:44 | XMS_ITS | Encounter Summary ---
Author Organization [facility] Address [address] [place] [address] Phone Care Team Providers Care Senior Counsel Commercial Name Role Phone Iris Serna MD Primary Care Provider [phone] [phone] Encounter Details Date Type Department Care Team (Late st Contact Info) Description 10/10/[address] [facility] CT Imaging, Pereyra 60 [place] [address] Social History Tobacco Use Types Packs/Day Years [...] st Contact Info) Description 09/14/[address] [facility] MR Imaging, Pereyra 60 [place] [address] 05/29/2025 1:20 PM EDT Telemedicine [facility] Endocrine, Diabetes, and Hypertension [address] [place] [address] Johnathan Lange MD [address] [place] [address] Endocrinology, Diabetes and Hypertension, B-[address] [place] [address] [email or web address] 07/03/2025 12:40 PM EST Appointment [facility] MR Imaging, Pereyra [address] [place] [address] Chance De PA-C [address], Floor 4 [place] [address] [email or web address]. [email or web address] 07/03/2025 1:30 PM EST Office Visit [facility] Department of Neurosurgery [address] [place] [address] Chance De PA-C [address], Floor 4 [place] [address] [email or web address]. [email or web address] 07/17/2025 1:00 PM EST Evaluation [facility] Multispecialty [address] [place] [address] Meghan Duarte, AuD 75 [place] [address] [email or web address] 07/17/2025 1:45 PM EST [facility] [address] [place] [address] Meghan Duarte, AuD 75 [place] [address] [email or web address] documented as of this encounter Visit Diagnoses Not on filedocumented in this encounter Additional Health Concerns Assessment Noted Time PHQ-2 Depression Total Score: 0 04/16/20 20 12:22 PM EDT documented as of this encounter Care Teams Senior Counsel Commercial Relationship Specialty Start Date End Date Iris Serna MD [address] [place] [address] PCP - General Family Medicine 04/26/20 documented as of this encounter Additional Source Comments The information contained in this document represents components of the legal health record. It is not the complete legal health record.[facility]
--- OUTSIDE RECORDS SUMMARY | 2024-11-30 09:44 | XMS_ITS | Encounter Summary ---
Author Organization [facility] Address [address] [place] [address] Phone Care Team Providers Care Matchbook Maker Name Role Phone Iris Serna MD Primary Care Provider +1 -[phone] Encounter Details Date Type Department Care Team (Late st Contact Info) Description 09/28/2024 Procedure Pass [address] [place] [address] Social History Tobacco Use Types Packs/Day Years [...] st Contact Info) Description 09/14/[address] [facility] MR Imaging, Pereyra [address] [place] [address] 05/29/2025 1:[address] [facility] Endocrine, Diabetes, and Hypertension [address] [address] Johnathan Lange MD 221 [facility] Endocrinology, Diabetes and Hypertension, [facility] [place] [address] [email or web address] 07/03/2025 12:[address] [facility] MR Imaging, Pereyra [address] [place] [address] Chance De PA-C [address], Floor 4 [place] [address] [email or web address]. KAROL 07/03/2025 1:30 PM EST Office Visit [facility] Department of Neurosurgery [address] [place] [address] Chance De PA-C [address], [address] 4 [place] [address] [email or web address]. KAROL 07/17/2025 1:00 PM EST [facility] [address] [place] [address] Meghan Duarte, AuD 75 [place] [address] [email or web address] 07/17/2025 1:45 PM EST [facility] [address] [place] [address] Meghan Duarte, AuD 75 [place] [address] [email or web address] documented as of this encounter Visit Diagnoses Not on filedocumented in this encounter Additional Health Concerns Assessment Noted Time PHQ-2 Depression Total Score: 0 03/02/20 23 12:04 PM EDT documented as of this encounter Care Teams Matchbook Maker Relationship Specialty Start Date End Date Iris Serna MD [address] [place] [phone] (Work) PCP - General Family Medicine 04/26/20 documented as of this encounter Additional Source Comments The information contained in this document represents components of the legal health record. It is not the complete legal health record.[facility]
--- OUTSIDE RECORDS SUMMARY | 2024-11-30 09:44 | XMS_ITS | Encounter Summary ---
Author Organization [facility] Address [address] [place] [address] Phone Care Team Providers Care Manufacturing Business Analyst Name Role Phone Iris Serna MD Primary Care Provider +1 -[phone] Encounter Details Date Type Department Care Team (Late st Contact Info) Description 09/05/2023 Ancillary Orders [facility] 75 [place] [address] Jalyn Dugan, CERTIFIED CODING SPECIALIST [address] [facility], [address] [place] [address] [email or web address] Meralgia paresthetica, unspecified laterality (Primary Dx) Social [...] Procedure Pass [facility] MR Imaging, Hafsa [address] [place] [address] 05/29/2025 1:20 PM EDT Telemedicine [facility] Endocrine, Diabetes, and Hypertension [address] [address] Johnathan Lange MD [address] [place] [address] Endocrinology, Diabetes and Hypertension, [facility] [place] [address] [email or web address] 07/03/2025 12:40 PM EST Appointment [facility] MR Walker, Hafsa [address] [place] [address] Chance De PA-C 60 [facility], Floor 4 [place] [address] [email or web address]. KAROL 07/03/2025 1:30 PM EST Office Visit [facility] Department of Neurosurgery [address] [place] [address] Chance De PA-C 60 [facility], Floor 4 [place] [address] [email or web address]. KAROL 07/17/2025 1:00 PM EST Evaluation [facility] Multispecialty [address] [place] [address] Meghan Duarte, AuD 75 [place] [address] [email or web address] 07/17/2025 1:45 PM EST [facility] [address] [place] [address] Meghan Duarte, AuD 75 [place] [address] [email or web address] documented as of this encounter Results * US Thyroid Gland (09/08/2023 11:03 AM EST) Anatomical Region Laterality Modality Neck, Head, Chest Ultrasound 09/08/2023 11:0 5 AM EST Impressions 09/08/2023 11:32 AM EST 1. ??Diffusely heterogeneous thyroid with unchanged subcentimeter nodules. Narrative 09/08/2023 11:32 AM EST US THYROID GLAND Referring clinician's provided indication for this examination in [facility]: Follow Up Limited Survey TECHNIQUE: Thyroid/Neck [...] clinician's provided indication for this examination in [facility]:Follow Up Limited Survey TECHNIQUE: Thyroid/Neck Ultrasound [...] heterogeneous thyroid with unchanged subcentimeternodules. Jalyn Dugan CERTIFIED CODING SPECIALIST IMG US THYROI D documented in this encounter Visit Diagnoses Diagnosis Meralgia paresthetica, unspecified laterality- Primary Meralgia paresthetica, unspecified laterality documented in this encounter Additional Health Concerns Assessment Noted Time PHQ-2 Depression Total Score: 0 03/02/20 23 12:04 PM EDT documented as of this encounter Care Teams Manufacturing Business Analyst Relationship Specialty Start Date End Date Iris Serna MD [address] [place] [address] PCP - General Family Medicine 04/26/20 documented as of this encounter Additional Source Comments The information contained in this document represents components of the legal health record. It is not the complete legal health record.[facility]
--- OUTSIDE RECORDS SUMMARY | 2024-11-30 09:44 | XMS_ITS | Encounter Summary ---
Author Organization [facility] Address [address] [place] [address] Phone Care Team Providers Care Student Life Dean Name Role Phone Iris Serna MD Primary Care Provider +1 -[phone] Encounter Details Date Type Department Care Team (Late st Contact Info) Description 08/30/[address] [facility] MR Imaging, Pereyra 60 [place] [address] Social History Tobacco Use Types Packs/Day Years [...] Contact Info) Description 09/14/[address] [facility] MR Imaging, Pereyra 60 [place] [address] 05/29/2025 1:[address] [facility] Endocrine, Diabetes, and Hypertension [address] [place] [address] Johnathan Lange MD [address] [place] [address] Endocrinology, Diabetes and Hypertension, [facility]-2 [place] [address] [email or web address] 07/03/2025 12:[address] [facility] MR Imaging, Pereyra [address] [place] [address] Chance De PA-C [address], Floor 4 [place] [address] [email or web address]. [email or web address] 07/03/2025 1:30 PM EST Office Visit [facility] Department of Neurosurgery [address] [place] [address] Chance De PA-C [address], Floor 4 [place] [address] [email or web address]. KAROL 07/17/2025 1:00 PM EST Evaluation [facility] Multispecialty [address] [place] [address] Meghan Duarte, AuD 75 [place] [address] [email or web address] 07/17/2025 1:45 PM EST [facility] [address] [place] [address] Meghan Duarte, AuD 75 [place] [address] [email or web address] documented as of this encounter Visit Diagnoses Not on filedocumented in this encounter Additional Health Concerns Assessment Noted Time PHQ-2 Depression Total Score: 0 07/01/20 21 1:15 PM EST documented as of this encounter Care Teams Student Life Dean Relationship Specialty Start Date End Date Iris Serna MD [address] [place] [address] PCP - General Family Medicine 04/26/20 documented as of this encounter Additional Source Comments The information contained in this document represents components of the legal health record. It is not the complete legal health record.[facility]
--- OUTSIDE RECORDS SUMMARY | 2024-11-30 09:44 | XMS_ITS | Encounter Summary ---
Author Organization [facility] Address [address] [place] [address] Phone Care Team Providers Care Behavioral Medical Director Name Role Phone Iris Serna MD Primary Care Provider [phone] [phone] Encounter Details Date Type Department Care Team (Late st Contact Info) Description 07/11/2020 Procedure Pass [facility] Periop [address] [place] [address] Social History Tobacco Use Types Packs/Day Years [...] st Contact Info) Description 09/14/2024 Procedure Pass [facility] MR Imaging, Pereyra [address] [place] [address] 05/29/2025 1:20 PM EDT Telemedicine [facility] Endocrine, Diabetes, and Hypertension [address] [place] [address] Johnathan Lange MD [address] [place] [address] Endocrinology, Diabetes and Hypertension, [facility]-2 [place] [address] [email or web address] 07/03/2025 12:40 PM EST Appointment [facility] MR Imaging, Pereyra [address] [place] [address] Chance De PA-C [address], Floor 4 [place] [address] [email or web address]. [email or web address] 07/03/2025 1:30 PM EST Office Visit [facility] Department of Neurosurgery [address] [place] [address] Chance De PA-C [address], Floor 4 [place] [address] [email or web address] 07/17/2025 1:00 PM EST Evaluation [facility] [address] [place] [address] Meghan Duarte, AuD 75 [place] [address] [email or web address] 07/17/2025 1:45 PM EST [facility] [address] [place] [address] Meghan Duarte, AuD [address] [place] [address] [email or web address] documented as of this encounter Visit Diagnoses Not on filedocumented in this encounter Additional Health Concerns Assessment Noted Time PHQ-2 Depression Total Score: 0 04/16/20 20 12:22 PM EDT documented as of this encounter Care Teams Behavioral Medical Director Relationship Specialty Start Date End Date Iris Serna MD [address] [place] [address] PCP - General Family Medicine 04/26/20 documented as of this encounter Additional Source Comments The information contained in this document represents components of the legal health record. It is not the complete legal health record.[facility]
--- OUTSIDE RECORDS SUMMARY | 2024-11-30 09:44 | XMS_ITS | Encounter Summary ---
Author Organization [facility] Address [address] [place] [address] Phone Care Team Providers Care Head Of Business Development Name Role Phone Iris Serna MD Primary Care Provider [phone] Encounter Details Date Type Department Care Team (Late st Contact Info) Description 01/07/2021 Procedure Pass [facility] Bit Welder [address] [address] Social History Tobacco Use Types Packs/Day Years [...] st Contact Info) Description 09/14/2024 Procedure Pass [facility] MR Imaging, Pereyra [address] [place] [address] 05/29/2025 1:20 PM EDT Telemedicine [facility] Endocrine, Diabetes, and Hypertension [address] [place] [address] Johnathan Lange MD [address] [facility] Endocrinology, Diabetes and Hypertension, [facility]-[address] [place] [address] [email or web address] 07/03/2025 12:40 PM EST Appointment [facility] MR Imaging, Pereyra [address] [place] [address] Chance De PA-C [address], [address] 4 [place] [address] [email or web address]. KAROL 07/03/2025 1:30 PM EST Office Visit [facility] Department of Neurosurgery [address] [place] [address] Chance De PA-C [address], [address] 4 [place] [address] [email or web address]. [email or web address] 07/17/2025 1:00 PM EST Evaluation [facility] [address] [place] [address] Meghan Duarte, AuD 75 [place] [address] [email or web address] 07/17/2025 1:45 PM EST [facility] [address] [place] [address] Meghan Duarte, AuD 75 [place] [address] [email or web address] documented as of this encounter Visit Diagnoses Not on filedocumented in this encounter Additional Health Concerns Assessment Noted Time PHQ-2 Depression Total Score: 0 04/16/20 20 12:22 PM EDT documented as of this encounter Care Teams Head Of Business Development Relationship Specialty Start Date End Date Iris Serna MD [address] [place] [address] PCP - General Family Medicine 04/26/20 documented as of this encounter Additional Source Comments The information contained in this document represents components of the legal health record. It is not the complete legal health record.[facility]
--- OUTSIDE RECORDS SUMMARY | 2024-11-30 09:44 | XMS_ITS | Encounter Summary ---
Author Organization [facility] Address [address] [place] [address] [place] [address] Phone Care Team Providers Care Pipe Foreman Name Role Phone Derrick Donovan MD Primary Care Provider Iris Serna MD Primary Care Provider [phone] Encounter Details Date Type Department Care Team (Late st Contact Info) Description 10/06/2016 Transcribe Orders [facility] Endocrine, Diabetes, and Hypertension [address] [address] Ronna Hancock 221 [facility] [place] [address] [email or web address] Thyroid nodule (Primary Dx) Social History Tobacco [...] Description 09/14/2024 Procedure Pass [facility] MR Imaging, Pereyra [address] [place] [address] 05/29/2025 1:20 PM EDT Telemedicine [facility] Endocrine, Diabetes, and Hypertension [address] [address] Johnathan Lange MD 221 [facility] Endocrinology, Diabetes and Hypertension, RF[facility]-[address] [place] [address] [email or web address] 07/03/2025 12:40 PM EST Appointment [facility] MR Imaging, Pereyra [address] [place] [address] Chance De PA-C [address], [address] 4 [place] [address] [email or web address]. KAROL 07/03/2025 1:30 PM EST Office Visit [facility] Department of Neurosurgery [address] [place] [address] Chance De PA-C [address], Floor 4 [place] [address] [email or web address]. KAROL 07/17/2025 1:00 PM EST [facility] 20 [place] [address] Meghan Duarte, AuD [address] [place] [address] [email or web address] 07/17/2025 1:45 PM EST [facility] 20 [place] [address] Meghan Duarte, AuD 75 [place] [address] [email or web address] documented as of this encounter Visit Diagnoses Diagnosis Thyroid nodule- Primary Nontoxic uninodular goiter documented in this encounter Care Teams Pipe Foreman Relationship Specialty Start Date End Date Derrick Donovan MD [address] [place] [address] PCP - General 02/21/14 04/25/20 Iris Serna MD [address] [place] [address] PCP - General Family Medicine 04/26/20 documented as of this encounter Additional Source Comments The information contained in this document represents components of the legal health record. It is not the complete legal health record.[facility]
--- OUTSIDE RECORDS SUMMARY | 2024-11-30 09:45 | XMS_ITS | Encounter Summary ---
Author Organization [facility] Address [address] [place] [address] Phone Care Team Providers Care Field Artillery Operations Specialist Name Role Phone Derrick Donovan MD Primary Care Provider Iris Serna MD Primary Care Provider [phone] Encounter Details Date Type Department Care Team (Late st Contact Info) Description 09/26/2019 Procedure Pass [facility] MR Imaging, Pereyra [address] [place] [address] Social History Tobacco Use Types Packs/Day Years [...] [facility] MR Imaging, Pereyra [address] [place] [address] 05/29/2025 1:20 PM EDT Telemedicine [facility] Endocrine, Diabetes, and Hypertension [address] [place] [address] Johnathan Lange MD [address] [place] [address] Endocrinology, Diabetes and Hypertension, B-2 [place] [address] [email or web address] 07/03/2025 12:40 PM EST Appointment [facility] MR Imaging, Pereyra [address] [place] [address] Chance De PA-C [address], [address] 4 [place] [address] [email or web address] KAROL 07/03/2025 1:30 PM EST Office Visit [facility] Department of Neurosurgery [address] [place] [address] Chance De PA-C [address], [address] 4 [place] [address] [email or web address]. KAROL 07/17/2025 1:00 PM EST [facility] [address] [place] [address] Meghan Duarte, AuD 75 [place] [address] [email or web address] 07/17/2025 1:45 PM EST [facility] [address] [place] [address] Meghan Duarte, AuD 75 [place] [address] [email or web address] documented as of this encounter Visit Diagnoses Not on filedocumented in this encounter Additional Health Concerns Assessment Noted Time PHQ-2 Depression Total Score: 0 06/13/20 19 12:35 PM EDT documented as of this encounter Care Teams Field Artillery Operations Specialist Relationship Specialty Start Date End Date Derrick Donovan MD [address] [place] [address] PCP - General 02/21/14 04/25/20 Iris Serna MD [address] [place] [address] PCP - General Family Medicine 04/26/20 documented as of this encounter Additional Source Comments The information contained in this document represents components of the legal health record. It is not the complete legal health record.[facility]
--- OUTSIDE RECORDS SUMMARY | 2024-11-30 09:45 | XMS_ITS | Encounter Summary ---
Author Organization [facility] Address [address] [facility] [address] [place] [address] Phone Care Team Providers Care Emergency Management Coordinator Name Role Phone Iris Serna MD Primary Care Provider [phone] Encounter Details Date Type Department Care Team (Late st Contact Info) Description 05/01/2020 Transcribe Orders [facility] 75 [place] [address] Fabienne Goss [address] [place] [address] [email or web address] Social History Tobacco Use Types Packs/Day Years [...] st Contact Info) Description 09/14/2024 Procedure Pass [facility] MR Imaging, Pereyra [address] [place] [address] 05/29/2025 1:20 PM EDT Telemedicine [facility] Endocrine, Diabetes, and Hypertension [address] [place] [address] Johnathan Lange MD [address] [place] [address] Endocrinology, Diabetes and Hypertension, RFB-2 [place] [address] [email or web address] 07/03/2025 12:40 PM EST Appointment [facility] MR Imaging, Pereyra [address] [place] [address] Chance De PA-C [address], [address] 4 [place] [address] [email or web address]. KAROL 07/03/2025 1:30 PM EST Office Visit [facility] Department of Neurosurgery [address] [place] [address] Chance De PA-C [address], [address] 4 [place] [address] [email or web address]. KAROL 07/17/2025 1:00 PM EST [facility] [place] [address] Meghan Duarte, AuD 75 [place] [address] [email or web address] 07/17/2025 1:45 PM EST [facility] [address] [place] [address] Meghan Duarte, AuD 75 [place] [address] [email or web address] documented as of this encounter Results * US Pelvis Outside (No Interpretation) (05/01/2020 2:30 PM EDT) N[facility]ative [facility] - 05/01/2020 2:30 PM EDT This study is for PACS storage only and not for interpretation. Kole Romeo MD IMG OUTSIDE IMAGING W/OUT INTERPRETATION [facility] * CT Abdomen/Pelvis Outside (No Interpretation) (05/01/2020 2:30 PM EDT) Narrative [facility] - 05/01/2020 2:30 PM EDT This study is for PACS storage only and not for interpretation. Kole Rmoeo MD IMG OUTSIDE IMAGING W/OUT INTERPRETATION Performing Organization Address [facility] de Phone Number [facility] * CT Abdomen/Pelvis Outside (No Interpretation) (05/01/2020 2:30 PM EDT) Narrative [facility] - 05/01/2020 2:30 PM EDT This study is for PACS storage only and not for interpretation. Kole Romeo MD IMG OUTSIDE IMAGING W/OUT INTERPRETATION Performing Organization Address [facility] de Phone Number [facility] documented in this encounter Visit Diagnoses Not on filedocumented in this encounter Additional Health Concerns Assessment Noted Time PHQ-2 Depression Total Score: 0 04/16/20 20 12:22 PM EDT documented as of this encounter Care Teams Emergency Management Coordinator Relationship Specialty Start Date End Date Iris Serna MD [address] [place] [address] PCP - General Family Medicine 04/26/20 documented as of this encounter Additional Source Comments The information contained in this document represents components of the legal health record. It is not the complete legal health record.[facility]
--- OUTSIDE RECORDS SUMMARY | 2024-11-30 09:45 | XMS_ITS | Clinical Summary ---
Author Organization [facility] Address [address] [place] [phone] Phone Care Team Providers Care Retail Sales Lead Name Role Phone Iris Serna MD Primary Care Provider [phone] Allergies No known active allergies Medications methIMAzole (TAPAZOLE) 5 mg tabletIndicati ons:GRAVE'S Take 1.5 tablets (7.5 mg total) by mouth 1 (one) time each day. Active oxyBUTYnin (DITROPAN) 5 mg tabletIndicati ons:increased urinary frequency Take 1 tablet (5 mg [...] time each day at the same time. 5 025 Active vancomycin 1,250 mg in sodium chloride 0.9 % 250 mL IVPB Infuse 1,250 mg into a venous catheter every 12 (twelve) hours. 5 025 Active senna-docusate (PERICOLACE) 8.6-50 mg per tablet Take 1 tablet by mouth 2 (two) times a day. Take in conjunction with narcotic pain medication to prevent constipation. 30 tablet 10/28/2024 1:29 PM EST 5 026 Active methocarbamoL (ROBAXIN) 750 mg tablet Take 1 tablet (750 mg total) by mouth every 6 (six) hours if needed for muscle spasms for up to 10 days. 30 tablet 10/28/2024 1:29 PM EST Active aspirin 81 mg EC tablet Take 1 tablet (81 mg total) by mouth 2 (two) times a day. Take this medication until completion to prevent postoperative blood clots. 84 tablet 10/28/2024 1:29 PM EST 5 026 Active HYDROmorphone (DILAUDID) 2 mg tabletIndicati ons:Infection of prosthetic joint, initial encounter ([facility]) Take 1 tablet (2 mg total) by mouth every 4 (four) hours if needed for severe pain. Max Daily Amount: 12 mg 32 tablet 10/28/2024 2:13 PM EST Active pantoprazole (PROTONIX) 40 mg EC tablet Take 1 tablet (40 mg total) by mouth 1 (one) time each day before breakfast for 15 days. Do not crush, chew, or split. 15 tablet 10/28/2024 1:29 PM EST 5 025 meloxicam (MOBIC) 15 mg tablet Take 1 tablet (15 mg total) by mouth 1 (one) time each day for 15 days. 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 [address] [facility] [place] [address] Ventura Isaacs MD Barnett, John T, MD 10/26/2024 10:00 AM EST - 10/26/2024 12:[address] [facility] [address] [facility] [place] [address] Pako Aguilar MD INCISION DRAINAGE LEFT KNEE, POLY EXCHANGE 10/24/2024 12:36 PM EST - 10/28/2024 2:07 PM EST Hospital En[facility] [id number] [facility] 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 For example, exceptional children teacher assistant or elderly care for an older adult? [...] AM EDT Office Visit Infectious Disease - [facility] [address] [place] [phone] Nicolle Kelly MD [address] [place] [address] Health Maintenance Due Date Last Done Comments Breast Cancer Screening 1960 Pneumococcal Vaccine: 50+ Years (1 of 1 - PCV) 2008 Zoster Vaccines (1 of 2) 2008 RSV Immunization Adult Patients (1 - Risk 60-74 years 1-dose series) 2018 COVID-19 Vaccine (3 - Pfizer risk series) 11/09/2020 10/12/2020, 09/21/2020 Colorectal Cancer Screening: Colonoscopy 07/18/2024 Depression Screening 07/18/2024 Hepatitis C Screening 07/18/2024 Osteoporosis Screening (Bone Density Screening) 07/18/2024 Influenza Vaccine (Season Ended) 2025 09/29/2018 Social Influencers of Health Screening 08/03/2025 08/03/2024 [...] age to complete this topic Meningococcal B Vaccine Aged Out No l onger eligible based on patient's age to complete this topic RSV Immunization Patients Under 20 months Aged Out No longer eligible b ased on patient's age to complete this topic Varicella Vaccines Aged Out No longer eligible based on patient's age to complete this topic Medical Devices Implanted Type Area Bandage Winding Machine Operator Device Identifier Shelf Expiration Date Model / Serial / Lot Component Femoral Sz4 Triathlon Cruc Ret [place] Chrome Lt - [id number] Implanted:Qty : 1 on 08/03/2024 by Pako Aguilar MD at [facility] Joints Knee Left: Knee [employer] [id number] 03/12/2029 5517-F-40 1 / / [id number] Knee Bsplt Triathlon Ti Sz 4 - [id number] Implanted:Qty : 1 on 08/03/2024 by Pako Aguilar MD at [facility] Joints Knee Left: Knee [employer] [id number] 05/04/2029 5536-B-40 0 / / [id number] Knee Ptla Asym Tritanium 29x9 - [id number] Implanted:Qty : 1 on 08/03/2024 by Pako Aguilar MD at [facility] Joints Knee Left: Knee [employer] [id number] 04/27/2029 5552-L-29 9 / / [id number] Knee Tib Insrt Brng Sz 4 9mm - [id number] Implanted:Qty : 1 on 10/26/2024 by Pako Aguilar MD at [facility] Joints Knee Left: Knee [employer] [id number] 05/17/2029 5531-G-40 9 / / [id number] Explanted Type Area Bandage Winding Machine Operator Device Identifier Shelf Expiration Date Model / Serial / Lot Knee Tib Insrt Brng Sz 4 9mm - [id number] Implanted:Qty : 1 on 08/03/2024 by Pako Aguilar MD at [facility] Explanted:Qty : 1 on 10/26/2024 by Pako Aguilar MD at [facility] Joints Knee Left: Knee [employer] [id number] 03/23/2029 5531-G-40 9 / / [id number] Procedures [...] Insert PICC line (10/28/2024 11:25 AM EST) Narrative Janessa Evans RN - 10/28/2024 11:25 AM EST Janessa Evans RN ? 10/28/2024 12:32 PM PICC Line Insertion Procedure Note Procedure: Insertion of #4 FR/18G PICC Indications: ??Commercial Door Installer IV therapy Procedure Details Informed consent was [...] LAB HEMETOLOGY METHOD 10/28/2024 5:54 AM EST [facility] RBC 3.58(L) 4.20 - 5.40 M/mcL LAB HEMETOLOGY METHOD 10/28/2024 5:54 AM EST [facility] Hemoglobin 10.6(L) 12.5 - 16.0 g/dL LAB HEMETOLOGY METHOD 10/28/2024 5:54 AM [facility] Hematocrit 31.0(L) 37.0 - 47.0 % LAB HEMETOLOGY METHOD 10/28/2024 5:54 AM [facility] MCV 86.7 78.0 - 100.0 FL LAB HEMETOLOGY METHOD 10/28/2024 5:54 AM EST [facility] MCH 29.7 25.0 - 33.0 pcg LAB HEMETOLOGY METHOD 10/28/2024 5:54 AM [facility] MCHC 34.3 32.0 - 36.0 g/dL LAB HEMETOLOGY METHOD 10/28/2024 5:54 AM [facility] RDW 12.4 12.1 - 16.2 % LAB HEMETOLOGY METHOD 10/28/2024 5:54 AM [facility] Platelets 263 150 - 450 K/mcL LAB HEMETOLOGY METHOD 10/28/2024 5:54 AM [facility] MPV 7.4 7.4 - 11.4 FL LAB HEMETOLOGY METHOD 10/28/2024 5:54 AM [facility] Neutrophils Relative 71.1 44.0 - 74.0 % LAB HEMETOLOGY METHOD 10/28/2024 5:54 AM [facility] Lymphocytes Relative 18.3(L) 20.0 - 48.0 % LAB HEMETOLOGY METHOD 10/28/2024 5:54 AM [facility] Monocytes Relative 7.7 2.0 - 12.0 % LAB HEMETOLOGY METHOD 10/28/2024 5:54 AM [facility] Eosinophils Relative 2.3 0.0 - 6.0 % LAB HEMETOLOGY METHOD 10/28/2024 5:54 AM [facility] Basophils Relative 0.6 0.0 - 2.0 % LAB HEMETOLOGY METHOD 10/28/2024 5:54 AM [facility] Neutrophils Absolute 4.30 1.80 - 7.80 K/mcL LAB HEMETOLOGY METHOD 10/28/2024 5:54 AM [facility] Lymphocytes Absolute 1.10 1.00 - 3.20 K/mcL LAB HEMETOLOGY METHOD 10/28/2024 5:54 AM EST [facility] Monocytes Absolute 0.50 0.00 - 0.80 K/mcL LAB HEMETOLOGY METHOD 10/28/2024 5:54 AM EST [facility] Eosinophils Absolute 0.10 0.00 - 0.50 K/mcL LAB HEMETOLOGY METHOD 10/28/2024 5:54 AM EST [facility] Basophils Absolute 0.00 0.00 - 0.20 K/mcL LAB HEMETOLOGY METHOD 10/28/2024 5:54 AM EST [facility] Blood Venous blood specimen / Unknown Venipuncture / Unknown 10/28/2024 5:29 AM EST 10/28/2024 5:35 AM EST Miguelangel PHIPPS LAB BLOOD ORDERABLES Final Result Performing Organization Address City/[facility]/ZIP Co de Phone Number [facility] [address] [place] [address], [place] [phone] * Vancomycin, trough (10/28/2024 5:29 AM EST) Pathologist [facility] Vancomycin Trough 13.1 10.0 - 20.0 mcg/mL LAB CHEMISTRY METHOD 10/28/2024 6:15 AM EST [facility] Blood Venous blood specimen / Unknown Venipuncture / Unknown 10/28/2024 5:29 AM EST 10/28/2024 5:35 AM EST Pako Aguilar MD LAB BLOOD ORDERABLES Final Resu lt Performing Organization Address City/[facility]/ZIP Co de Phone Number [facility] [address] [place] [address], [place] [phone] * (ABNORMAL) Basic metabolic panel (10/28/2024 5:29 AM EST) Only the most recent of5 resultswithin the time period is included. Pathologist [facility] Sodium 141 135 - 145 mmol/L LAB CHEMISTRY METHOD 10/28/2024 6:17 AM [facility] Potassium 4.1 3.5 - 5.1 mmol/L LAB CHEMISTRY METHOD 10/28/2024 6:17 AM [facility] Chloride 106 98 - 107 mmol/L LAB CHEMISTRY METHOD 10/28/2024 6:17 AM [facility] CO2 28 24 - 32 mmol/L LAB CHEMISTRY METHOD 10/28/2024 6:17 AM [facility] Anion Gap 7 5 - 14 LAB CHEMISTRY METHOD 10/28/2024 6:17 AM [facility] Glucose 110(H) 70 - 99 mg/dL LAB CHEMISTRY METHOD 10/28/2024 6:17 AM [facility] BUN 9 7 - 17 mg/dL LAB CHEMISTRY METHOD 10/28/2024 6:17 AM [facility] Creatinine 0.60 0.50 - 1.00 mg/dL LAB CHEMISTRY METHOD 10/28/2024 6:17 AM [facility] eGFR 100 >=60 mL/min/1. 73m2 LAB CHEMISTRY METHOD 10/28/2024 6:17 AM [facility] Comment:Calculation based on the??Chronic Kidney Disease Epidemiology Collaboration (CKD-EPI) equation refit??without adjustment for race. BUN/Creatinine Ratio 15.0 12.0 - 20.0 LAB CHEMISTRY METHOD 10/28/2024 6:17 AM EST [facility] Calcium 8.5 8.4 - 10.2 mg/dL LAB CHEMISTRY METHOD 10/28/2024 6:17 AM [facility] Blood Venous blood specimen / Unknown Venipuncture / Unknown 10/28/2024 5:29 AM EST 10/28/2024 5:35 AM EST us Chivo PHIPPS LAB BLOOD ORDERABLES Final Res ult [facility] [address] [place] [address], [place] [phone] * Magnesium (10/27/2024 5:43 AM EST) Only the most recent of3 resultswithin the time period is included. Magnesium 1.8 1.7 - 2.8 mg/dL LAB CHEMISTRY METHOD 10/27/2024 6:41 AM EST [facility] Blood Venous blood specimen / Unknown Venipuncture / Unknown 10/27/2024 5:43 AM EST 10/27/2024 6:00 AM EST Chance Lea NP LAB BLOOD ORDERABLES Final Resu lt [facility] [address] [place] [address], * TH AN LMA(NO CHARGE) (10/26/2024 10:35 AM EST) Narrative Barbie Torres CRNA - 10/26/2024 10:35 AM EST Barbie Torres CRNA ? 10/26/2024 10:36 AM General Information and Staff Patient location during procedure: OR Performed: resident/ACADEMIC HOSPITALIST/CAA Performed by: Barbie Torres CRNA Authorized by: Ventura Isaacs MD ?? Intubation Urgency: elective Final Airway Details Number of attempts at approach: 1Final airway type: LMA Indications and Patient Condition Preoxygenated: yes Soft Tissue Damage: No Dentition Unchanged: Yes Patient position: neutral Ventura Isaacs MD ANESTHESIA ORDERABLES Fin al Result * Culture tissue with gram stain (10/26/2024 10:07 AM EST) Only the most recent of3 resultswithin the time period is included. Culture, Tissue No Growth aerobically/a naerobically after 14 days incubation. 11/09/2024 8:00 AM EDT [facility] Gram Stain Result Many WBCs present 11/09/2024 8:00 AM EDT [facility] Gram Stain Result No organisms seen 11/09/2024 8:00 AM EDT [facility] Tissue Structure of left knee region / Unknown 10/26/2024 10:07 AM EST 10/26/2024 10:45 AM EST us Pako Aguilar MD LAB MICROBIOLOGY - GENERAL ORDE RABARIELLA Final Result Performing Organization Address City/[facility]/ZIP Co de Phone Number [facility] [address] [place] [address], [place] [phone] * Culture wound deep (10/26/2024 10:06 AM EST) Only the most recent of3 resultswithin the time period is included. Culture, Wound No Growth aerobically/a naerobically after 14 days incubation. 11/09/2024 8:21 AM EDT [facility] Gram Stain Result Few WBCs present 11/09/2024 8:21 AM EDT [facility] Gram Stain Result No organisms seen 11/09/2024 8:21 AM EDT [facility] Swab Structure of left knee region / Unknown 10/26/2024 10:06 AM EST 10/26/2024 10:44 AM EST Comment:EXT: [id number] us Pako Aguilar MD LAB MICROBIOLOGY - GENERAL ORDJamar MERRITT Final Result Performing Organization Address City/[facility]/ZIP Co de Phone Number [facility] [address] [place] [address], [place] [phone] * (ABNORMAL) Complete blood count (10/26/2024 5:54 AM EST) Only the most recent of2 resultswithin the time period is included. WBC 6.1 4.0 - 10.5 K/mcL LAB HEMETOLOGY METHOD 10/26/2024 6:09 AM [facility] RBC 4.01(L) 4.20 - 5.40 M/mcL LAB HEMETOLOGY METHOD 10/26/2024 6:09 AM [facility] Hemoglobin 11.9(L) 12.5 - 16.0 g/dL LAB HEMETOLOGY METHOD 10/26/2024 6:09 AM [facility] Hematocrit 34.8(L) 37.0 - 47.0 % LAB HEMETOLOGY METHOD 10/26/2024 6:09 AM [facility] MCV 86.8 78.0 - 100.0 FL LAB HEMETOLOGY METHOD 10/26/2024 6:09 AM [facility] MCH 29.7 25.0 - 33.0 pcg LAB HEMETOLOGY METHOD 10/26/2024 6:09 AM [facility] MCHC 34.3 32.0 - 36.0 g/dL LAB HEMETOLOGY METHOD 10/26/2024 6:09 AM [facility] RDW 12.6 12.1 - 16.2 % LAB HEMETOLOGY METHOD 10/26/2024 6:09 AM [facility] Platelets 265 150 - 450 K/mcL LAB HEMETOLOGY METHOD 10/26/2024 6:09 AM [facility] MPV 8.0 7.4 - 11.4 FL LAB HEMETOLOGY METHOD 10/26/2024 6:09 AM [facility] Blood Venous blood specimen / Unknown Venipuncture / Unknown 10/26/2024 5:54 AM EST 10/26/2024 6:02 AM EST us [employer] LAB BLOOD ORDERABLES Final Res ult [facility] [address] [place] [phone], * ECG 12 lead (10/24/2024 8:07 PM EST) Ventricular Rate ECG 80 BPM GEMUSE Atrial Rate 80 BPM GEMUSE P-R Interval 134 ms GEMUSE QRS Duration 76 ms GEMUSE Q-T Interval 376 ms GEMUSE QTc 433 ms GEMUSE P Wave [place] 47 degrees GEMUSE R [place] -3 degrees GEMUSE T [place] 25 degrees GEMUSE ECG Interpretation Normal sinus rhythm Poor R wave progression Abnormal ECG No previous ECGs available Confirmed by JAY ROSENTHAL ([id number]) on 10/25/2024 6:10:28 PM GEMUSE 10/24/2024 8:07 PM EST 10/25/2024 6:10 PM EST Chance Lea NP ECG ORDERABLES Final Result GEMUSE * (ABNORMAL) Prothrombin time with INR (10/24/2024 8:07 PM EST) Protime 13.8(H) 10.5 - 13.3 sec LAB COAGULATION METHOD 10/24/2024 8:35 PM EST [facility] INR 1.2(H) 0.8 - 1.1 LAB COAGULATION METHOD 10/24/2024 8:35 PM EST [facility] Blood Venous blood specimen / Unknown Venipuncture / Unknown 10/24/2024 8:07 PM EST 10/24/2024 8:14 PM EST Narrative [facility] - 10/24/2024 8:35 PM EST Std. Therapy ?2.0-3.0 INR High Dose Therapy 3.0-4.5 INR Ranges may vary depending on clinical indications and protocol. [employer] LAB BLOOD ORDERABLES Final Res ult [facility] [address] [place] [id number], [place] [phone] * Type and screen (10/24/2024 8:07 PM EST) ABO Group O 10/24/2024 9:01 PM EST [facility] Rh Type Positive 10/24/2024 9:01 PM EST [facility] Antibody Screen Negative 10/24/2024 9:01 PM EST [facility] Blood Venous blood specimen / Unknown Venipuncture / Unknown 10/24/2024 8:07 PM EST 10/24/2024 8:14 PM EST us [employer] LAB BLOOD BANK TEST ORDERABLES Final Result [facility] [address] [place] [address], [place] [phone] * (ABNORMAL) Urinalysis with reflex microscopic and culture (10/24/2024 6:07 PM EST) Color, Urine Yellow Yellow, Colorless LAB URINALYSIS - AUTOMATED METHOD 10/24/2024 7:11 PM [facility] Clarity, Urine Hazy(A) Clear LAB URINALYSIS - AUTOMATED METHOD 10/24/2024 7:11 PM [facility] Specific [place] Urine 1.021 1.005 - 1.030 LAB URINALYSIS - AUTOMATED METHOD 10/24/2024 7:11 PM [facility] pH, Urine 5.0(A) 5.0 - 8.0 pH LAB URINALYSIS - AUTOMATED METHOD 10/24/2024 7:11 PM [facility] Leukocytes, Urine Small(A) Negative WBCs/mcL LAB URINALYSIS - AUTOMATED METHOD 10/24/2024 7:11 PM [facility] Nitrite, Urine Negative Negative LAB URINALYSIS - AUTOMATED METHOD 10/24/2024 7:11 PM [facility] Protein, Urine Negative Negative mg/dL LAB URINALYSIS - AUTOMATED METHOD 10/24/2024 7:11 PM [facility] Glucose, Urine Negative Negative mg/dL LAB URINALYSIS - AUTOMATED METHOD 10/24/2024 7:11 PM [facility] Ketones, Urine Negative Negative mg/dL LAB URINALYSIS - AUTOMATED METHOD 10/24/2024 7:11 PM [facility] Blood, Urine Negative Negative mg/dL LAB URINALYSIS - AUTOMATED METHOD 10/24/2024 7:11 PM [facility] RBC, Urine 1 0 - 3 /HPF LAB URINALYSIS - AUTOMATED METHOD 10/24/2024 7:11 PM [facility] WBC, Urine 6(H) 0 - 5 /HPF LAB URINALYSIS - AUTOMATED METHOD 10/24/2024 7:11 PM [facility] Squamous Epithelial, Urine 27(H) 0 - 5 /HPF LAB URINALYSIS - AUTOMATED METHOD 10/24/2024 7:11 PM [facility] Mucus, Urine Present(A) Not Present /HPF LAB URINALYSIS - AUTOMATED METHOD 10/24/2024 7:11 PM [facility] Urine Urine specimen obtained by clean catch procedure / Unknown Non-blood Collection / Unknown 10/24/2024 6:07 PM EST 10/24/2024 6:37 PM EST us Juan Miguel Mosquead MD LAB URINE ORDERABLES Final Result [facility] [address] [place] [address], [place] [phone] * Mccarthy urine culture tube (10/24/2024 6:07 PM EST) Extra Tube Hold for add-ons. 10/24/2024 8:01 PM EST [facility] Comment:Auto resulted. Urine Urine specimen obtained by clean catch procedure / Unknown Non-blood Collection / Unknown 10/24/2024 6:07 PM EST 10/24/2024 6:37 PM EST Juan Miguel Mosqueda MD LAB URINE ORDERABLES Final Result [facility] [address] [place] [address], [place] [phone] * Culture urine (10/24/2024 6:07 PM EST) Culture, Urine Mixed urogenital jeffry, no uropathogens present. Suggest repeat specimen, if clinically indicated. 10/26/2024 8:22 AM EST [facility] Urine Urine specimen obtained by clean catch procedure / Unknown Non-blood Collection / Unknown 10/24/2024 6:07 PM EST 10/24/2024 7:11 PM EST Juan Miguel Mosqueda MD LAB MICROBIOLOGY - G ENERAL ORDERABLES Final Result Performing Organization Address City/[facility]/ZIP Co de Phone Number [facility] [address] [place] [address], [place] [phone] * XR Chest 1 View (10/24/2024 5:54 PM EST) Anatomical Region Laterality Modality Body Radiographic Maria Esther ging 10/24/2024 6:34 PM EST Impressions 10/24/2024 6:35 PM EST FINDINGS/IMPRESSION: Lungs are clear. Heart is normal in size. Minimal dextroscoliosis in the spine. Report reviewed and signed by : Dr. Luis Mazariegos on 10/24/2024 6:35 PM. Workstation Name - [id number] -------- FINAL REPORT -------- Dictated By: Luis Mazariegos Dictated Date: 10/24/2024 18:34 ET Assigned Physician: Luis Mazariegos Reviewed and Electronically Signed By: Luis Mazariegos Signed Date: 10/24/2024 18:35 ET Workstation ID: [id number] Transcribed By: Self Edit Transcribed Date: 10/24/2024 [...] Mazariegos on 10/24/2024 6:35 PM.Workstation Name - [id number] -------- FINAL REPORT -------- Dictated By: Luis Mazariegos Dictated Date: 10/24/2024 18:34 ET Assigned Physician: Luis Mazariegos Reviewed and Electronically Signed By: Luis Mazariegos Signed Date: 10/24/2024 18:35 ET Workstation ID: [id number] Transcribed By: Self Edit Transcribed Date: 10/24/2024 18:34 ET Juan Miguel Mosqueda MD IMG XR PROCEDURES Fi nal Result * Respiratory virus panel molecular study (10/24/2024 5:26 PM EST) Adenovirus Detection by PCR Not Detected Not Detected LAB MICROBIOLOGY METHOD 10/24/2024 8:22 PM EST [facility] Influenza A PCR Not Detected Not Detected LAB MICROBIOLOGY METHOD 10/24/2024 8:22 PM EST [facility] Influenza B PCR Not Detected Not Detected, Invalid LAB MICROBIOLOGY METHOD 10/24/2024 8:22 PM EST [facility] Coronavirus 229E Not Detected Not Detected LAB MICROBIOLOGY METHOD 10/24/2024 8:22 PM EST [facility] Coronavirus HKU1 Not Detected Not Detected LAB MICROBIOLOGY METHOD 10/24/2024 8:22 PM EST [facility] Coronavirus OC43 Not Detected Not Detected LAB MICROBIOLOGY METHOD 10/24/2024 8:22 PM [facility] Coronavirus NL63 Not Detected Not Detected LAB MICROBIOLOGY METHOD 10/24/2024 8:22 PM [facility] Parainfluenza Virus 1 Not Detected Not Detected LAB MICROBIOLOGY METHOD 10/24/2024 8:22 PM [facility] Parainfluenza Virus 2 Not Detected Not Detected LAB MICROBIOLOGY METHOD 10/24/2024 8:22 PM [facility] Parainfluenza Virus 3 Not Detected Not Detected LAB MICROBIOLOGY METHOD 10/24/2024 8:22 PM [facility] Parainfluenza Virus 4 Not Detected Not Detected LAB MICROBIOLOGY METHOD 10/24/2024 8:22 PM [facility] RSV PCR Not Detected Not Detected LAB MICROBIOLOGY METHOD 10/24/2024 8:22 PM [facility] Human Metapneumovirus A and B Not Detected Not Detected LAB MICROBIOLOGY METHOD 10/24/2024 8:22 PM [facility] Rhinovirus/Entero virus Not Detected Not Detected LAB MICROBIOLOGY METHOD 10/24/2024 8:22 PM [facility] Bordetella pertussis Not Detected Not Detected LAB MICROBIOLOGY METHOD 10/24/2024 8:22 PM [facility] Bordetella parapertussis Not Detected Not Detected LAB MICROBIOLOGY METHOD 10/24/2024 8:22 PM [facility] Mycoplasma pneumo by PCR Not Detected Not Detected LAB MICROBIOLOGY METHOD 10/24/2024 8:22 PM [facility] Chlamydia pneumoniae Not Detected Not Detected LAB MICROBIOLOGY METHOD 10/24/2024 8:22 PM [facility] SARS COV-2 Not Detected Not Detected, Invalid LAB MICROBIOLOGY METHOD 10/24/2024 8:22 PM [facility] Swab Both anterior nares / Unknown Non-blood Collection / Unknown 10/24/2024 5:26 PM EST 10/24/2024 5:47 PM EST Juan Miguel Mosqueda MD LAB MICROBIOLOGY - G ENERAL ORDERABLES Final Result Performing Organization Address City/[facility]/ZIP Co de Phone Number [facility] [address] [place] [address], [place] [phone] * (ABNORMAL) Cell count with reflex differential, body fluid (10/24/2024 4:11 PM EST) Body Fluid Source Synovial 10/24/2024 5:36 PM EST [facility] Body Fluid Clarity Turbid 10/24/2024 5:36 PM EST [facility] Body Fluid Color Red 10/24/2024 5:36 PM EST [facility] Body Fluid RBC 3,940,350(H) 0 - 1 /mm3 LAB HEMETOLOGY METHOD 10/24/2024 5:36 PM EST [facility] Body Fluid Total Nucleated Cells 5,010(H) <150 /mm3 LAB HEMETOLOGY METHOD 10/24/2024 5:36 PM EST [facility] Synovial Fluid Structure of left knee region / Unknown Non-blood Collection / Unknown 10/24/2024 4:11 PM EST 10/24/2024 4:13 PM EST [employer] LAB BODY FLUIDS AND STOOLS ORD ERABLES Final Result Performing Organization Address City/[facility]/ZIP Co de Phone Number [facility] [address] [place] [address], [place] [phone] * Culture body fluid with gram stain (10/24/2024 4:11 PM EST) Fluid Culture No Growth aerobically/a naerobically after 14 days incubation. 11/09/2024 11:11 AM EDT [facility] Gram Stain Result Moderate WBCs present 11/09/2024 11:11 AM EDT [facility] Gram Stain Result No organisms seen 11/09/2024 11:11 AM EDT [facility] Synovial Fluid Structure of left knee region / Unknown Non-blood Collection / Unknown 10/24/2024 4:11 PM EST 10/24/2024 4:13 PM EST us [employer] LAB MICROBIOLOGY - GENERAL ORD ERABLES Final Result [facility] [address] [place] [address], [place] [phone] * (ABNORMAL) Differential body fluid (10/24/2024 4:11 PM EST) Fluid Neutrophils 83.0(H) <25.0 % 10/24/2024 6:23 PM EST [facility] Fluid Lymphocytes 11.0 <75.0 % 10/24/2024 6:23 PM EST [facility] Fluid Monocytes/Macrop hages 3.0 <70.0 % 10/24/2024 6:23 PM EST [facility] Fluid Eosinophils 3.0(H) 0.0 - 0.0 % 10/24/2024 6:23 PM EST [facility] Synovial Fluid Structure of left knee region / Unknown Non-blood Collection / Unknown 10/24/2024 4:11 PM EST 10/24/2024 4:13 PM EST us [employer] LAB BODY FLUIDS AND STOOLS ORD ERABLES Final Result [facility] [address] [place] [address], [place] [phone] * Crystal identification, body fluid (10/24/2024 4:11 PM EST) Crystals, Fluid Absent Absent 10/24/2024 6:05 PM EST [facility] Synovial Fluid Structure of left knee region / Unknown Non-blood Collection / Unknown 10/24/2024 4:11 PM EST 10/24/2024 4:13 PM EST us [employer] LAB BODY FLUIDS AND STOOLS ORD ERABLES Final Result [facility] [address] [place] [address], [place] [phone] * XR Knee 3 Views Left (10/24/2024 3:04 PM EST) Anatomical Region Laterality Modality Lower Extremities, Knee Left Radiogra phic Imaging 10/24/2024 3:57 PM EST Impressions 10/24/2024 3:58 PM EST Status post left total knee arthroplasty with intact surgical hardware and anatomic alignment. Report reviewed and signed by : Dr. Ta Leong on 10/24/2024 3:58 PM. Workstation Name - [id number] -------- FINAL REPORT -------- Dictated By: Ta Leong Dictated Date: 10/24/2024 15:57 ET Assigned Physician: Ta Leong Reviewed and Electronically Signed By: Ta Leong Signed Date: 10/24/2024 15:58 ET Workstation ID: [id number] Transcribed By: Self Edit Transcribed Date: 10/24/2024 [...] Leong on 10/24/2024 3:58 PM.Workstation Name - [id number] -------- FINAL REPORT -------- Dictated By: Ta Leong Dictated Date: 10/24/2024 15:57 ET Assigned Physician: Ta Leong Reviewed and Electronically Signed By: Ta Leong Signed Date: 10/24/2024 15:58 ET Workstation ID: [id number] Transcribed By: Self Edit Transcribed Date: 10/24/2024 15:57 ET us Juan Miguel Mosqueda MD IMG XR PROCEDURES [...] on 10/24/2024 2:09 PM. Workstation Name - [id number] -------- FINAL REPORT -------- Dictated By: Vishal Riddle Dictated Date: 10/24/2024 14:08 ET Assigned Physician: Vishal Riddle Reviewed and Electronically Signed By: Vishal Riddle Signed Date: 10/24/2024 14:09 ET Workstation ID: [id number] Transcribed By: Self Edit Transcribed Date: 10/24/2024 [...] Riddle on 10/24/2024 2:09 PM.Workstation Name - [id number] -------- FINAL REPORT -------- Dictated By: Vishal Riddle Dictated Date: 10/24/2024 14:08 ET Assigned Physician: Vishal Riddle Reviewed and Electronically Signed By: Vishal Riddle Signed Date: 10/24/2024 14:09 ET Workstation ID: [id number] Transcribed By: Self Edit Transcribed Date: 10/24/2024 14:08 ET us Juan Miguel Mosqueda MD CV VASCULAR PROCEDUR ES Final Result * Lactate, with reflex (10/24/2024 1:38 PM EST) LACTIC ACID 1.1 0.5 - 2.2 mmol/L LAB BLOOD GAS METHOD 10/24/2024 2:02 PM EST [facility] Blood Venous blood specimen / Unknown Venipuncture / Unknown 10/24/2024 1:38 PM EST 10/24/2024 1:48 PM EST us Juan Miguel Mosqueda MD LAB BLOOD ORDERABLES Final Result Performing Organization Address City/[facility]/ZIP Co de Phone Number [facility] [address] [place] [address], * Blood Culture, Peripheral Draw #1 (10/24/2024 1:38 PM EST) Only the most recent of2 resultswithin the time period is included. Culture, Blood No growth at 5 days 10/29/2024 3:01 PM EST [facility] Blood Venous blood specimen / Unknown Venipuncture / Unknown 10/24/2024 1:38 PM EST 10/24/2024 1:49 PM EST us Juan Miguel Mosqueda MD LAB MICROBIOLOGY - G ENERAL ORDERABLES Final Result Performing Organization Address [facility] Co de Phone Number [facility] [address] [place] [address], [place] [phone] * (ABNORMAL) Sedimentation rate (10/24/2024 1:38 PM EST) Sed Rate 49(H) 0 - 20 mm/hr LAB HEMETOLOGY METHOD 10/24/2024 2:11 PM EST [facility] Blood Venous blood specimen / Unknown Venipuncture / Unknown 10/24/2024 1:38 PM EST 10/24/2024 1:47 PM EST us Juan Miguel Mosqueda MD LAB BLOOD ORDERABLES Final Result Performing Organization Address City/[facility]/ZIP Co de Phone Number [facility] [address] [place] [address], [place] [phone] * (ABNORMAL) C-reactive protein (10/24/2024 1:38 PM EST) C-Reactive Protein 19.7(H) <=0.9 mg/dL LAB CHEMISTRY METHOD 10/24/2024 2:23 PM EST [facility] Blood Venous blood specimen / Unknown Venipuncture / Unknown 10/24/2024 1:38 PM EST 10/24/2024 1:47 PM EST us Juan Miguel Mosqueda MD LAB BLOOD ORDERABLES Final Result [facility] [address] [place] [address], [place] [phone] from Last 3 Months Insurance MEDICARE [facility] Advance Directives * Full Code - [...] currently active code status orders. Care Teams Retail Sales Lead Relationship Specialty Start Date End Date Iris Serna MD [address] [place] [address] PCP - General Internal Medicine 08/02/24
--- OUTSIDE RECORDS SUMMARY | 2024-11-30 09:45 | XMS_ITS | Encounter Summary ---
Author Organization [facility] Address [address] [place] [address] Phone Care Team Providers Care Piercing Machine Operator Name Role Phone Derrick Donovan MD Primary Care Provider Iris Serna MD Primary Care Provider [phone] Encounter Details Date Type Department Care Team (Late st Contact Info) Description 09/28/2019 Procedure Pass [facility] MR Imaging, Pereyra [address] [place] [address] Social History Tobacco Use Types Packs/Day Years [...] st Contact Info) Description 09/14/2024 Procedure Pass [facility] MR Imaging, Pereyra [address] [place] [address] 05/29/2025 1:20 PM EDT Telemedicine [facility] Endocrine, Diabetes, and Hypertension [address] [place] [address] Johnathan Lange MD [address] [place] [address] Endocrinology, Diabetes and Hypertension, B[address] [place] [address] [email or web address] 07/03/2025 12:40 PM EST Appointment [facility] MR Imaging, Pereyra [address] [place] [address] Chance De PA-C [address] [place] [address] [email or web address] KAROL 07/03/2025 1:30 PM EST Office Visit [facility] Department of Neurosurgery [address] [place] [address] Chance De PA-C [address] [place] [address] [email or web address] 07/17/2025 1:00 PM EST [facility] [address] [place] [address] Meghan Duarte, AuD [address] [place] [address] [email or web address] 07/17/2025 1:45 PM EST [facility] [address] [place] [address] Meghan Duarte, AuD [address] [place] [address] [email or web address] documented as of this encounter Visit Diagnoses Not on filedocumented in this encounter Additional Health Concerns Assessment Noted Time PHQ-2 Depression Total Score: 0 06/13/20 19 12:35 PM EDT documented as of this encounter Care Teams Piercing Machine Operator Relationship Specialty Start Date End Date Derrick Donovan MD [address] [place] [address] PCP - General 02/21/14 04/25/20 Iris Serna MD [address] [place] [address] PCP - General Family Medicine 04/26/20 documented as of this encounter Additional Source Comments The information contained in this document represents components of the legal health record. It is not the complete legal health record.[facility]
--- OUTSIDE RECORDS SUMMARY | 2024-11-30 09:45 | XMS_ITS | Encounter Summary ---
Author Organization [facility] Address [address] [facility] [address] [place] [address] Phone Care Team Providers Care Cook Supervisor Name Role Phone Iris Serna MD Primary Care Provider [phone] Encounter Details Date Type Department Care Team (Late Contact Info) Description 07/04/2021 Procedure Pass [facility] Radiology [address] [place] [address] Social History Tobacco Use Types Packs/Day Years [...] (Late Contact Info) Description 09/14/[address] [facility] MR Imaging, Pereyra [address] [place] [address] 05/29/2025 1:[address] [facility] Endocrine, Diabetes, and Hypertension [address] [place] [address] Johnathan Lange MD [address] [facility] Endocrinology, Diabetes and Hypertension, RFB[address] [place] [address] [email or web address] 07/03/2025 12:[address] [facility] MR Imaging, Pereyra [address] [place] [address] Chance De PA-C [address], [address] [place] [address] [email or web address]. KAROL 07/03/2025 1:30 PM EST Office Visit [facility] Department of Neurosurgery [address] [place] [address] Chance De PA-C [address], [address] [place] [address] [email or web address]. [email or web address] 07/17/2025 1:00 PM EST Evaluation [facility] Multispecialty [address] [place] [address] Meghan Duarte, AuD [address] [place] [address] [email or web address] 07/17/2025 1:45 PM EST [facility] [address] [place] [address] Meghan Duarte, AuD [address] [place] [address] [email or web address] documented as of this encounter Visit Diagnoses Not on filedocumented in this encounter Additional Health Concerns Assessment Noted Time PHQ-2 Depression Total Score: 0 07/01/20 21 1:15 PM EST documented as of this encounter Care Teams Cook Supervisor Relationship Specialty Start Date End Date Iris Serna MD [address] [place] [address] PCP - General Family Medicine 04/26/20 documented as of this encounter Additional Source Comments The information contained in this document represents components of the legal health record. It is not the complete legal health record.[facility]
--- OUTSIDE RECORDS SUMMARY | 2024-11-30 09:45 | XMS_ITS | Encounter Summary ---
Author Organization [facility] Address [address] [place] [address] Phone Care Team Providers Care Research Advisor Name Role Phone Derrick Donovan MD Primary Care Provider Iris Serna MD Primary Care Provider [phone] Encounter Details Date Type Department Care Team (Late st Contact Info) Description 09/28/2019 Procedure Pass [facility] MR Imaging, Pereyra [address] [place] [address] Social History Tobacco Use Types Packs/Day Years [...] st Contact Info) Description 09/14/2024 Procedure Pass [facility] MR Imaging, Pereyra [address] [place] [address] 05/29/2025 1:20 PM EDT Telemedicine [facility] Endocrine, Diabetes, and Hypertension [address] [place] [address] Johnathan Lange MD [address] [place] [address] Endocrinology, Diabetes and Hypertension, B-2 [place] [address] [email or web address] 07/03/2025 12:40 PM EST Appointment [facility] MR Imaging, Pereyra [address] [place] [address] Chance De PA-C [address], [address] 4 [place] [address] [email or web address] KAROL 07/03/2025 1:30 PM EST Office Visit [facility] Department of Neurosurgery [address] [place] [address] Chance De PA-C [address], [address] 4 [place] [address] [email or web address] 07/17/2025 1:00 PM EST [facility] [address] [place] [address] Meghan Duarte, AuD [address] [place] [address] [email or web address] 07/17/2025 1:45 PM EST [facility] [address] [place] [address] Meghan Duarte, AuD [address] [place] [address] [email or web address] documented as of this encounter Visit Diagnoses Not on filedocumented in this encounter Additional Health Concerns Assessment Noted Time PHQ-2 Depression Total Score: 0 06/13/20 19 12:35 PM EDT documented as of this encounter Care Teams Research Advisor Relationship Specialty Start Date End Date Derrick Donovan MD [address] [place] [address] PCP - General 02/21/14 04/25/20 Iris Serna MD [address] [place] [address] PCP - General Family Medicine 04/26/20 documented as of this encounter Additional Source Comments The information contained in this document represents components of the legal health record. It is not the complete legal health record.[facility]
--- OUTSIDE RECORDS SUMMARY | 2024-11-30 09:45 | XMS_ITS | Encounter Summary ---
Author Organization [facility] Address [address] [place] [address] Phone Care Team Providers Care Asbestos Remover Name Role Phone Derrick Donovan MD Primary Care Provider Iris Serna MD Primary Care Provider [phone] Encounter Details Date Type Department Care Team (Late st Contact Info) Description 10/28/2016 Ancillary Orders [facility] Endocrine, Diabetes, and Hypertension [address] [place] [address] Ronna Hancock [address] [place] [address] [email or web address] Thyroid nodule Social History Tobacco Use [...] st Contact Info) Description 09/14/2024 Procedure Pass [facility] MR Imaging, Pereyra [address] [place] [address] 05/29/2025 1:20 PM EDT Telemedicine [facility] Endocrine, Diabetes, and Hypertension [address] [place] [address] Johnathan Lange MD [address] [place] [address] Endocrinology, Diabetes and Hypertension, RFB-[address] [place] [address] [email or web address] 07/03/2025 12:40 PM EST Appointment [facility] MR Imaging, Pereyra [address] [place] [address] Chance De PA-C [address] [place] [address] [email or web address]. [email or web address] 07/03/2025 1:30 PM EST Office Visit [facility] Department of Neurosurgery [address] [place] [address] Chance De PA-C [address], [address] [place] [address] [email or web address]. [email or web address] 07/17/2025 1:00 PM EST Evaluation [facility] Multispecialty [address] [place] [address] Meghan Duarte, AuD [address] [place] [address] [email or web address] 07/17/2025 1:45 PM EST [facility] [address] [place] [address] Meghan Duarte, AuD [address] [place] [address] [email or web address] documented as of this encounter Results * US Thyroid Gland (10/28/2016 11:26 AM EST) Anatomical Region Laterality Modality Neck, Head, Chest Ultrasound 10/28/2016 Narrative 10/28/2016 11:34 AM EST ??TESTS PERFORMED ?Thyroid/Neck Ultrasound (93862) ??INDICATIONS/REASONS FOR TESTS ?Thyroid mass ?FINDINGS ?Thyroid [...] MD - 10/28/2016 TESTS PERFORMED Thyroid/Neck Ultrasound (50264) INDICATIONS/REASONS FOR TESTS Thyroid mass FINDINGS Thyroid gland Size Right lobe: 4.4 x 1.7 x 1.6 cm Left lobe: 4.6 x 1.9 x 1.7 cm Isthmus thickness: 0.4 cm Diffusely heterogeneous Lymph nodes Likely benign Left 10 x 9 x 4 mm, mid IJ chain IMPRESSION: Diffusely heterogeneous thyroid gland without definite discrete nodule Johnathan Lange MD [facility] documented in this encounter Visit Diagnoses Diagnosis Thyroid nodule Nontoxic uninodular goiter Thyroid nodule Nontoxic uninodular goiter documented in this encounter Care Teams Asbestos Remover Relationship Specialty Start Date End Date Derrick Donovan MD [address] [place] [address] PCP - General 02/21/14 04/25/20 Iris Serna MD [address] [place] [address] PCP - General Family Medicine 04/26/20 documented as of this encounter Additional Source Comments The information contained in this document represents components of the legal health record. It is not the complete legal health record.[facility]
[2024-11-30 10:15] LABS: Erythrocyte Sedimentation Rate 12 MM/HR (0-20)
== END 2024-11-30 09:08 | disposition home or self-care (01) ==
LOC: HO.HVNA 09:07
PROVIDERS: Visit Provider Internal Medicine Infectious Disease
DX: T84.54XA Infection and inflammatory reaction due to internal left knee prosthesis, initial encounter (principal)
CPT/HCPCS: 36415; 80053; 80202; 85025; 85652; 86140

== ENCOUNTER 2024-12-07 09:15 | Outpatient (REF) | payer SELFPAY ==
[2024-12-07 09:22] LABS: MANUAL DIFF FLAG NO
[2024-12-07 09:30] LABS: Eosinophils Absolute Auto 0.2 X10*3/uL (0.0-0.4); Eosinophils Percent Auto 3.9 % (0-4); Hemoglobin 12.9 g/dl (12.0-16.0); Imm Gran Abs Auto 0.01 X10*3/uL (0.00-0.03); Imm Gran Pct Auto 0.2 % (0.0-0.4); Lymphocytes Absolute Auto 1.2 X10*3/uL (1.2-4.9); Lymphocytes Percent Auto 29.5 % (20-40); Mean Corpuscular HGB Conc 33.1 g/dl (31.0-35.0); Mean Corpuscular Hemoglobin 28.7 pg (27.0-33.0); Mean Corpuscular Volume 86.7 fL (80.0-98.0); Mean Platelet Volume 10.4 fL (9.4-12.3); Monocytes Absolute Auto 0.4 X10*3/uL (0.1-1.2); Neutrophils Absolute Auto 2.3 x10*3/uL (2.0-8.3); Neutrophils Percent Auto 56.4 % (45-73); Platelet Count 255 X10*3/uL (160-400); White Blood Count 4.1 X10*3/uL (4.8-10.8)
--- OUTSIDE RECORDS SUMMARY | 2024-12-07 10:08 | XMS_ITS | Encounter Summary ---
Author Organization [facility] Address [address] [place] [address] Phone Care Team Providers Care Repairer Veneer Sheet Name Role Phone Iris Serna MD Primary Care Provider [phone] Encounter Details Date Type Department Care Team (Late st Contact Info) Description 12/15/2022 Procedure Pass [facility] MR Imaging, Pereyra [address] [place] [address] Social History Tobacco Use Types Packs/Day Years [...] st Contact Info) Description 09/14/2024 Procedure Pass [facility] MR Imaging, Pereyra [address] [place] [address] 05/29/2025 1:20 PM EDT Telemedicine [facility] Endocrine, Diabetes, and Hypertension [address] [place] [address] Johnathan Lange MD [address] [place] [address] Endocrinology, Diabetes and Hypertension, RFB[address] [place] [address] [email or web address] 07/03/2025 12:40 PM EST Appointment [facility] MR Imaging, Pereyra [address] [place] [address] Chance De PA-C [address] [place] [address] [email or web address]. [email or web address] 07/03/2025 1:30 PM EST Office Visit [facility] Department of Neurosurgery [address] [place], [place] [phone] Chance De PA-C [address], [address] [place] [address] [email or web address]. [email or web address] 07/17/2025 1:00 PM EST [facility] [address] [place] [address] DuarteMeghan alegria, AuD [address] [place] [address] [email or web address] 07/17/2025 1:45 PM EST [facility] [address] [place] [address] Duarte Meghan M, AuD [address] [place] [address] [email or web address] documented as of this encounter Visit Diagnoses Not on filedocumented in this encounter Additional Health Concerns Assessment Noted Time PHQ-2 Depression Total Score: 0 03/02/20 23 12:04 PM EDT documented as of this encounter Care Teams Repairer Veneer Sheet Relationship Specialty Start Date End Date Iris Serna MD [address] [place] [address] PCP - General Family Medicine 04/26/20 documented as of this encounter Additional Source Comments The information contained in this document represents components of the legal health record. It is not the complete legal health record.[facility]
--- OUTSIDE RECORDS SUMMARY | 2024-12-07 10:08 | XMS_ITS | Encounter Summary ---
Author Organization [facility] Address [address] [place] [address] Phone Care Team Providers Care Critical Care Unit Manager Name Role Phone Iris Serna MD Primary Care Provider [phone] Encounter Details Date Type Department Care Team (Late st Contact Info) Description 07/24/2023 Procedure Pass [facility] [address] [place] [address] Social History Tobacco Use Types Packs/Day Years [...] st Contact Info) Description 09/14/2024 Procedure Pass [facility] MR Imaging, Pereyra [address] [place] [address] 05/29/2025 1:20 PM EDT Telemedicine [facility] Endocrine, Diabetes, and Hypertension [address] [address] Johnathan Lange MD 221 [facility] Endocrinology, Diabetes and Hypertension, RFB-[address] [place] [address] [email or web address] 07/03/2025 12:40 PM EST Appointment [facility] MR Imaging, Pereyra [address] [place] [address] Chance De PA-C [address], Floor 4 [place] [address] [email or web address]. KAROL 07/03/2025 1:30 PM EST Office Visit [facility] Department of Neurosurgery [address] [place] [address] Chance De PA-C [address], Floor 4 [place] [address] [email or web address]. KAROL 07/17/2025 1:00 PM EST Evaluation [facility] Multispecialty [address] [place] [address] Meghan Duarte, AuD [address] [place] [address] [email or web address] 07/17/2025 1:45 PM EST [facility] [address] [place] [address] Meghan Duarte, AuD 75 [place] [address] [email or web address] documented as of this encounter Visit Diagnoses Not on filedocumented in this encounter Additional Health Concerns Assessment Noted Time PHQ-2 Depression Total Score: 0 03/02/20 23 12:04 PM EDT documented as of this encounter Care Teams Critical Care Unit Manager Relationship Specialty Start Date End Date Iris Serna MD [address] [place] [address] PCP - General Family Medicine 04/26/20 documented as of this encounter Additional Source Comments The information contained in this document represents components of the legal health record. It is not the complete legal health record.[facility]
--- OUTSIDE RECORDS SUMMARY | 2024-12-07 10:08 | XMS_ITS | Encounter Summary ---
Author Organization [facility] [place] [address] Care Team Providers Care Coil Taper Name Role Phone Iris Serna MD Primary Care Provider [phone] Reason for Visit * Reason Onset Date Comments MyChart 12/05/2024 Encounter Details Date Type Department Care Team (Late st Contact Info) Description 12/05/2024 Telephone Infectious Disease - [place] [address] [place] [address] Juma Avilez LPN MyChart Social History Tobacco Use Types Packs/Day Years [...] for your loved ones. For example, child care development specialist or elderly care for an older adult? [...] as of this encounter Progress Notes * Juam Avilez LPN - 12/05/2024 4:06 PM EDT Per [employer] customer svcs, Pt requests this office contact Sarai ZHU regarding MD's unavailability. documented in this encounter Plan of Treatment Upcoming Encounters Date Type Department Care Team (Late st Contact Info) Description 12/21/2024 11:00 AM EDT Office Visit [facility] Disease - [place] [address] [place] [phone] Nicolle Kelly MD [address] [place], [place] [phone] documented as of this encounter Visit Diagnoses Not on filedocumented in this encounter Care Teams Coil Taper Relationship Specialty Start Date End Date Iris Serna MD [address] [place] [address] PCP - General Internal Medicine 08/02/24 documented as of this encounter
--- OUTSIDE RECORDS SUMMARY | 2024-12-07 10:09 | XMS_ITS | Patient Health Record ---
Author Organization [facility] Address [address] [address] [place] [phone] Care Team Providers Care Telemetry Monitor Name Role Phone Angel Major Primary Care Provider Kaleigh Wyman Unavailable [phone] Reason For Referral No Information Medications Medication [...] of medial cartilage AND/OR meniscus of knee ([id number]) Medial meniscal tear (836.0) Active confirmed Problem [...] Date Coverage End Date [employer] [address] [place] [id number] Brenda Pichardo Self - patient is the [...] Euflexxa #3, we supply 08/31/2017 INJ Depo/Lido (AS-UF-qdo-hip-knee) 06/02/2013 INJ Depo/Lido (IM-DJ-vup-hip-knee) 08/05/2013 INJ Depo/Lido (EK-OL-xrh-hip-knee) 01/27/2014 INJ Depo/Lido (QW-EN-hbv-hip-knee) 07/07/2014 INJ Depo/Lido (XI-TK-cat-hip-knee) 07/07/2014 INJ Depo/Lido (QP-VG-fnt-hip-knee) 03/12/2015 2/8 INJ Gini/Lido (DA-QX-asl-hip-knee) 03/28/2016 2/6 INJ Gini/Lido (UL-KG-sks-hip-knee) 09/02/2018 Medical (General) History Medical History History ICD Code Rheumatoid arthritis Graves Disease Surgical History Surgery Date(Month/Year) Right Knee arthroscopy 2007 T & A Salpingo-oophorectomy Right knee arthroscopy, part ial medial menisectomy, chondroplasty patella 06/28/14 JPD Right knee arthroscopy, medial menisecto my, chondroplasty patella 04/27/13 JPD
--- OUTSIDE RECORDS SUMMARY | 2024-12-07 10:09 | XMS_ITS | Encounter Summary ---
Author Organization [facility] Address [address] [place] [address] Phone Care Team Providers Care Supervisor [employer] Name Role Phone Iris Serna MD Primary Care Provider [phone] Encounter Details Date Type Department Care Team (Late st Contact Info) Description 11/21/2020 Procedure Pass [facility] Angio Interventional Radiology [address] [place] [address] Social History Tobacco Use Types Packs/Day Years [...] (Late Contact Info) Description 09/14/2024 Procedure Pass [facility] MR Imaging, Pereyra 60 [place] [address] 05/29/2025 1:20 PM EDT Telemedicine [facility] Endocrine, Diabetes, and Hypertension [address] [place] [address] Johnathan Lange MD [address] [place] [address] Endocrinology, Diabetes and Hypertension, [facility]2 [place] [address] [email or web address] 07/03/2025 12:40 PM EST Appointment [facility] MR Imaging, Pereyra [address] [place] [address] Chance De PA-C [address], Floor 4 [place] [address] [email or web address]. KAROL 07/03/2025 1:30 PM EST Office Visit [facility] Department of Neurosurgery [address] [place] [address] Chance De PA-C [address], Floor 4 [place] [address] [email or web address]. KAROL 07/17/2025 1:00 PM EST Evaluation [facility] Multispecialty [address] [place] [address] Meghan Duarte, AuD 75 [place] [address] [email or web address] 07/17/2025 1:45 PM EST [facility] [address] [place] [address] Meghan Duarte, AuD 75 [place] [address] [email or web address] documented as of this encounter Visit Diagnoses Not on filedocumented in this encounter Additional Health Concerns Assessment Noted Time PHQ-2 Depression Total Score: 0 04/16/20 20 12:22 PM EDT documented as of this encounter Care Teams Supervisor [employer] Relationship Specialty Start Date End Date Iris Serna MD [address] [place] [address] PCP - General Family Medicine 04/26/20 documented as of this encounter Additional Source Comments The information contained in this document represents components of the legal health record. It is not the complete legal health record.[facility]
--- OUTSIDE RECORDS SUMMARY | 2024-12-07 10:09 | XMS_ITS | Encounter Summary ---
Author Organization [facility] Address [address] [place] [address] Phone Care Team Providers Care Mixing Machine Tender Name Role Phone Iris Serna MD Primary Care Provider [phone] Encounter Details Date Type Department Care Team (Late st Contact Info) Description 10/10/2020 Procedure Pass [facility] CT Imaging, Pereyra [address] [place] [address] Social History Tobacco Use Types Packs/Day Years [...] st Contact Info) Description 09/14/2024 Procedure Pass [facility] MR Imaging, Pereyra [address] [place] [address] 05/29/2025 1:20 PM EDT Telemedicine [facility] Endocrine, Diabetes, and Hypertension [address] [place] [address] Johnathan Lange MD [address] [place] [address] Endocrinology, Diabetes and Hypertension, B-[address] [place] [address] [email or web address] 07/03/2025 12:40 PM EST Appointment [facility] MR Imaging, Pereyra [address] [place] [address] Chance De PA-C [address], Floor 4 [place] [address] [email or web address]. KAROL 07/03/2025 1:30 PM EST Office Visit [facility] Department of Neurosurgery [address] [place] [address] Chance De PA-C [address], Floor 4 [place] [address] [email or web address]. [email or web address] 07/17/2025 1:00 PM EST Evaluation [facility] Multispecialty [address] [place] [address] Meghan Duarte, AuD 75 [place] [address] [email or web address] 07/17/2025 1:45 PM EST [facility] [address] [place] [address] Meghan Duarte, AuD 75 [place] [address] [email or web address] documented as of this encounter Visit Diagnoses Not on filedocumented in this encounter Additional Health Concerns Assessment Noted Time PHQ-2 Depression Total Score: 0 04/16/20 20 12:22 PM EDT documented as of this encounter Care Teams Mixing Machine Tender Relationship Specialty Start Date End Date Iris Serna MD [address] [place] [address] PCP - General Family Medicine 04/26/20 documented as of this encounter Additional Source Comments The information contained in this document represents components of the legal health record. It is not the complete legal health record.[facility]
--- OUTSIDE RECORDS SUMMARY | 2024-12-07 10:09 | XMS_ITS | Encounter Summary ---
Author Organization [facility] Address [address] [place] [address] Phone Care Team Providers Care Taper Printed Circuit Layout Name Role Phone Iris Serna MD Primary Care Provider [phone] Encounter Details Date Type Department Care Team (Late st Contact Info) Description 06/13/[address] [facility] CT Imaging, Pereyra [address] [place] [address] Social History Tobacco Use Types Packs/Day Years [...] st Contact Info) Description 09/14/2024 Procedure Pass [facility] MR Imaging, Pereyra [address] [place] [address] 05/29/2025 1:20 PM EDT Telemedicine [facility] Endocrine, Diabetes, and Hypertension [address] [place] [address] Johnathan Lange MD [address] [place] [address] Endocrinology, Diabetes and Hypertension, [facility]2 [place] [address] [email or web address] 07/03/2025 12:40 PM EST Appointment [facility] MR Imaging, Pereyra [address] [place] [address] Chance De PA-C [address], Floor 4 [place] [address] [email or web address]. KAROL 07/03/2025 1:30 PM EST Office Visit [facility] Department of Neurosurgery [address] [place] [address] Chance De PA-C [address], Floor 4 [place] [address] [email or web address]. KAROL 07/17/2025 1:00 PM EST Evaluation [facility] Multispecialty [address] [place] [address] Meghan Duarte, AuD 75 [place] [address] [email or web address] 07/17/2025 1:45 PM EST [facility] [address] [place] [address] Meghan Duarte, AuD 75 [place] [address] [email or web address] documented as of this encounter Visit Diagnoses Not on filedocumented in this encounter Additional Health Concerns Assessment Noted Time PHQ-2 Depression Total Score: 0 04/16/20 20 12:22 PM EDT documented as of this encounter Care Teams Taper Printed Circuit Layout Relationship Specialty Start Date End Date Iris Serna MD [address] [place] [address] PCP - General Family Medicine 04/26/20 documented as of this encounter Additional Source Comments The information contained in this document represents components of the legal health record. It is not the complete legal health record.[facility]
--- OUTSIDE RECORDS SUMMARY | 2024-12-07 10:09 | XMS_ITS | Encounter Summary ---
Author Organization [facility] Address [address] [place] [address] Phone Care Team Providers Care Resolution Expert Name Role Phone Iris Serna MD Primary Care Provider [phone] Encounter Details Date Type Department Care Team (Late st Contact Info) Description 03/13/2022 Procedure Pass [facility] MR Imaging, Pereyra [address] [place] [address] Social History Tobacco Use Types Packs/Day Years [...] st Contact Info) Description 09/14/2024 Procedure Pass [facility] MR Imaging, Pereyra 60 [place] [address] 05/29/2025 1:20 PM EDT Telemedicine [facility] Endocrine, Diabetes, and Hypertension [address] [place] [address] Johnathan Lange MD [address] [place] [address] Endocrinology, Diabetes and Hypertension, [facility]-2 [place] [address] [email or web address] 07/03/2025 12:40 PM EST Appointment [facility] MR Imaging, Pereyra [address] [place] [address] Chance De PA-C [address], Floor 4 [place] [address] KYLE@[email or web address]. KAROL 07/03/2025 1:30 PM EST Office Visit [facility] Department of Neurosurgery [address] [place] [address] Chance De PA-C [address], Floor 4 [place] [address] [email or web address]. KAROL 07/17/2025 1:00 PM EST Evaluation [facility] Multispecialty [address] [place] [address] Meghan Duarte, AuD 75 [place] [address] [email or web address] 07/17/2025 1:45 PM EST [facility] [address] [place] [address] Meghan Duarte, AuD 75 [place] [address] [email or web address] documented as of this encounter Visit Diagnoses Not on filedocumented in this encounter Additional Health Concerns Assessment Noted Time PHQ-2 Depression Total Score: 0 03/03/20 22 11:21 AM EDT documented as of this encounter Care Teams Resolution Expert Relationship Specialty Start Date End Date Iris Serna MD [address] [place] [address] PCP - General Family Medicine 04/26/20 documented as of this encounter Additional Source Comments The information contained in this document represents components of the legal health record. It is not the complete legal health record.[facility]
--- OUTSIDE RECORDS SUMMARY | 2024-12-07 10:09 | XMS_ITS | Encounter Summary ---
Author Organization [facility] Address [address] [address] Phone Care Team Providers Care Bicycle Taxi Driver Name Role Phone Iris Serna MD Primary Care Provider [phone] [phone] Encounter Details Date Type Department Care Team (Late st Contact Info) Description 07/11/2020 Procedure Pass [facility] [address] [place] [address] Social History Tobacco Use Types Packs/Day Years [...] st Contact Info) Description 09/14/2024 Procedure Pass [facility] MR Imaging, Pereyra [address] [place] [address] 05/29/2025 1:20 PM EDT Telemedicine [facility] Endocrine, Diabetes, and Hypertension [address] [place] [address] [place] [address] Johnathan Lange MD 221 [facility] Endocrinology, Diabetes and Hypertension, [facility] [place] [address] [email or web address] 07/03/2025 12:40 PM EST Appointment [facility] MR Imaging, Pereyra [address] [place] [address] Chance De PA-C [address], Floor 4 [place] [address] [email or web address]@[email or web address] KAROL 07/03/2025 1:30 PM EST Office Visit [facility] Department of Neurosurgery [address] [place] [address] Chance De PA-C 60 [facility], Floor 4 [place] [address] [email or web address]. KAROL 07/17/2025 1:00 PM EST [facility] [address] [place] [address] Meghan Duarte, AuD 75 [place] [address] [email or web address] 07/17/2025 1:45 PM EST [facility] [address] [place] [address] Meghan Duarte, AuD 75 [place] [address] [email or web address] documented as of this encounter Visit Diagnoses Not on filedocumented in this encounter Additional Health Concerns Assessment Noted Time PHQ-2 Depression Total Score: 0 04/16/20 20 12:22 PM EDT documented as of this encounter Care Teams Bicycle Taxi Driver Relationship Specialty Start Date End Date Iris Serna MD [address] [place] [address] PCP - General Family Medicine 04/26/20 documented as of this encounter Additional Source Comments The information contained in this document represents components of the legal health record. It is not the complete legal health record.[facility]
--- OUTSIDE RECORDS SUMMARY | 2024-12-07 10:09 | XMS_ITS | Encounter Summary ---
Author Organization [facility] Address [address] [facility] [address] [place] [address] Phone Care Team Providers Care Fruit Picker Name Role Phone Iris Serna MD Primary Care Provider [phone] [phone] Encounter Details Date Type Department Care Team (Late st Contact Info) Description 09/28/2024 Procedure Pass [address] [place] [address] Social History Tobacco Use Types Packs/Day Years [...] st Contact Info) Description 09/14/2024 Procedure Pass [facility] MR Imaging, Pereyra [address] [place] [address] 05/29/2025 1:20 PM EDT Telemedicine [facility] Endocrine, Diabetes, and Hypertension [address] [address] Johnathan Lange MD 221 [facility] Endocrinology, Diabetes and Hypertension, [facility] [place] [address] [email or web address] 07/03/2025 12:40 PM EST Appointment [facility] MR Imaging, Pereyra [address] [place] [address] Chance De PA-C [address], Floor 4 [place] [address] KYLE@[email or web address]. KAROL 07/03/2025 1:30 PM EST Office Visit [facility] Department of Neurosurgery [address] [place] [address] Chance De PA-C [address], Floor 4 [place] [address] [email or web address]. KAROL 07/17/2025 1:00 PM EST [facility] [address] [place] [address] Meghan Duarte, AuD 75 [place] [address] [email or web address] 07/17/2025 1:45 PM EST [facility] [address] [place] [address] Meghan Duarte, AuD 75 [place] [address] [email or web address] documented as of this encounter Visit Diagnoses Not on filedocumented in this encounter Additional Health Concerns Assessment Noted Time PHQ-2 Depression Total Score: 0 03/02/20 23 12:04 PM EDT documented as of this encounter Care Teams Fruit Picker Relationship Specialty Start Date End Date Iris Serna MD [address] [place] [phone] (Work) PCP - General Family Medicine 04/26/20 documented as of this encounter Additional Source Comments The information contained in this document represents components of the legal health record. It is not the complete legal health record.[facility]
--- OUTSIDE RECORDS SUMMARY | 2024-12-07 10:09 | XMS_ITS | Encounter Summary ---
Author Organization [facility] Address [address] [place] [address] Phone Care Team Providers Care Stock Blender Name Role Phone Iris Serna MD Primary Care Provider [phone] Encounter Details Date Type Department Care Team (Late st Contact Info) Description 07/11/2020 Procedure Pass [facility] Periop 75 [place] [address] Social History Tobacco Use Types Packs/Day Years [...] st Contact Info) Description 09/14/2024 Procedure Pass [facility] MR Imaging, Pereyra 60 [place] [address] 05/29/2025 1:20 PM EDT Telemedicine [facility] Endocrine, Diabetes, and Hypertension [address] [place] [address] Johnathan Lange MD [address] [place] [address] Endocrinology, Diabetes and Hypertension, [facility]-2 [place] [address] [email or web address] 07/03/2025 12:40 PM EST Appointment [facility] MR Imaging, Pereyra [address] [place] [address] Chance De PA-C [address], Floor 4 [place] [address] [email or web address]. KAROL 07/03/2025 1:30 PM EST Office Visit [facility] Department of Neurosurgery [address] [place] [address] Chance De PA-C [address], [address] 4 [place] [address] [email or web address]. [email or web address] 07/17/2025 1:00 PM EST Evaluation [facility] Multispecialty [address] [place] [address] Meghan Duarte, AuD 75 [place] [address] [email or web address] 07/17/2025 1:45 PM EST [facility] [address] [place] [address] Meghan Duarte, AuD 75 [place] [address] [email or web address] documented as of this encounter Visit Diagnoses Not on filedocumented in this encounter Additional Health Concerns Assessment Noted Time PHQ-2 Depression Total Score: 0 04/16/20 20 12:22 PM EDT documented as of this encounter Care Teams Stock Blender Relationship Specialty Start Date End Date Iris Serna MD [address] [place] [address] PCP - General Family Medicine 04/26/20 documented as of this encounter Additional Source Comments The information contained in this document represents components of the legal health record. It is not the complete legal health record.[facility]
--- OUTSIDE RECORDS SUMMARY | 2024-12-07 10:09 | XMS_ITS | Encounter Summary ---
Author Organization [facility] Address [address] [place] [address] Phone Care Team Providers Care Gas Or Petroleum Operator Name Role Phone Iris Serna MD Primary Care Provider [phone] Encounter Details Date Type Department Care Team (Late st Contact Info) Description 07/11/2020 Procedure Pass [facility] [address] [place] [address] Social History Tobacco Use Types Packs/Day Years [...] st Contact Info) Description 09/14/2024 Procedure Pass [facility] MR Imaging, Pereyra [address] [place] [address] 05/29/2025 1:20 PM EDT Telemedicine [facility] Endocrine, Diabetes, and Hypertension [address] [place] [address] Johnathan Lange MD [address] [place] [address] Endocrinology, Diabetes and Hypertension, B-[address] [place] [address] [email or web address] 07/03/2025 12:40 PM EST Appointment [facility] MR Imaging, Pereyra [address] [place] [address] Chance De PA-C [address], Floor 4 [place] [address] [email or web address] 07/03/2025 1:30 PM EST Office Visit [facility] Department of Neurosurgery [address] [place] [address] Chance De PA-C [address], Floor 4 [place] [address] [email or web address] 07/17/2025 1:00 PM EST Evaluation [facility] Multispecialty [address] [place] [address] Meghan Duarte, AuD [address] [place] [address] [email or web address] 07/17/2025 1:45 PM EST [facility] [address] [place] [address] Meghan Duarte, AuD [address] [place] [address] [email or web address] documented as of this encounter Visit Diagnoses Not on filedocumented in this encounter Additional Health Concerns Assessment Noted Time PHQ-2 Depression Total Score: 0 04/16/20 20 12:22 PM EDT documented as of this encounter Care Teams Gas Or Petroleum Operator Relationship Specialty Start Date End Date Iris Serna MD [address] [place] [address] PCP - General Family Medicine 04/26/20 documented as of this encounter Additional Source Comments The information contained in this document represents components of the legal health record. It is not the complete legal health record.[facility]
--- OUTSIDE RECORDS SUMMARY | 2024-12-07 10:09 | XMS_ITS | Encounter Summary ---
Author Organization [facility] Address [address] [place] [address] Phone Care Team Providers Care Sheet Rock Applicator Name Role Phone Iris Serna MD Primary Care Provider [phone] Encounter Details Date Type Department Care Team (Late st Contact Info) Description 01/07/2021 Procedure Pass [facility] Outside Maintenance Worker [address] [address] Social History Tobacco Use Types Packs/Day Years [...] st Contact Info) Description 09/14/2024 Procedure Pass [facility] MR Imaging, Pereyra [address] [place] [address] 05/29/2025 1:20 PM EDT Telemedicine [facility] Endocrine, Diabetes, and Hypertension [address] [place] [address] Johnathan Lange MD [address] [facility] Endocrinology, Diabetes and Hypertension, RFB-[address] [place] [address] [email or web address] 07/03/2025 12:40 PM EST Appointment [facility] MR Imaging, Pereyra [address] [place] [address] Chance De PA-C [address], [address] 4 [place] [address] [email or web address]. [email or web address] 07/03/2025 1:30 PM EST Office Visit [facility] Department of Neurosurgery [address] [place] [address] Chance De PA-C [address], [address] 4 [place] [address] [email or web address]. [email or web address] 07/17/2025 1:00 PM EST Evaluation [facility] Multispecialty [address] [place] [address] Meghan Duarte, AuD [address] [place] [address] [email or web address] 07/17/2025 1:45 PM EST [facility] [address] [place] [address] Meghan Duarte, AuD [address] [place] [address] [email or web address] documented as of this encounter Visit Diagnoses Not on filedocumented in this encounter Additional Health Concerns Assessment Noted Time PHQ-2 Depression Total Score: 0 04/16/20 20 12:22 PM EDT documented as of this encounter Care Teams Sheet Rock Applicator Relationship Specialty Start Date End Date Iris Serna MD [address] [place] [address] PCP - General Family Medicine 04/26/20 documented as of this encounter Additional Source Comments The information contained in this document represents components of the legal health record. It is not the complete legal health record.[facility]
--- OUTSIDE RECORDS SUMMARY | 2024-12-07 10:09 | XMS_ITS | Encounter Summary ---
Author Organization [facility] Address [address] [place] [address] Phone Care Team Providers Care International Sourcing Manager Name Role Phone Iris Serna MD Primary Care Provider [phone] Encounter Details Date Type Department Care Team (Late st Contact Info) Description 09/05/2023 Ancillary Orders [facility] [address] [place] [address] Jalyn Dugan, OIL TRANSPORT DRIVER [address] [facility], [address] [place] [address] [email or web address] Meralgia paresthetica, unspecified laterality (Primary [...] st Contact Info) Description 09/14/2024 Procedure Pass [facility] MR Imaging, Hafsa [address] [place] [address] 05/29/2025 1:20 PM EDT Telemedicine [facility] Endocrine, Diabetes, and Hypertension [address] [address] Johnathan Lange MD [address] [place] [address] Endocrinology, Diabetes and Hypertension, RFB[address] [place] [address] [email or web address] 07/03/2025 12:40 PM EST Appointment [facility] MR Walker, Hafsa [address] [place] [address] Chance De PA-C 60 [facility], Floor 4 [place] [address] [email or web address] 07/03/2025 1:30 PM EST Office Visit [facility] Department of Neurosurgery [address] [place] [address] Chance De PA-C 60 [facility], Floor 4 [place] [address] [email or web address] 07/17/2025 1:00 PM EST Evaluation [facility] Multispecialty [address] [place] [address] Meghan Duarte, AuD [address] [place] [address] [email or web address] 07/17/2025 1:45 PM EST [facility] [address] [place] [address] Meghan Duarte, AuD [address] [place] [address] [email or web address] documented as of this encounter Results * US Thyroid Gland (09/08/2023 11:03 AM EST) Anatomical Region Laterality Modality Neck, Head, Chest Ultrasound 09/08/2023 11:0 5 AM EST Impressions 09/08/2023 11:32 AM EST 1. ??Diffusely heterogeneous thyroid with unchanged subcentimeter nodules. Narrative 09/08/2023 11:32 AM EST US THYROID GLAND Referring clinician's provided indication for this examination in [facility]: Follow Up Limited Survey TECHNIQUE: Thyroid/Neck Ultrasound [...] clinician's provided indication for this examination in [facility]:Follow Up Limited Survey TECHNIQUE: Thyroid/Neck Ultrasound COMPARISON: [...] heterogeneous thyroid with unchanged subcentimeternodules. Jalyn Dugan OIL TRANSPORT DRIVER IMG US THYROI D documented in this encounter Visit Diagnoses Diagnosis Meralgia paresthetica, unspecified laterality- Primary Meralgia paresthetica, unspecified laterality documented in this encounter Additional Health Concerns Assessment Noted Time PHQ-2 Depression Total Score: 0 03/02/20 23 12:04 PM EDT documented as of this encounter Care Teams International Sourcing Manager Relationship Specialty Start Date End Date Iris Serna MD [address] [place] [address] PCP - General Family Medicine 04/26/20 documented as of this encounter Additional Source Comments The information contained in this document represents components of the legal health record. It is not the complete legal health record.[facility]
--- OUTSIDE RECORDS SUMMARY | 2024-12-07 10:09 | XMS_ITS | Encounter Summary ---
Author Organization [facility] Address [address] [place] [address] Phone Care Team Providers Care Senior Ruby Developer Name Role Phone Iris Serna MD Primary Care Provider [phone] Encounter Details Date Type Department Care Team (Late st Contact Info) Description 08/30/2020 Procedure Pass [facility] MR Imaging, Pereyra [address] [place] [address] Social History Tobacco Use Types Packs/Day Years [...] st Contact Info) Description 09/14/2024 Procedure Pass [facility] MR Imaging, Pereyra [address] [place] [address] 05/29/2025 1:20 PM EDT Telemedicine [facility] Endocrine, Diabetes, and Hypertension [address] [place] [address] Johnathan Lange MD [address] [place] [address] Endocrinology, Diabetes and Hypertension, [facility] [place] [address] [email or web address] 07/03/2025 12:40 PM EST Appointment [facility] MR Imaging, Pereyra [address] [place] [address] Chance De PA-C [address], [address] 4 [place] [address] [email or web address]. [email or web address] 07/03/2025 1:30 PM EST Office Visit [facility] Department of Neurosurgery [address] [place] [address] Chance De PA-C [address], [address] 4 [place] [address] [email or web address] 07/17/2025 1:00 PM EST Evaluation [facility] Multispecialty [address] [place] [address] Meghan Duarte, AuD [address] [place] [address] [email or web address] 07/17/2025 1:45 PM EST [facility] [address] [place] [address] Meghan Duarte, AuD [address] [place] [address] [email or web address] documented as of this encounter Visit Diagnoses Not on filedocumented in this encounter Additional Health Concerns Assessment Noted Time PHQ-2 Depression Total Score: 0 07/01/20 21 1:15 PM EST documented as of this encounter Care Teams Senior Ruby Developer Relationship Specialty Start Date End Date Iris Serna MD [address] [place] [address] PCP - General Family Medicine 04/26/20 documented as of this encounter Additional Source Comments The information contained in this document represents components of the legal health record. It is not the complete legal health record.[facility]
--- OUTSIDE RECORDS SUMMARY | 2024-12-07 10:09 | XMS_ITS | Encounter Summary ---
Author Organization [facility] [address] Care Team Providers Care Associate Doctor Name Role Phone Iris Serna MD Primary Care Provider [phone] Reason for Visit * Reason Onset Date Comments Med Refill 12/05/2024 Encounter Details Date Type Department Care Team (Late st Contact Info) Description 12/05/2024 Telephone Infectious Disease - [place] [address] [place] [address] Juma Avilez LPN Med Refill Social History Tobacco Use Types Packs/Day Years [...] care for your loved ones. For example, childcare attendant or elderly care for an older adult? [...] as of this encounter Progress Notes * Juma Avilez LPN - 12/05/2024 12:32 PM EDT Pt hopes Rx's for Levaquin 500 mg PO daily x 6 weeks & Rifampin 600 mg PO at bedtime x 6 weeks could be sent to her [facility] pharmacy on file. documented in this encounter Plan of Treatment Upcoming Encounters Date Type Department Care Team (Late st Contact Info) Description 12/21/2024 11:00 AM EDT Office Visit [facility] - [place] [address] [place] [id number] Nicolle Kelly MD [address] [place], [place] [id number] documented as of this encounter Visit Diagnoses Not on filedocumented in this encounter Care Teams Associate Doctor Relationship Specialty Start Date End Date Iris Serna MD [address] [place] [address] PCP - General Internal Medicine 08/02/24 documented as of this encounter
--- OUTSIDE RECORDS SUMMARY | 2024-12-07 10:09 | XMS_ITS | Patient Health Record ---
Author Organization [facility] Address [address] [facility] [address] [place] [address] Support Name Relationship Address Phone HEAVEN ESPOSITO Guarantor Unknown [phone] Reason For Referral No Information Medications Medication SIG (Take, Route, Fr equency, Duration) Notes Start Date End Date Status PriLOSEC OTC 20MG 1 ORAL daily for -3 James-MJ 09/08/2011 Active Problems Problem Type SNOMED Code ICD Code Onset Dates Problem Status W/U Status Risk Notes Problem Menopausal symptom (37712850) Symptomatic menopausal or female climacteric states (627.2) Active confirmed Major Problem Gynecological examination normal (561564878690697) Routine gynecological examination (V72.31) Active confirmed Major Plan Of Treatment No Information Insurance Providers Payer Name Payer Address Payer Phone Subscriber Number Group Number Insured Name Patient Relationship to Insured Coverage Start Date Coverage End Date [facility] [address] [place] [address] [id number] HEAVEN Self - patient is the insured
--- OUTSIDE RECORDS SUMMARY | 2024-12-07 10:09 | XMS_ITS | Clinical Summary ---
Author Organization [facility] Address [address] [facility] [address] [place] [address] Phone Care Team Providers Care Joint Special Operations Name Role Phone Iris Serna MD Primary Care Provider [phone] Allergies No known active allergies Medications Medication [...] Team Description 10/24/2024 1:00 PM EST Telemedicine [facility] Endocrine, Diabetes, and Hypertension [address] [address] Johnathan Lange MD Graves disease (Primary Dx) 10/20/2024 11:07 AM EST - 10/20/2024 11:59 PM EST Hospital Encounter [facility] [address] [place] [address] Johnathan Lange MD Discharge Disposition: Home or Self Care 10/08/2024 7:24 AM EST - 10/08/2024 11:59 PM EST Hospital Encounter [address] [place] [address] Marcia Romero MD, RACHID Discharge Disposition: Home or Self Care 09/28/2024 11:30 AM EST Office Visit [facility] Pain Management [address] [facility] [address] [place] [address] Marcia Romero MD, RACHID Lumbar radiculopathy (Primary Dx); Meralgia paresthetica, unspecified laterality; Neuralgia; Lumbar radicular pain; Spinal stenosis, lumbar region, without neurogenic claudication; Lumbar radiculitis 09/28/2024 Procedure Pass [address] [place] [address] 09/14/2024 Orders Only [facility] Department of Neurosurgery [address] [place] [address] Marylou Owen Vestibular schwannoma (Primary Dx) from Last 3 Months Family History Medical [...] st Contact Info) Description 09/14/2024 Procedure Pass [facility] MR Imaging, Hafsa [address] [place] [address] 05/29/2025 1:20 PM EDT Telemedicine [facility] Endocrine, Diabetes, and Hypertension [address] [place] [address] Johnathan Lange MD [address] [place] [address] Endocrinology, Diabetes and Hypertension, RFB[address] [place] [address] [email or web address] 07/03/2025 12:40 PM EST Appointment [facility] MR Walker, Hafsa [address] [place] [address] Chance De PA-C [address] [facility], Floor 4 [place] [address] [email or web address] 07/03/2025 1:30 PM EST Office Visit [facility] Department of Neurosurgery [address] [place] [address] Chance De PA-C [address] [facility], Floor 4 [place] [address] [email or web address]. [email or web address] 07/17/2025 1:00 PM EST Evaluation [facility] Multispecialty 20 [place] [address] Meghan Duarte, AuD [address] [place] [address] [email or web address] 07/17/2025 1:45 PM EST Evaluation [facility] [address] [place] [address] DuarteMeghan alegria, AuD [address] [place] [address] [email or web address] Health Maintenance Due Date Last Done Comments [...] INITIAL (ONE-TIME) 11/28/2023 INFLUENZA VACCINE (#1) 2024 , 06/11/2021, 06/19/2020, Additional history exists COVID-19 VACCINE [...] this topic Medical Devices Implanted Type Area Human Services Supervisor Device Identifier Shelf Expiration Date Model / Serial / Lot Coil Embolization 6mm 14cm .035in Lilly Soft [place] Synthetic Fiber Stretch - [id number] Implanted:Qty: 1 on 05/07/2020 by Kole Romeo MD at [facility] Coil Left: Ovary [employer] 06/10/2024 [id number] / / [id number] Description:Left Ovarian Vei n MRI SAFETY INFORMATION [...] after 15 minutes of continuous scanning. 07/01/2021 [facility] https://www.ZenDay/data/resources/[id number].pd Coil Embolization 4mm 14cm .035in Lilly Soft [place] Synthetic Fiber Stretch - [id number] Implanted:Qty: 1 on 05/07/2020 by Kole Romeo MD at [facility] Coil Right: Vein [employer] 06/22/2024 [id number] / / [id number] Description:RT OVARIAN VEIN MRI SAFETY INFORMATION Nonclinical [...] after 15 minutes of continuous scanning. 07/01/2021 [facility]www.ZenDay/data/resources/[id number].pd Coil Embolization 4mm 14cm .035in Lilly Soft [place] Synthetic Fiber Stretch - [id number] Implanted:Qty: 1 on 05/07/2020 by Kole Romeo MD at [facility] Coil Right: Vein [employer] 06/22/2024 [id number] / / [id number] Description:RT OVARIAN VEIN MRI SAFETY INFORMATION Nonclinical [...] after 15 minutes of continuous scanning. 07/01/2021 [facility]://www.ZenDay/data/resources/[id number].pd Coil Embolization 4mm 14cm .035in Lilly Soft [place] Synthetic Fiber Stretch - [id number] Implanted:Qty: 1 on 05/07/2020 by Kole Romeo MD at [facility] Coil Right: Vein [employer] 06/22/2024 [id number] / / [id number] Description:RT OVARIAN VEIN MRI SAFETY INFORMATION Nonclinical [...] after 15 minutes of continuous scanning. 07/01/2021 [facility]www.ZenDay/data/resources/[id number].pd Coil Embolization 12mm 14cm .035in Lilly Soft [place] Synthetic Fiber Stretch - [id number] Implanted:Qty: 1 on 05/07/2020 by Kole Romeo MD at [facility] Coil Right: Vein [employer] 11/09/2024 [id number] / / [id number] Description:RT OVARIAN VEIN MRI SAFETY INFORMATION Nonclinical [...] after 15 minutes of continuous scanning. 07/01/2021 [facility]://www.ZenDay/data/resources/[id number].pd Coil Embolization 6mm 14cm .035in Lilly Soft [place] Synthetic Fiber Stretch - [id number] Implanted:Qty: 1 on 05/07/2020 by Kole Romeo MD at [facility] Coil Left: Ovary [employer] 06/10/2024 [id number] / / [id number] Description:Left Ovarian Vei n MRI SAFETY INFORMATION [...] 15 minutes of continuous scanning. 07/01/2021 [facility] https://www.ZenDay/data/resources/[id number].pd Coil Embolization 6mm 14cm .035in Lilly Soft [place] Synthetic Fiber Stretch - [id number] Implanted:Qty: 1 on 05/07/2020 by Kole Romeo MD at [facility] Coil Left: Ovary [employer] 06/10/2024 [id number] / / [id number] Description:Left Ovarian Vei n MRI SAFETY INFORMATION [...] 15 minutes of continuous scanning. 07/01/2021 [facility] https://www.ZenDay/data/resources/[id number].pd Coil Embolization 6mm 14cm .035in Lilly Soft [place] Synthetic Fiber Stretch - [id number] Implanted:Qty: 1 on 05/07/2020 by Kole Romeo MD at [facility] Coil Left: Ovary [employer] 06/10/2024 [id number] / / [id number] Description:Left Ovarian Vei n MRI SAFETY INFORMATION [...] 15 minutes of continuous scanning. 07/01/2021 [facility] https://www.ZenDay/data/resources/[id number].pd Coil Embolization 6mm 14cm .035in Lilly Soft [place] Synthetic Fiber Stretch - [id number] Implanted:Qty: 1 on 05/07/2020 by Kole Romeo MD at [facility] Coil Left: Ovary [employer] 06/10/2024 [id number] / / [id number] Description:Left Ovarian Vei n MRI SAFETY INFORMATION [...] 15 minutes of continuous scanning. 07/01/2021 [facility] https://www.ZenDay/data/resources/[id number].pd Coil Embolization 6mm 14cm .035in Lilly Soft [place] Synthetic Fiber Stretch - [id number] Implanted:Qty: 1 on 05/07/2020 by Kole Romeo MD at [facility] Coil Left: Ovary [employer] 06/10/2024 [id number] / / [id number] Description:Left Ovarian Vei n MRI SAFETY INFORMATION [...] after 15 minutes of continuous scanning. 07/01/2021 [facility] https://www.ZenDay/data/resources/[id number].pd Coil Embolization 6mm 14cm .035in Lilly Soft [place] Synthetic Fiber Stretch - [id number] Implanted:Qty: 1 on 05/07/2020 by Kole Romeo MD at [facility] Coil Left: Ovary [employer] 06/10/2024 [id number] / / [id number] Description:Left Ovarian Vei n MRI SAFETY INFORMATION [...] after 15 minutes of continuous scanning. 07/01/2021 [facility] https://www.ZenDay/data/resources/[id number].pd Coil Embolization 6mm 14cm .035in Lilly Soft [place] Synthetic Fiber Stretch - [id number] Implanted:Qty: 1 on 05/07/2020 by Kole Romeo MD at [facility] Coil Left: Ovary [employer] 06/17/2024 [id number] / / [id number] Description:Left Ovarian Vei n MRI SAFETY INFORMATION [...] after 15 minutes of continuous scanning. 07/01/2021 [facility] https://www.ZenDay/data/resources/[id number].pd Coil Embolization 12mm 14cm .035in Lilly Soft [place] Synthetic Fiber Stretch - [id number] Implanted:Qty: 1 on 05/07/2020 by Kole Romeo MD at [facility] Coil Left: Ovary [employer] 11/09/2024 [id number] / / [id number] Description:Left Ovarian Vei n MRI SAFETY INFORMATION [...] 15 minutes of continuous scanning. 07/01/2021 [facility] https://www.ZenDay/data/resources/[id number].pd Coil Embolization 8mm 14cm .035in Lilly Soft [place] Synthetic Fiber Stretch - [id number] Implanted:Qty: 1 on 05/07/2020 by Kole Romeo MD at [facility] NODATA Left: Ovary [employer] 06/15/2024 [id number] / / [id number] Description:Left Ovarian Vei n MRI SAFETY INFORMATION [...] 15 minutes of continuous scanning. 07/01/2021 [facility] https://www.ZenDay/data/resources/[id number].pd Coil Embolization 8mm 14cm .035in Lilly Soft [place] Synthetic Fiber Stretch - [id number] Implanted:Qty: 1 on 05/07/2020 by Kole Romeo MD at [facility] NODATA Left: Ovary [employer] 06/30/2024 [id number] / / [id number] Description:Left Ovarian Vei n MRI SAFETY INFORMATION [...] 15 minutes of continuous scanning. 07/01/2021 [facility] https://www.ZenDay/data/resources/[id number].pd Coil Embolization 8mm 14cm .035in Lilly Soft [place] Synthetic Fiber Stretch - [id number] Implanted:Qty: 1 on 05/07/2020 by Kole Romeo MD at [facility] [employer] Right: Vein [employer] 10/05/2024 X06894 / / [id number] Description:RT OVArian vein MRI SAFETY INFORMATION Nonclinical [...] after 15 minutes of continuous scanning. 07/01/2021 K[facility]ps://www.ZenDay/data/resources/[id number].pd Coil Embolization 8mm 14cm .035in Lilly Soft [place] Synthetic Fiber Stretch - [id number] Implanted:Qty: 1 on 05/07/2020 by Kole Romeo MD at [facility] Right: Vein [employer] 10/05/2024 [id number] / / [id number] Description:RT OVARIAN VEIN MRI SAFETY INFORMATION Nonclinical [...] after 15 minutes of continuous scanning. 07/01/2021 [facility]://www.ZenDay/data/resources/[id number].pd Coil Embolization 8mm 14cm .035in Lilly Soft [place] Synthetic Fiber Stretch - [id number] Implanted:Qty: 1 on 05/07/2020 by Kole Romeo MD at [facility] Right: Vein [employer] 10/05/2024 [id number] / / [id number] Description:RT OVARIAN VEIN MRI SAFETY INFORMATION Nonclinical [...] after 15 minutes of continuous scanning. 07/01/2021 [facility]://www.ZenDay/data/resources/[id number].pd Kit Graft 10ml Bone Void Filler Cement Injectable Calcium Phosphate Liquid Powder Bowl [place] Syringe Hydroset - [id number] Implanted:Qty: 1 on 07/11/2020 by Christiano Clifford MD, PhD, MPH at [facility] Right: Cranial JANICE CRANIOMAXILLOFACIAL DI 10/06/2021 [id number] / / [id number] Mesh Plate .4mm Md Cranial Matrixneuro Titanium Contourable Malleable Temporal - [id number] Implanted:Qty: 2 on 07/11/2020 by Christiano Clifford MD, PhD, MPH at [facility] NODATA Cranial SYNTHES 04.503.0 57 / / Screw Bone 1.5x4mm Ti Self Drilling Matrixneuro - [id number] Implanted:Qty: 9 on 07/11/2020 by Christiano Clifford MD, PhD, MPH at [facility] STANDARD Cranial SYNTHES 04.503.1 04.01 / / Graft 12x4cm Tissue Thin Ready To Use Alloderm Regenerative Tissue Matrix Implantable - [id number] Implanted:Qty: 1 on 07/11/2020 by Christiano Clifford MD, PhD, MPH at [facility] Right: Cranial ALLERGAN 04/24/2022 [id number] / / [id number] Graft Duragen Plus 3x3in Dural Regeneration Matrix Pk/5ea - [id number] Implanted:Qty: 1 on 07/11/2020 by Christiano Clifford MD, PhD, MPH at [facility] Right: Cranial [employer]RY 10/21/2022 [id number] / / [id number] Procedures Procedure Name Priority Date/Time Associated Diagnosis Comments TSH Routine 10/20/2024 11:07 AM EST Graves disease FREE T4 Routine 10/20/2024 11:07 AM EST Graves disease MRI LUMBAR SPINE (NEURO) WITHOUT CONTRAST Routine 10/08/2024 8:16 AM EST Lumbar radiculopathy from Last 3 Months Results * TSH (10/20/2024 11:07 AM EST) TSH 3.23 0.27 - 4.20 uIU/mL [facility] Blood 10/20/2024 11:0 7 AM EST 10/20/2024 11:10 AM EST Johnathan Lange MD LAB BLOOD ORDERABLES Performing Organization Address City/[facility] Co de Phone Number [address] [address] * Free T4 (10/20/2024 11:07 AM EST) FREE T4 1.3 0.9 - 1.7 ng/dL [facility] Blood 10/20/2024 11:0 7 AM EST 10/20/2024 11:10 AM EST Johnathan Lange MD LAB BLOOD ORDERABLES Performing Organization Address [facility] Co de Phone Number [address] [address] * MRI LUMBAR SPINE (NEURO) WITHOUT CONTRAST [...] left neural foraminal narrowing. Procedure Note Vishal Fischer, DO - 10/11/2024 MRI LUMBAR SPINE (NEURO) [...] disease. The disc bulges at L4-5 and L5-E4ddiodic slightly worse than prior study. Marcia Romero MD, RACHID IMG MR XSPECIALTY from Last 3 Months Advance Directives For more information, please contact: [phone] (9AM - 5PM [facility], Thursday-Thursday) Documents on File Type Date Recorded Patient Sheriff Sergeant Expl anation Healthcare Proxy 07/25/2020 1:05 PM * Full Code (Latest Code Status on File) Date Activated Date Inactivated Comments 07/11/2020 7:15 PM Question Answer Comments Code Status Confirmed With: Patient * Full Code Date Activated Date Inactivated Comments 05/07/2020 2:14 PM 07/11/2020 7:46 AM Question Answer Comments Code Status Confirmed With: Patient Care Teams Joint Special Operations Relationship Specialty Start Date End Date Iris Serna MD [address] [place] [address] PCP - General Family Medicine 04/26/20 Additional Source Comments The information contained in this document represents components of the legal health record. It is not the complete legal health record.[facility]
[2024-12-07 10:10] LABS: Erythrocyte Sedimentation Rate 12 MM/HR (0-20)
--- OUTSIDE RECORDS SUMMARY | 2024-12-07 10:10 | XMS_ITS | Encounter Summary ---
Author Organization [facility] Address [address] [place] [address] Phone Care Team Providers Care Wire Bender Hand Name Role Phone Derrick Donovan MD Primary Care Provider Iris Serna MD Primary Care Provider [phone] [phone] Encounter Details Date Type Department Care Team (Late st Contact Info) Description 10/28/2016 Ancillary Orders [facility] Endocrine, Diabetes, and Hypertension [address] [place] [address] Ronna Hancock [address] [facility] [place] [address] [email or web address] Thyroid nodule Social History Tobacco [...] st Contact Info) Description 09/14/2024 Procedure Pass [facility] MR Imaging, Pereyra [address] [place] [address] 05/29/2025 1:20 PM EDT Telemedicine [facility] Endocrine, Diabetes, and Hypertension [address] [place] [address] Johnathan Lange MD [address] [place] [address] Endocrinology, Diabetes and Hypertension, [address] [place] [address] [email or web address] 07/03/2025 12:40 PM EST Appointment [facility] MR Imaging, Pereyra [address] [place] [address] Chance De PA-C [address], Floor 4 [place] [address] [email or web address]. KAROL 07/03/2025 1:30 PM EST Office Visit [facility] Department of Neurosurgery [address] [place] [address] Chance De PA-C [address], Floor 4 [place] [address] [email or web address]. KAROL 07/17/2025 1:00 PM EST Evaluation [facility] Multispecialty 20 [place] [address] Meghan Duarte, AuD [address] [place] [address] [email or web address] 07/17/2025 1:45 PM EST [facility] [address] [place] [address] Meghan Duarte, AuD [address] [place] [address] [email or web address] documented as of this encounter Results * US Thyroid Gland (10/28/2016 11:26 AM EST) Anatomical Region Laterality Modality Neck, Head, Chest Ultrasound 10/28/2016 Narrative 10/28/2016 11:34 AM EST ??TESTS PERFORMED ?Thyroid/Neck Ultrasound (83446) ??INDICATIONS/REASONS FOR TESTS ?Thyroid mass ?FINDINGS ?Thyroid [...] MD - 10/28/2016 TESTS PERFORMED Thyroid/Neck Ultrasound (88022) INDICATIONS/REASONS FOR TESTS Thyroid mass FINDINGS Thyroid gland Size Right lobe: 4.4 x 1.7 x 1.6 cm Left lobe: 4.6 x 1.9 x 1.7 cm Isthmus thickness: 0.4 cm Diffusely heterogeneous Lymph nodes Likely benign Left 10 x 9 x 4 mm, mid IJ chain IMPRESSION: Diffusely heterogeneous thyroid gland without definite discrete nodule Johnathan Lange MD [facility] THYROID documented in this encounter Visit Diagnoses Diagnosis Thyroid nodule Nontoxic uninodular goiter Thyroid nodule Nontoxic uninodular goiter documented in this encounter Care Teams Wire Bender Hand Relationship Specialty Start Date End Date Derrick Donovan MD [address] [place] [address] PCP - General 02/21/14 04/25/20 Iris Serna MD [address] [place] [address] PCP - General Family Medicine 04/26/20 documented as of this encounter Additional Source Comments The information contained in this document represents components of the legal health record. It is not the complete legal health record.[facility]
--- OUTSIDE RECORDS SUMMARY | 2024-12-07 10:10 | XMS_ITS | Encounter Summary ---
Author Organization [facility] Address [address] [facility] [address] [place] [address] Phone Care Team Providers Care Associate Professor Of Anthropology Name Role Phone Iris Serna MD Primary Care Provider [phone] Encounter Details Date Type Department Care Team (Late st Contact Info) Description 05/01/2020 Transcribe Orders [facility] [address] [place] [address] Fabienne Goss [address] [place] [address] [email or web address] Social History Tobacco Use Types Packs/Day Years [...] st Contact Info) Description 09/14/2024 Procedure Pass [facility] MR Imaging, Pereyra [address] [place] [address] 05/29/2025 1:20 PM EDT Telemedicine [facility] Endocrine, Diabetes, and Hypertension [address] [place] [address] Johnathan Lange MD [address] [place] [address] Endocrinology, Diabetes and Hypertension, [address] [place] [address] [email or web address] 07/03/2025 12:40 PM EST Appointment [facility] MR Imaging, Pereyra [address] [place] [address] Chance De PA-C [address], Floor 4 [place] [address] [email or web address]. KAROL 07/03/2025 1:30 PM EST Office Visit [facility] Department of Neurosurgery [address] [place] [address] Chance De PA-C [address], [address] 4 [place] [address] [email or web address]. KAROL 07/17/2025 1:00 PM EST [facility] [place] [address] Meghan Duarte, AuD [address] [place] [address] [email or web address] 07/17/2025 1:45 PM EST [facility] [address] [place] [address] Meghan Duarte, AuD [address] [place] [address] [email or web address] documented as of this encounter Results * US Pelvis Outside (No Interpretation) (05/01/2020 2:30 PM EDT) N[facility]ative [facility] - 05/01/2020 2:30 PM EDT This study is for PACS storage only and not for interpretation. Kole Romeo MD IMG OUTSIDE IMAGING W/OUT INTERPRETATION [facility] * CT Abdomen/Pelvis Outside (No Interpretation) (05/01/2020 2:30 PM EDT) Narrative [facility] - 05/01/2020 2:30 PM EDT This study is for PACS storage only and not for interpretation. Kole Romeo MD IMG OUTSIDE IMAGING W/OUT INTERPRETATION Performing Organization Address [facility] de Phone Number [facility] * CT Abdomen/Pelvis Outside (No Interpretation) (05/01/2020 2:30 PM EDT) Narrative [facility] - 05/01/2020 2:30 PM EDT This study is for PACS storage only and not for interpretation. Kole Romeo MD IMG OUTSIDE IMAGING W/OUT INTERPRETATION Performing Organization Address [facility] de Phone Number [facility] documented in this encounter Visit Diagnoses Not on filedocumented in this encounter Additional Health Concerns Assessment Noted Time PHQ-2 Depression Total Score: 0 04/16/20 20 12:22 PM EDT documented as of this encounter Care Teams Associate Professor Of Anthropology Relationship Specialty Start Date End Date Iris Serna MD [address] [place] [address] PCP - General Family Medicine 04/26/20 documented as of this encounter Additional Source Comments The information contained in this document represents components of the legal health record. It is not the complete legal health record.[facility]
--- OUTSIDE RECORDS SUMMARY | 2024-12-07 10:10 | XMS_ITS | Encounter Summary ---
Author Organization [facility] Address [address] [place] [address] [place] [phone] Phone Care Team Providers Care Jewelry Appraiser Name Role Phone Derrick Donovan MD Primary Care Provider Iris Serna MD Primary Care Provider [phone] Encounter Details Date Type Department Care Team (Late st Contact Info) Description 10/06/2016 Transcribe Orders [facility] Endocrine, Diabetes, and Hypertension [address] [address] Ronna Hancock [address] [facility] [place] [address] [email or web address] Thyroid nodule (Primary Dx) Social History Tobacco [...] Pass [facility] MR Imaging, Pereyra [address] [place] [address] 05/29/2025 1:20 PM EDT Telemedicine [facility] Endocrine, Diabetes, and Hypertension [address] [address] Johnathan Lagne MD 221 [facility] Endocrinology, Diabetes and Hypertension, [address] [place] [address] [email or web address] 07/03/2025 12:40 PM EST Appointment [facility] MR Imaging, Pereyra [address] [place] [address] Chance De PA-C [address], Floor 4 [place] [address] [email or web address] 07/03/2025 1:30 PM EST Office Visit [facility] Department of Neurosurgery [address] [place] [address] Chance De PA-C [address], [address] 4 [place] [address] [email or web address] 07/17/2025 1:00 PM EST [facility] [address] [place] [address] Meghan Duarte, AuD [address] [place] [address] [email or web address] 07/17/2025 1:45 PM EST [facility] [address] [place] [address] Meghan Duarte, AuD [address] [place] [address] [email or web address] documented as of this encounter Visit Diagnoses Diagnosis Thyroid nodule- Primary Nontoxic uninodular goiter documented in this encounter Care Teams Jewelry Appraiser Relationship Specialty Start Date End Date Derrick Donovan MD [address] [place] [id number] PCP - General 02/21/14 04/25/20 Iris Serna MD [address] [place] [address] PCP - General Family Medicine 04/26/20 documented as of this encounter Additional Source Comments The information contained in this document represents components of the legal health record. It is not the complete legal health record.[facility]
--- OUTSIDE RECORDS SUMMARY | 2024-12-07 10:10 | XMS_ITS | Encounter Summary ---
Author Organization [facility] Address [address] [facility] [address] [place] [phone] Phone Care Team Providers Care Animation Camera Operator Name Role Phone Iris Serna MD Primary Care Provider [phone] Encounter Details Date Type Department Care Team (Late Contact Info) Description 07/04/2021 Procedure Pass [facility] Radiology [address] [place] [address] Social History Tobacco Use Types Packs/Day Years [...] (Late Contact Info) Description 09/14/2024 Procedure Pass [facility] MR Imaging, Pereyra [address] [place] [address] 05/29/2025 1:20 PM EDT Telemedicine [facility] Endocrine, Diabetes, and Hypertension [address] [place] [address] Johnathan Lange MD 221 [facility] Endocrinology, Diabetes and Hypertension, [address] [place] [address] [email or web address] 07/03/2025 12:40 PM EST Appointment [facility] MR Imaging, Pereyra [address] [place] [address] Chance De PA-C [address] 4 [place] [address] [email or web address]. [email or web address] 07/03/2025 1:30 PM EST Office Visit [facility] Department of Neurosurgery [address] [place] [address] Chance De PA-C [address] 4 [place] [address] [email or web address]. [email or web address] 07/17/2025 1:00 PM EST Evaluation [facility] [address] [place] [address] Meghan Duarte, AuD [address] [place] [address] [email or web address] 07/17/2025 1:45 PM EST [facility] [address] [place] [address] Meghan Duarte, AuD [address] [place] [address] [email or web address] documented as of this encounter Visit Diagnoses Not on filedocumented in this encounter Additional Health Concerns Assessment Noted Time PHQ-2 Depression Total Score: 0 07/01/20 21 1:15 PM EST documented as of this encounter Care Teams Animation Camera Operator Relationship Specialty Start Date End Date Iris Serna MD [address] [place] [id number] PCP - General Family Medicine 04/26/20 documented as of this encounter Additional Source Comments The information contained in this document represents components of the legal health record. It is not the complete legal health record.[facility]
--- OUTSIDE RECORDS SUMMARY | 2024-12-07 10:11 | XMS_ITS | Clinical Summary ---
Author Organization [facility] Address [address] [place] [phone] Phone Care Team Providers Care Case Worker Name Role Phone Iris Serna MD Primary Care Provider [phone] Allergies No known active allergies Medications methIMAzole [...] days. 30 tablet 10/28/2024 1:29 PM EST 5 Active aspirin 81 mg EC tablet Take 1 tablet (81 mg total) by mouth 2 (two) times a day. Take this medication until completion to prevent postoperative blood clots. 84 tablet 10/28/2024 1:29 PM EST 5 026 Active HYDROmorphone (DILAUDID) 2 mg tabletIndicati ons:Infection of prosthetic joint, initial encounter ([facility] V24) Take 1 tablet (2 mg total) by mouth every 4 (four) hours if needed for severe pain. Max Daily Amount: 12 mg 32 tablet 10/28/2024 2:13 PM EST 5 Active levoFLOXacin (LEVAQUIN) 500 mg tablet Take 1 tablet (500 mg total) by mouth 1 (one) time each day. 30 tablet 1 5 Active rifAMPin (RIFADIN) 300 mg capsule Take 2 capsules (600 mg total) by mouth 1 (one) time each day. 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[facility] V24) 025 Osteoarthritis of left knee 08/03/2024 Encounters Date Type Department Care Team Description 12/05/2024 Telephone Infectious Disease - [facility] [address] [place] [address] Juma Avilez LPN MyChart 12/05/2024 Telephone Infectious Disease [facility] [address] [place] [address] Juma Avilez LPN Med Refill 11/29/2024 Telephone Infectious Disease [facility] [address] [place] [phone] Svetlana Cruz, LANIE Need order for removal of PICC line at end of therapy 11/15/2024 1:00 PM EDT Office Visit Infectious Disease - [facility] [address] [place] [phone] Nicolle Kelly MD Prosthetic joint infection, subsequent encounter (Primary Dx) 10/26/2024 10:14 AM EST Anesthesia Event [address] [place] [address] Ventura Isaacs MD Barnett, John T, MD 10/26/2024 10:00 AM EST - 10/26/2024 12:15 PM EST Surgery [facility] OR [address] [place] [address], [place] [address] Pako Aguilar MD INCISION DRAINAGE LEFT KNEE, POLY EXCHANGE 10/24/2024 12:36 PM EST - 10/28/2024 2:07 PM EST Hospital Encounter [facility] [address] [place] [phone] Juan Miguel Mosqueda MD Murray, Paul B, MD Infection of prosthetic joint, initial encounter ([facility] V24) (Primary Dx); Leg swelling; Acute pain of left knee; Fever, unspecified fever cause; 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 For example, child day care teacher or elderly care for an older adult? [...] AM EDT Office Visit Infectious Disease - [facility] [address] [place] [address] Nicolle Kelly MD [address] [place], [place] [id number] Health Maintenance Due Date Last Done Comments [...] this topic Medical Devices Implanted Type Area Center Director Device Identifier Shelf Expiration Date Model / Serial / Lot Component Femoral Sz4 Triathlon Cruc Ret Ste[employer] Chrome Lt - [id number] Implanted:Qty : 1 on 08/03/2024 by Pako Aguilar MD at [facility] Knee Left: Knee [employer] [id number] 03/12/2029 5517-F-40 1 / / [facility] Knee Bsplt Triathlon Ti Sz 4 - [id number] Implanted:Qty : 1 on 08/03/2024 by Pako Aguilar MD at [facility] Knee Left: Knee [employer] [id number] 05/04/2029 5536-B-40 0 / / [id number] Knee Ptla Asym Tritanium 29x9 - [id number] Implanted:Qty : 1 on 08/03/2024 by Pako Aguilar MD at [facility] Knee Left: Knee [employer] [id number] 04/27/2029 5552-L-29 9 / / [id number] Knee Tib Insrt Brng Sz 4 9mm - [id number] Implanted:Qty : 1 on 10/26/2024 by Pako Aguilar MD at [facility] Knee Left: Knee [employer] [id number] 05/17/2029 5531-G-40 9 / / [id number] Explanted Type Area Center Director Device Identifier Shelf Expiration Date Model / Serial / Lot Knee Tib Insrt Brng Sz 4 9mm - [id number] Implanted:Qty : 1 on 08/03/2024 by Pako Aguilar MD at [facility] Explanted:Qty : 1 on 10/26/2024 by Pako Aguilar MD at [facility] Knee Left: Knee [employer] [id number] 03/23/2029 5531-G-40 9 / / [id number] Procedures [...] Procedure: Insertion of #4 FR/18G PICC Indications: ??Longterm IV therapy Procedure Details Informed consent was [...] K/mcL LAB HEMETOLOGY METHOD 10/28/2024 5:54 AM [facility] RBC 3.58(L) 4.20 - 5.40 M/mcL LAB HEMETOLOGY METHOD 10/28/2024 5:54 AM [facility] Hemoglobin 10.6(L) 12.5 - 16.0 g/dL LAB HEMETOLOGY METHOD 10/28/2024 5:54 AM [facility] Hematocrit 31.0(L) 37.0 - 47.0 % LAB HEMETOLOGY METHOD 10/28/2024 5:54 AM [facility] MCV 86.7 78.0 - 100.0 FL LAB HEMETOLOGY METHOD 10/28/2024 5:54 AM [facility] MCH 29.7 25.0 - 33.0 pcg LAB HEMETOLOGY METHOD 10/28/2024 5:54 AM [facility] MCHC 34.3 32.0 - 36.0 g/dL LAB HEMETOLOGY METHOD 10/28/2024 5:54 AM [facility] RDW 12.4 12.1 - 16.2 % LAB HEMETOLOGY METHOD 10/28/2024 5:54 AM [facility] Platelets 263 150 - 450 K/mcL LAB HEMETOLOGY METHOD 10/28/2024 5:54 AM [facility] MPV 7.4 7.4 - 11.4 FL LAB HEMETOLOGY METHOD 10/28/2024 5:54 AM [facility] Neutrophils Relative 71.1 44.0 - 74.0 % LAB HEMETOLOGY METHOD 10/28/2024 5:54 AM [facility] Lymphocytes Relative 18.3(L) 20.0 - 48.0 % LAB HEMETOLOGY METHOD 10/28/2024 5:54 AM [facility] Monocytes Relative 7.7 2.0 - 12.0 % LAB HEMETOLOGY METHOD 10/28/2024 5:54 AM EST [facility] Eosinophils Relative 2.3 0.0 - 6.0 % LAB HEMETOLOGY METHOD 10/28/2024 5:54 AM EST [facility] Basophils Relative 0.6 0.0 - 2.0 % LAB HEMETOLOGY METHOD 10/28/2024 5:54 AM EST [facility] Neutrophils Absolute 4.30 1.80 - 7.80 K/mcL LAB HEMETOLOGY METHOD 10/28/2024 5:54 AM EST [facility] Lymphocytes Absolute 1.10 1.00 - 3.20 K/mcL LAB HEMETOLOGY METHOD 10/28/2024 5:54 AM EST [facility] Monocytes Absolute 0.50 0.00 - 0.80 K/mcL LAB HEMETOLOGY METHOD 10/28/2024 5:54 AM EST [facility] Eosinophils Absolute 0.10 0.00 - 0.50 K/mcL LAB HEMETOLOGY METHOD 10/28/2024 5:54 AM EST [facility] Basophils Absolute 0.00 0.00 - 0.20 K/mcL LAB HEMETOLOGY METHOD 10/28/2024 5:54 AM EST [facility] Blood Venous blood specimen / Unknown Venipuncture / Unknown 10/28/2024 5:29 AM EST 10/28/2024 5:35 AM EST us Miguelangel PHIPPS LAB BLOOD ORDERABLES Final Result [facility] [address] [place] [address], * Vancomycin, trough (10/28/2024 5:29 AM EST) Vancomycin Trough 13.1 10.0 - 20.0 mcg/mL LAB CHEMISTRY METHOD 10/28/2024 6:15 AM EST [facility] Blood Venous blood specimen / Unknown Venipuncture / Unknown 10/28/2024 5:29 AM EST 10/28/2024 5:35 AM EST us Pako Aguilar MD LAB BLOOD ORDERABLES Final Resu lt [facility] [address] [place] [address], [place] [phone] * (ABNORMAL) Basic metabolic panel (10/28/2024 5:29 AM EST) Only the most recent of5 resultswithin the time period is included. Sodium 141 135 - 145 mmol/L LAB CHEMISTRY METHOD 10/28/2024 6:17 AM [facility] Potassium 4.1 3.5 - 5.1 mmol/L LAB CHEMISTRY METHOD 10/28/2024 6:17 AM [facility] Chloride 106 98 - 107 mmol/L LAB CHEMISTRY METHOD 10/28/2024 6:17 AM [facility] CO2 28 24 - 32 mmol/L LAB CHEMISTRY METHOD 10/28/2024 6:17 AM [facility] Anion Gap 7 5 - 14 LAB CHEMISTRY METHOD 10/28/2024 6:17 AM [facility] Glucose 110(H) 70 - 99 mg/dL LAB CHEMISTRY METHOD 10/28/2024 6:17 AM [facility] BUN 9 7 - 17 mg/dL LAB CHEMISTRY METHOD 10/28/2024 6:17 AM [facility] Creatinine 0.60 0.50 - 1.00 mg/dL LAB CHEMISTRY METHOD 10/28/2024 6:17 AM [facility] eGFR 100 >=60 mL/min/1. 73m2 LAB CHEMISTRY METHOD 10/28/2024 6:17 AM [facility] Comment:Calculation based on the??Chronic Kidney Disease Epidemiology Collaboration (CKD-EPI) equation refit??without adjustment for race. BUN/Creatinine Ratio 15.0 12.0 - 20.0 LAB CHEMISTRY METHOD 10/28/2024 6:17 AM EST [facility] Calcium 8.5 8.4 - 10.2 mg/dL LAB CHEMISTRY METHOD 10/28/2024 6:17 AM EST [facility] Blood Venous blood specimen / Unknown Venipuncture / Unknown 10/28/2024 5:29 AM EST 10/28/2024 5:35 AM EST Chivo Hurst PA LAB BLOOD ORDERABLES Final Res ult Performing Organization Address City/[facility]/ZIP Co de Phone Number [facility] [address] [place] [address], [place] [phone] * Magnesium (10/27/2024 5:43 AM EST) Only the most recent of3 resultswithin the time period is included. Magnesium 1.8 1.7 - 2.8 mg/dL LAB CHEMISTRY METHOD 10/27/2024 6:41 AM EST [facility] Blood Venous blood specimen / Unknown Venipuncture / Unknown 10/27/2024 5:43 AM EST 10/27/2024 6:00 AM EST Chance Lea LABEL MAKER LAB BLOOD ORDERABLES Final Resu lt [facility] [address] [place] [address], [place] [phone] * TH AN LMA(NO CHARGE) (10/26/2024 10:35 AM EST) Narrative Barbie Torres CRNA - 10/26/2024 10:35 AM EST Barbie Torres CRNA ? 10/26/2024 10:36 AM General Information and Staff Patient location during procedure: OR Performed: resident/TOP FRAME MAKER/CAA Performed by: Barbie Torres CRNA Authorized by: [...] 14 days incubation. 11/09/2024 8:00 AM EDT [facility] Gram Stain Result Many WBCs present 11/09/2024 8:00 AM EDT [facility] Gram Stain Result No organisms seen 11/09/2024 8:00 AM EDT [facility] Tissue Structure of left knee region / Unknown 10/26/2024 10:07 AM EST 10/26/2024 10:45 AM EST us Pako Aguilar MD LAB MICROBIOLOGY - [facility] Final Result [facility] [address] [place] [address], [place] [phone] * Culture wound deep (10/26/2024 10:06 AM EST) Only the most recent of3 resultswithin the time period is included. Culture, Wound No Growth aerobically/a naerobically after 14 days incubation. 11/09/2024 8:21 AM EDT [facility] Gram Stain Result Few WBCs present 11/09/2024 8:21 AM EDT [facility] Gram Stain Result No organisms seen 11/09/2024 8:21 AM EDT [facility] Swab Structure of left knee region / Unknown 10/26/2024 10:06 AM EST 10/26/2024 10:44 AM EST Comment:EXT: [id number] Pako Aguilar MD LAB MICROBIOLOGY - GENERAL ILDA MERRITT Final Result [facility] [address] [place] [address], * (ABNORMAL) Complete blood count (10/26/2024 5:54 AM EST) Only the most recent of2 resultswithin the time period is included. WBC 6.1 4.0 - 10.5 K/mcL LAB HEMETOLOGY METHOD 10/26/2024 6:09 AM [facility] RBC 4.01(L) 4.20 - 5.40 M/mcL LAB HEMETOLOGY METHOD 10/26/2024 6:09 AM [facility] Hemoglobin 11.9(L) 12.5 - 16.0 g/dL LAB HEMETOLOGY METHOD 10/26/2024 6:09 AM [facility] Hematocrit 34.8(L) 37.0 - 47.0 % LAB HEMETOLOGY METHOD 10/26/2024 6:09 AM [facility] MCV 86.8 78.0 - 100.0 FL LAB HEMETOLOGY METHOD 10/26/2024 6:09 AM [facility] MCH 29.7 25.0 - 33.0 pcg LAB HEMETOLOGY METHOD 10/26/2024 6:09 AM [facility] MCHC 34.3 32.0 - 36.0 g/dL LAB HEMETOLOGY METHOD 10/26/2024 6:09 AM [facility] RDW 12.6 12.1 - 16.2 % LAB HEMETOLOGY METHOD 10/26/2024 6:09 AM [facility] Platelets 265 150 - 450 K/mcL LAB HEMETOLOGY METHOD 10/26/2024 6:09 AM EST [facility] MPV 8.0 7.4 - 11.4 FL LAB HEMETOLOGY METHOD 10/26/2024 6:09 AM EST [facility] Blood Venous blood specimen / Unknown Venipuncture / Unknown 10/26/2024 5:54 AM EST 10/26/2024 6:02 AM EST Chivo PHIPPS LAB BLOOD ORDERABLES Final Res ult Performing Organization Address City/[facility]/ZIP Co de Phone Number [facility] [address] [place] [address], [place] [phone] * ECG 12 lead (10/24/2024 8:07 PM EST) Ventricular Rate ECG 80 BPM GEMUSE Atrial Rate 80 BPM GEMUSE P-R Interval 134 ms GEMUSE QRS Duration 76 ms GEMUSE Q-T Interval 376 ms GEMUSE QTc 433 ms GEMUSE P Wave [place] 47 degrees GEMUSE R [place] -3 degrees GEMUSE T [place] 25 degrees GEMUSE ECG Interpretation Normal sinus rhythm Poor R wave progression Abnormal ECG No previous ECGs available Confirmed by JAY ROSENTHAL ([id number]) on 10/25/2024 6:10:28 PM GEMUSE 10/24/2024 8:07 PM EST 10/25/2024 6:10 PM EST Chance Lea NP ECG ORDERABLES Final Result GEMUSE * (ABNORMAL) Prothrombin time with INR (10/24/2024 8:07 PM EST) Protime 13.8(H) 10.5 - 13.3 sec LAB COAGULATION METHOD 10/24/2024 8:35 PM EST [facility] INR 1.2(H) 0.8 - 1.1 LAB COAGULATION METHOD 10/24/2024 8:35 PM EST [facility] Blood Venous blood specimen / Unknown Venipuncture / Unknown 10/24/2024 8:07 PM EST 10/24/2024 8:14 PM EST Narrative [facility] - 10/24/2024 8:35 PM EST Std. Therapy ?2.0-3.0 INR High Dose Therapy 3.0-4.5 INR Ranges may vary depending on clinical indications and protocol. us Chivo PHIPPS LAB BLOOD ORDERABLES Final Res ult [facility] [address] [place] [address], [place] [phone] * Type and screen (10/24/2024 8:07 PM EST) ABO Group O 10/24/2024 9:01 PM EST [facility] Rh Type Positive 10/24/2024 9:01 PM EST [facility] Antibody Screen Negative 10/24/2024 9:01 PM EST [facility] Blood Venous blood specimen / Unknown Venipuncture / Unknown 10/24/2024 8:07 PM EST 10/24/2024 8:14 PM EST us Chivo PHIPPS LAB BLOOD BANK TEST ORDERABLES Final Result [facility] [address] [place] [address], [place] [phone] * (ABNORMAL) Urinalysis with reflex microscopic and culture (10/24/2024 6:07 PM EST) Color, Urine Yellow Yellow, Colorless LAB URINALYSIS - AUTOMATED METHOD 10/24/2024 7:11 PM EST [facility] Clarity, Urine Hazy(A) Clear LAB URINALYSIS - AUTOMATED METHOD 10/24/2024 7:11 PM [facility] Specific [place] Urine 1.021 1.005 - 1.030 LAB URINALYSIS - AUTOMATED METHOD 10/24/2024 7:11 PM [facility] pH, Urine 5.0(A) 5.0 - 8.0 pH LAB URINALYSIS - AUTOMATED METHOD 10/24/2024 7:11 PM [facility] Leukocytes, Urine Small(A) Negative WBCs/mcL LAB URINALYSIS - AUTOMATED METHOD 10/24/2024 7:11 PM [facility] Nitrite, Urine Negative Negative LAB URINALYSIS - AUTOMATED METHOD 10/24/2024 7:11 PM [facility] Protein, Urine Negative Negative mg/dL LAB URINALYSIS - AUTOMATED METHOD 10/24/2024 7:11 PM [facility] Glucose, Urine Negative Negative mg/dL LAB URINALYSIS - AUTOMATED METHOD 10/24/2024 7:11 PM [facility] Ketones, Urine Negative Negative mg/dL LAB URINALYSIS - AUTOMATED METHOD 10/24/2024 7:11 PM [facility] Blood, Urine Negative Negative mg/dL LAB URINALYSIS - AUTOMATED METHOD 10/24/2024 7:11 PM [facility] RBC, Urine 1 0 - 3 /HPF LAB URINALYSIS - AUTOMATED METHOD 10/24/2024 7:11 PM [facility] WBC, Urine 6(H) 0 - 5 /HPF LAB URINALYSIS - AUTOMATED METHOD 10/24/2024 7:11 PM [facility] Squamous Epithelial, Urine 27(H) 0 - 5 /HPF LAB URINALYSIS - AUTOMATED METHOD 10/24/2024 7:11 PM [facility] Mucus, Urine Present(A) Not Present /HPF LAB URINALYSIS - AUTOMATED METHOD 10/24/2024 7:11 PM [facility] Urine Urine specimen obtained by clean catch procedure / Unknown Non-blood Collection / Unknown 10/24/2024 6:07 PM EST 10/24/2024 6:37 PM EST us Juan Miguel Mosqueda MD LAB URINE ORDERABLES Final Result [facility] [address] [place] [address], [place] [phone] * Mccarthy urine culture tube (10/24/2024 6:07 PM EST) Extra Tube Hold for add-ons. 10/24/2024 8:01 PM EST [facility] Comment:Auto resulted. Urine Urine specimen obtained by clean catch procedure / Unknown Non-blood Collection / Unknown 10/24/2024 6:07 PM EST 10/24/2024 6:37 PM EST us Juan Miguel Mosqueda MD LAB URINE ORDERABLES Final Result [facility] [address] [place] [address], [place] [phone] * Culture urine (10/24/2024 6:07 PM EST) Culture, Urine Mixed urogenital jeffry, no uropathogens present. Suggest repeat specimen, if clinically indicated. 10/26/2024 8:22 AM EST [facility] Urine Urine specimen obtained by clean catch procedure / Unknown Non-blood Collection / Unknown 10/24/2024 6:07 PM EST 10/24/2024 7:11 PM EST us Juan Miguel Mosqueda MD LAB MICROBIOLOGY - G ENERAL ORDERABLES Final Result [facility] [address] [place] [address], [place] [phone] * XR Chest 1 View (10/24/2024 5:54 PM EST) Anatomical Region Laterality Modality Body Radiographic Maria Esther ging 10/24/2024 6:34 PM EST Impressions 10/24/2024 6:35 PM EST FINDINGS/IMPRESSION: Lungs are clear. Heart is normal in size. Minimal dextroscoliosis in the spine. Report reviewed and signed by : Dr. Luis Mazariegos on 10/24/2024 6:35 PM. Workstation Name - [id number] -------- FINAL REPORT -------- Dictated By: Luis Mazariegos Dictated Date: 10/24/2024 18:34 ET Assigned Physician: Luis Mazariegos Reviewed and Electronically Signed By: Luis Mazariegos Signed Date: 10/24/2024 18:35 ET Workstation ID: [id number] Transcribed By: Self Edit Transcribed Date: 10/24/2024 [...] Mazariegos on 10/24/2024 6:35 PM.Workstation Name - [id number] -------- FINAL REPORT -------- Dictated By: Luis Mazariegos Dictated Date: 10/24/2024 18:34 ET Assigned Physician: Luis Mazariegos Reviewed and Electronically Signed By: Luis Mazariegos Signed Date: 10/24/2024 18:35 ET Workstation ID: [id number] Transcribed By: Self Edit Transcribed Date: 10/24/2024 18:34 ET us Juan Miguel Mosqueda MD IMG XR PROCEDURES Fi nal Result * Respiratory virus panel molecular study (10/24/2024 5:26 PM EST) Adenovirus Detection by PCR Not Detected Not Detected LAB MICROBIOLOGY METHOD 10/24/2024 8:22 PM EST [facility] Influenza A PCR Not Detected Not Detected LAB MICROBIOLOGY METHOD 10/24/2024 8:22 PM [facility] Influenza B PCR Not Detected Not Detected, Invalid LAB MICROBIOLOGY METHOD 10/24/2024 8:22 PM EST [facility] Coronavirus 229E Not Detected Not Detected LAB MICROBIOLOGY METHOD 10/24/2024 8:22 PM EST [facility] Coronavirus HKU1 Not Detected Not Detected LAB MICROBIOLOGY METHOD 10/24/2024 8:22 PM EST [facility] Coronavirus OC43 Not Detected Not Detected LAB MICROBIOLOGY METHOD 10/24/2024 8:22 PM [facility] Coronavirus NL63 Not Detected Not Detected LAB MICROBIOLOGY METHOD 10/24/2024 8:22 PM [facility] Parainfluenza Virus 1 Not Detected Not Detected LAB MICROBIOLOGY METHOD 10/24/2024 8:22 PM [facility] Parainfluenza Virus 2 Not Detected Not Detected LAB MICROBIOLOGY METHOD 10/24/2024 8:22 PM [facility] Parainfluenza Virus 3 Not Detected Not Detected LAB MICROBIOLOGY METHOD 10/24/2024 8:22 PM [facility] Parainfluenza Virus 4 Not Detected Not Detected LAB MICROBIOLOGY METHOD 10/24/2024 8:22 PM [facility] RSV PCR Not Detected Not Detected LAB MICROBIOLOGY METHOD 10/24/2024 8:22 PM [facility] Human Metapneumovirus A and B Not Detected Not Detected LAB MICROBIOLOGY METHOD 10/24/2024 8:22 PM [facility] Rhinovirus/Entero virus Not Detected Not Detected LAB MICROBIOLOGY METHOD 10/24/2024 8:22 PM EST [facility] Bordetella pertussis Not Detected Not Detected LAB MICROBIOLOGY METHOD 10/24/2024 8:22 PM EST [facility] Bordetella parapertussis Not Detected Not Detected LAB MICROBIOLOGY METHOD 10/24/2024 8:22 PM EST [facility] Mycoplasma pneumo by PCR Not Detected Not Detected LAB MICROBIOLOGY METHOD 10/24/2024 8:22 PM EST [facility] Chlamydia pneumoniae Not Detected Not Detected LAB MICROBIOLOGY METHOD 10/24/2024 8:22 PM EST [facility] SARS COV-2 Not Detected Not Detected, Invalid LAB MICROBIOLOGY METHOD 10/24/2024 8:22 PM EST [facility] Swab Both anterior nares / Unknown Non-blood Collection / Unknown 10/24/2024 5:26 PM EST 10/24/2024 5:47 PM EST Juan Miguel Mosqueda MD LAB MICROBIOLOGY - G ENERAL ORDERABLES Final Result [facility] [address] [place] [address], [place] [phone] * (ABNORMAL) Cell count with reflex differential, body fluid (10/24/2024 4:11 PM EST) Body Fluid Source Synovial 10/24/2024 5:36 PM [facility] Body Fluid Clarity Turbid 10/24/2024 5:36 PM [facility] Body Fluid Color Red 10/24/2024 5:36 PM [facility] Body Fluid RBC 3,940,350(H) 0 - 1 /mm3 LAB HEMETOLOGY METHOD 10/24/2024 5:36 PM [facility] Body Fluid Total Nucleated Cells 5,010(H) <150 /mm3 LAB HEMETOLOGY METHOD 10/24/2024 5:36 PM EST [facility] Synovial Fluid Structure of left knee region / Unknown Non-blood Collection / Unknown 10/24/2024 4:11 PM EST 10/24/2024 4:13 PM EST us Chivo PHIPPS LAB BODY FLUIDS AND STOOLS ORD ERABLES Final Result Performing Organization Address [facility]/ZIP Co de Phone Number [facility] [address] [place] [address], [place] [phone] * Culture body fluid with gram stain (10/24/2024 4:11 PM EST) Fluid Culture No Growth aerobically/a naerobically after 14 days incubation. 11/09/2024 11:11 AM EDT [facility] Gram Stain Result Moderate WBCs present 11/09/2024 11:11 AM EDT [facility] Gram Stain Result No organisms seen 11/09/2024 11:11 AM EDT [facility] Synovial Fluid Structure of left knee region / Unknown Non-blood Collection / Unknown 10/24/2024 4:11 PM EST 10/24/2024 4:13 PM EST us Chivo PHIPPS LAB MICROBIOLOGY - GENERAL ORD ERABLES Final Result Performing Organization Address [facility] Co de Phone Number [facility] [address] [place] [address], [place] [phone] * (ABNORMAL) Differential body fluid (10/24/2024 4:11 PM EST) Fluid Neutrophils 83.0(H) <25.0 % 10/24/2024 6:23 PM EST [facility] Fluid Lymphocytes 11.0 <75.0 % 10/24/2024 6:23 PM EST [facility] Fluid Monocytes/Macrop hages 3.0 <70.0 % 10/24/2024 6:23 PM EST [facility] Fluid Eosinophils 3.0(H) 0.0 - 0.0 % 10/24/2024 6:23 PM EST [facility] Synovial Fluid Structure of left knee region / Unknown Non-blood Collection / Unknown 10/24/2024 4:11 PM EST 10/24/2024 4:13 PM EST us Chivo PHIPPS LAB BODY FLUIDS AND STOOLS ORD ERABLES Final Result Performing Organization Address City/[facility]/ZIP Co de Phone Number [facility] [address] [place] [address], [place] [phone] * Crystal identification, body fluid (10/24/2024 4:11 PM EST) Crystals, Fluid Absent Absent 10/24/2024 6:05 PM EST [facility] Synovial Fluid Structure of left knee region / Unknown Non-blood Collection / Unknown 10/24/2024 4:11 PM EST 10/24/2024 4:13 PM EST us Chivo PHIPPS LAB BODY FLUIDS AND STOOLS ORD ERABLES Final Result Performing Organization Address City/[facility]/ZIP Co de Phone Number [facility] [address] [place] [address], [place] [phone] * XR Knee 3 Views Left (10/24/2024 3:04 PM EST) Anatomical Region Laterality Modality Lower Extremities, Knee Left Radiogra phic Imaging 10/24/2024 3:57 PM EST Impressions 10/24/2024 3:58 PM EST Status post left total knee arthroplasty with intact surgical hardware and anatomic alignment. Report reviewed and signed by : Dr. Ta Leong on 10/24/2024 3:58 PM. Workstation Name - [id number] -------- FINAL REPORT -------- Dictated By: Ta Leong Dictated Date: 10/24/2024 15:57 ET Assigned Physician: Ta Leong Reviewed and Electronically Signed By: Ta Leong Signed Date: 10/24/2024 15:58 ET Workstation ID: [id number] Transcribed By: Self Edit Transcribed Date: 10/24/2024 [...] Leong on 10/24/2024 3:58 PM.Workstation Name - [id number] -------- FINAL REPORT -------- Dictated By: Ta Leong Dictated Date: 10/24/2024 15:57 ET Assigned Physician: Ta Leong Reviewed and Electronically Signed By: Ta Leong Signed Date: 10/24/2024 15:58 ET Workstation ID: [id number] Transcribed By: Self Edit Transcribed Date: 10/24/2024 [...] on 10/24/2024 2:09 PM. Workstation Name - [id number] -------- FINAL REPORT -------- Dictated By: Vishal Riddle Dictated Date: 10/24/2024 14:08 ET Assigned Physician: Vishal Riddle Reviewed and Electronically Signed By: Vishal Riddle Signed Date: 10/24/2024 14:09 ET Workstation ID: [id number] Transcribed By: Self Edit Transcribed Date: 10/24/2024 [...] Riddle on 10/24/2024 2:09 PM.Workstation Name - [id number] -------- FINAL REPORT -------- Dictated By: Vishal Riddle Dictated Date: 10/24/2024 14:08 ET Assigned Physician: Vishal Riddle Reviewed and Electronically Signed By: Vishal Riddle Signed Date: 10/24/2024 14:09 ET Workstation ID: [id number] Transcribed By: Self Edit Transcribed Date: 10/24/2024 14:08 ET Juan Miguel Mosqueda MD CV VASCULAR PROCEDUR ES Final Result * Lactate, with reflex (10/24/2024 1:38 PM EST) [facility] LACTIC ACID 1.1 0.5 - 2.2 mmol/L LAB BLOOD GAS METHOD 10/24/2024 2:02 PM EST [facility] Blood Venous blood specimen / Unknown Venipuncture / Unknown 10/24/2024 1:38 PM EST 10/24/2024 1:48 PM EST Juan Miguel Mosqueda MD LAB BLOOD ORDERABLES Final Result Performing Organization Address City/[facility]/ZIP Co de Phone Number [facility] [address] [place] [address], [place] [phone] * Blood Culture, Peripheral Draw #1 (10/24/2024 1:38 PM EST) Only the most recent of2 resultswithin the time period is included. Pathologist [facility] Culture, Blood No growth at 5 days 10/29/2024 3:01 PM EST [facility] Blood Venous blood specimen / Unknown Venipuncture / Unknown 10/24/2024 1:38 PM EST 10/24/2024 1:49 PM EST Juan Miguel Mosqueda MD LAB MICROBIOLOGY - G ENERAL ORDERABLES Final Result [facility] [address] [place] [address], [place] [phone] * (ABNORMAL) Sedimentation rate (10/24/2024 1:38 PM EST) [facility] Sed Rate 49(H) 0 - 20 mm/hr LAB HEMETOLOGY METHOD 10/24/2024 2:11 PM EST [facility] Blood Venous blood specimen / Unknown Venipuncture / Unknown 10/24/2024 1:38 PM EST 10/24/2024 1:47 PM EST us Juan Miguel Mosqueda MD LAB BLOOD ORDERABLES Final Result [facility] [address] [place] [address], [place] [phone] * (ABNORMAL) C-reactive protein (10/24/2024 1:38 PM EST) [facility] C-Reactive Protein 19.7(H) <=0.9 mg/dL LAB CHEMISTRY METHOD 10/24/2024 2:23 PM EST [facility] Blood Venous blood specimen / Unknown Venipuncture / Unknown 10/24/2024 1:38 PM EST 10/24/2024 1:47 PM EST Juan Miguel Mosqueda MD LAB BLOOD ORDERABLES Final Result [facility] [address] [place] [address], [place] [phone] from Last 3 Months Insurance MEDICARE [employer] Advance Directives * Full Code - Default [...] currently active code status orders. Care Teams Case Worker Relationship Specialty Start Date End Date Iris Serna MD [address] [place] [address] PCP - General Internal Medicine 08/02/24
--- OUTSIDE RECORDS SUMMARY | 2024-12-07 10:11 | XMS_ITS | Encounter Summary ---
Author Organization [facility] Address [address] [place] [phone] Phone Care Team Providers Care Engineering Geologist Name Role Phone Derrick Donovan MD Primary Care Provider Iris Serna MD Primary Care Provider [phone] Encounter Details Date Type Department Care Team (Late st Contact Info) Description 09/28/[address] [facility] MR Imaging, Pereyra [address] [place] [address] Social History Tobacco Use Types Packs/Day Years [...] [facility] MR Imaging, Pereyra [address] [place] [address] 05/29/2025 1:[address] [facility] Endocrine, Diabetes, and Hypertension [address] [place] [address] Johnathan Lange MD [address] [place] [address] Endocrinology, Diabetes and Hypertension, [address] [place] [address] [email or web address] 07/03/2025 12:[address] [facility] MR Imaging, [place]reyra [address] [place] [address] Chance De PA-C [address] [place] [address] [email or web address] KAROL 07/03/2025 1:30 PM EST Office [address] [facility] Department of Neurosurgery [address] [place] [address] Chance De PA-C [address] [place] [address] [email or web address] [email or web address] 07/17/2025 1:00 PM EST [facility] [address] [place] [address] Meghan Duarte, AuD [address] [place] [address] [email or web address] 07/17/2025 1:45 PM EST [facility] [address] [place] [address] Meghan Durate, AuD [address] [place] [address] [email or web address] documented as of this encounter Visit Diagnoses Not on filedocumented in this encounter Additional Health Concerns Assessment Noted Time PHQ-2 Depression Total Score: 0 06/13/20 19 12:35 PM EDT documented as of this encounter Care Teams Engineering Geologist Relationship Specialty Start Date End Date Derrick Donovan MD [address] [place] [address] PCP - General 02/21/14 04/25/20 Iris Serna MD [address] [place] [address] PCP - General Family Medicine 04/26/20 documented as of this encounter Additional Source Comments The information contained in this document represents components of the legal health record. It is not the complete legal health record.[facility]
--- OUTSIDE RECORDS SUMMARY | 2024-12-07 10:11 | XMS_ITS | Encounter Summary ---
Author Organization [facility] Address [address] [place] [address] Phone Care Team Providers Care Steward/Stewardess Deck Name Role Phone Derrick Donovan MD Primary Care Provider Iris Serna MD Primary Care Provider [phone] Encounter Details Date Type Department Care Team (Late st Contact Info) Description 09/28/2019 Procedure Pass [facility] MR Imaging, Pereyra [address] [place] [address] Social History Tobacco Use Types Packs/Day Years [...] st Contact Info) Description 09/14/2024 Procedure Pass [facility] MR Imaging, Preeyra [address] [place] [address] 05/29/2025 1:20 PM EDT Telemedicine [facility] Endocrine, Diabetes, and Hypertension [address] [place] [address] Johnathan Lange MD [address] [place] [address] Endocrinology, Diabetes and Hypertension, [address] [place] [address] [email or web address] 07/03/2025 12:40 PM EST Appointment [facility] MR Imaging, Pereyra [address] [place] [address] Chance De PA-C [address] [place] [address] [email or web address] KAROL 07/03/2025 1:30 PM EST Office Visit [facility] Department of Neurosurgery [address] [place] [address] Chance De PA-C [address] [place] [address] [email or web address]. KAROL 07/17/2025 1:00 PM EST [facility] [address] [place] [address] Meghan Duarte, AuD [address] [place] [address] [email or web address] 07/17/2025 1:45 PM EST [facility] [address] [place] [address] Meghan Duarte, AuD [address] [place] [address] [email or web address] documented as of this encounter Visit Diagnoses Not on filedocumented in this encounter Additional Health Concerns Assessment Noted Time PHQ-2 Depression Total Score: 0 06/13/20 19 12:35 PM EDT documented as of this encounter Care Teams Steward/Stewardess Deck Relationship Specialty Start Date End Date Derrick Donovan MD [address] [place] [address] PCP - General 02/21/14 04/25/20 Iris Serna MD [address] [place] [address] PCP - General Family Medicine 04/26/20 documented as of this encounter Additional Source Comments The information contained in this document represents components of the legal health record. It is not the complete legal health record.[facility]
--- OUTSIDE RECORDS SUMMARY | 2024-12-07 10:11 | XMS_ITS | Encounter Summary ---
Author Organization [facility] Address [address] [place] [address] Phone Care Team Providers Care Wooden Frame Builder Name Role Phone Derrick Donovan MD Primary Care Provider Iris Serna MD Primary Care Provider [phone] Encounter Details Date Type Department Care Team (Late st Contact Info) Description 09/26/2019 Procedure Pass [facility] MR Imaging, Pereyra [address] [place] [address] Social History Tobacco Use Types Packs/Day Years [...] st Contact Info) Description 09/14/2024 Procedure Pass [facility] MR Imaging, Pereyra [address] [place] [address] 05/29/2025 1:20 PM EDT Telemedicine [facility] Endocrine, Diabetes, and Hypertension [address] [place] [address] Johnathan Lange MD [address] [place] [address] Endocrinology, Diabetes and Hypertension, [address] [place] [address] [email or web address] 07/03/2025 12:40 PM EST Appointment [facility] MR Imaging, Pereyra [address] [place] [address] Chance De PA-C [address] [place] [address] [email or web address] KAROL 07/03/2025 1:30 PM EST Office Visit [facility] Department of Neurosurgery [address] [place] [address] Chance De PA-C [address] [place] [address] [email or web address]. [email or web address] 07/17/2025 1:00 PM EST [facility] [address] [place] [address] Meghan Duarte, AuD [address] [place] [address] [email or web address] 07/17/2025 1:45 PM EST [facility] [address] [place] [address] Meghan Duarte, AuD [address] [place] [address] [email or web address] documented as of this encounter Visit Diagnoses Not on filedocumented in this encounter Additional Health Concerns Assessment Noted Time PHQ-2 Depression Total Score: 0 06/13/20 19 12:35 PM EDT documented as of this encounter Care Teams Wooden Frame Builder Relationship Specialty Start Date End Date Derrick Donovan MD [address] [place] [address] PCP - General 02/21/14 04/25/20 Iris Serna MD [address] [place] [address] PCP - General Family Medicine 04/26/20 documented as of this encounter Additional Source Comments The information contained in this document represents components of the legal health record. It is not the complete legal health record.[facility]
[2024-12-07 10:14] LABS: Alanine Aminotransferase 24 U/L (0-31); Albumin Level 4.3 g/dL (3.5-5.0); Alkaline Phosphatase 60 U/L (39-117); Anion Gap 11 (12-20); Aspartate Amino Transferase 21 U/L (5-31); Bilirubin Total 0.8 mg/dL (0.0-1.0); Blood Urea Nitrogen 14 mg/dL (9-16); C Reactive Protein 0.47 mg/dL (< or = 0.50); Calcium 9.4 mg/dL (8.4-10.2); Carbon Dioxide 26 mmol/L (22-29); Chloride 108 mmol/L (96-108); Estimated Glomerular Filt Rate > 60; Glucose Random 90 mg/dL (60-115); Potassium 4.3 mmol/L (3.3-5.1); Sodium 141 mmol/L (135-145); Total Protein 6.4 g/dL (6.5-8.0)
[2024-12-07 10:16] LABS: Vancomycin Trough 14.5 mcg/mL (10.0-20.0)
== END 2024-12-07 09:16 | disposition home or self-care (01) ==
LOC: HO.HVNA 09:15
PROVIDERS: Visit Provider Internal Medicine Infectious Disease
DX: T84.54XA Infection and inflammatory reaction due to internal left knee prosthesis, initial encounter (principal); Z96.652 Presence of left artificial knee joint; X58.XXXA Exposure to other specified factors, initial encounter; Y65.8 Other specified misadventures during surgical and medical care
CPT/HCPCS: 36415; 80053; 80202; 85025; 85652; 86140